=== PATIENT | male | born 1940 | race Caucasian/White ===

== ENCOUNTER 2019-08-16 13:20 | Emergency (ER) | payer MEDICAID, SELFPAY ==
[2019-08-16 13:21] VITALS: BMI 23.6
--- NOTE | 2019-08-16 13:21 | CTR_ITS ---
PROCEDURE INFORMATION: Exam: CT Maxillofacial Without Contrast Exam date and time: 08/16/2019 1:22 PM Age: 78 years old Clinical indication: Injury or trauma; Fall; Initial encounter; Blunt trauma (contusions or hematomas); Nose TECHNIQUE: Imaging protocol: Computed tomography images of the face without contrast. Radiation optimization: All CT scans at this facility use at least one of these dose optimization techniques: automated exposure control; mA and/or kV adjustment per patient size (includes targeted exams where dose is matched to clinical indication); or iterative reconstruction. COMPARISON: No relevant prior studies available. RADIATION DOSE METRICS: Total DLP: 773.98 mGy-cm FINDINGS: Orbits: Bilateral prior cataract surgery. Bones/joints: No acute bony fracture. Sinuses: Normal. No air-fluid levels. Dental: Edentulous maxilla. Soft tissues: This gas is present within the cartilaginous nasal septum (series 2, image 46; series 601, image 35). CT/CT facial bones wo con* [id number] IMPRESSION: 1. Cartilaginous nasal septal injury. 2. No acute facial bony injury identified. Radiation Dose CTDIVOL = (mGy): DLP = 773.98 (mGy-cm)
--- NOTE | 2019-08-16 13:21 | CTR_ITS ---
PROCEDURE INFORMATION: Exam: CT Head Without Contrast Exam date and time: 08/16/2019 1:22 PM Age: 78 years old Clinical indication: Injury or trauma; Fall TECHNIQUE: Imaging protocol: Computed tomography of the head without contrast. Radiation optimization: All CT scans at this facility use at least one of these dose optimization techniques: automated exposure control; mA and/or kV adjustment per patient size (includes targeted exams where dose is matched to clinical indication); or iterative reconstruction. COMPARISON: No relevant prior studies available. RADIATION DOSE METRICS: Total DLP: 896.04 mGy-cm FINDINGS: Brain: Mild hypoattenuating foci are noted in the central cerebral, posterior superior periatrial and anterior lateral ventricular periventricular white matter bilaterally. No intracranial hemorrhage. No mass or acute cortical infarction identified. Ventricles: Prominence of the subarachnoid spaces is consistent with the patient's age of 78 years. Disproportionate enlargement of the lateral ventricles is present with an Munguia ratio of 40.2%. The anterior third ventricular transverse dimension is 13.0 mm. The fourth ventricle is normal in size. Bones/joints: Unremarkable. No acute fracture. Sinuses: Visualized sinuses are unremarkable. No fluid levels. Mastoid air cells: Visualized mastoid air cells are well aerated. Orbits: Bilateral prior cataract surgery. Soft tissues: Unremarkable. Vasculature: Mild atherosclerotic calcifications are present involving the carotid artery siphons bilaterally. CT/CT head wo con* [id number] IMPRESSION: 1. Disproportionate prominence of the lateral and third ventricles. Recommend clinical exclusion of symptoms of normal pressure hydrocephalus. Otherwise, age appropriate supratentorial and infratentorial atrophy. 2. Moderate chronic white matter microvascular ischemic disease. 3. No acute intracranial injury identified. Radiation Dose CTDIVOL = (mGy): DLP = 896.04 (mGy-cm)
[2019-08-16 13:34] VITALS: BP 156/104; PULSE 98; RESP 20; TEMP 36.6; O2SAT 99
--- NOTE | 2019-08-16 13:39 | CTR_ITS ---
PROCEDURE INFORMATION: Exam: CT Cervical Spine Without Contrast Exam date and time: 08/16/2019 1:40 PM Age: 78 years old Clinical indication: Injury or trauma; Fall; Initial encounter; Blunt trauma TECHNIQUE: Imaging protocol: Computed tomography images of the cervical spine without contrast. Radiation optimization: All CT scans at this facility use at least one of these dose optimization techniques: automated exposure control; mA and/or kV adjustment per patient size (includes targeted exams where dose is matched to clinical indication); or iterative reconstruction. COMPARISON: No relevant prior studies available. RADIATION DOSE METRICS: Total DLP: 656.14 mGy-cm FINDINGS: Vertebrae: Left C3-C4 facet joint fusion. Discs/Spinal canal/Neural foramina: Moderate atlantodental osteoarthritis. Moderate bilateral C2-C3 bilateral primary facet osteoarthritis. Mild right C3-C4 primary facet osteoarthritis. Severe right C4-C5 primary facet osteoarthritis. Moderate right C4-C5 neural foraminal narrowing. Moderate left, mild right C7-T1 primary facet osteoarthritis. Soft tissues: Unremarkable. Trachea: C5-6 and C6-7 degenerative disc disease with moderate spondylosis. Lungs: Mild paraseptal emphysema bilaterally. CT/CT cervical spin wo con* [id number] IMPRESSION: 1. Degenerative changes as above. 2. No acute cervical spinal bony injury identified. 3. Pulmonary emphysema. Radiation Dose CTDIVOL = (mGy): DLP = 656.14 (mGy-cm)
--- NOTE | 2019-08-16 13:56 | W.ED.FALL ---
HPI - Fall General: Chief Complaint: Fall Stated Complaint: HEAD AND FACE TRAUMA S/P FALL Time Seen by Provider: 08/16/19 13:21 History of Present Illness: HPI Narrative: Patient states he was walking outside at home and lost his balance while going downhill and fell landing face first. Patient has a large area of abrasion to the nose along with swelling and dried blood. Patient denies any neck pain. He denies any other injury. complaint: fall Onset (ago): minute(s) Fall from: standing Fall witnessed: no Place fall occurred: home Loss of consciousness: None Prolonged down time: no Symptoms prior to fall: none Context: tripped/slipped Location of injury: face Associated symptoms-after fall: Reports no associated symptoms Review of Systems General: Reports: 10 or more systems reviewed and unremarkable except in HPI and below ENMT: Reports: nose bleeds PFSH ED PFSH: Social History Smoking and tobacco status: current every day smoker Physical Exam Const: COMMON NORMALS: oriented x3 and alert HENMT: COMMON NORMALS: hearing grossly normal bilaterally; external nose not normal (abrasions; swelling; epistaxis) NOSE: external nose abnormal (Abrasions; epistaxis) nasal deviation, nasal tenderness and nasal abrasion; external nose not normal (abrasions; swelling; epistaxis) Neck/C-Spine: COMMON NORMALS: full ROM, no lymphadenopathy, supple, no meningeal signs and no JVD GENERAL: Yes normal visual inspection CERVICAL SPINE: Yes cervical ROM normal and Yes normal cervical lordosis Resp: COMMON NORMALS: normal respiratory effort, no retractions, no use of accessory muscles and clear to auscultation bilaterally AUSCULTATION: clear to auscultation bilaterally Cardio: COMMON NORMALS: no JVD, regular rate and regular rhythm RATE: regular rate RHYTHM: regular rhythm GI: COMMON NORMALS: normal to inspection, nondistended, normoactive bowel sounds Extremity: COMMON NORMALS: normal to inspection, full ROM and normal capillary refill Neuro: COMMON NORMALS: oriented x3 SENSORIUM/ORIENTATION: Yes alert MENINGEAL SIGNS: Yes no meningeal signs Skin: COMMON NORMALS: skin turgor normal, no jaundice, no petechiae and no mottling GENERAL SKIN EXAM: turgor normal TRAUMA: abrasion (Large area to nose) Course Vital Signs: Vital signs: Vital Signs Temperature 97.9 F 08/16/19 13:34 Pulse Rate 70 08/16/19 14:39 Respiratory Rate 16 08/16/19 14:39 Blood Pressure 136/75 08/16/19 14:39 Pulse Oximetry 97 08/16/19 14:39 MDM - Fall Imaging Data^: CT Head: Radiologist's impression: No intracranial acute abnormality. Cartilaginous injury to the nasal septum. DJD of the cervical spine. Discharge Plan Discharge Patient Disposition: Home, Self-Care Clinical Impression: Fall Qualifiers: Encounter type: initial encounter Qualified Code(s): W19.XXXA - Unspecified fall, initial encounter Abrasion of face Qualifiers: Encounter type: initial encounter Qualified Code(s): S00.81XA - Abrasion of other part of head, initial encounter Nasal abrasion Qualifiers: Encounter type: initial encounter Qualified Code(s): S00.31XA - Abrasion of nose, initial encounter Nasal bone fx-closed Qualifiers: Encounter type: initial encounter Qualified Code(s): S02.2XXA - Fracture of nasal bones, initial encounter for closed fracture Condition: Stable Prescriptions: New Keflex 250 mg capsule 250 mg PO Q6H 10 Days Qty: 40 RF: 0 Tylenol-Codeine #3 300-30 mg tablet 1 tab PO Q6H PRN (Reason: pain) Qty: 14 RF: 0 Discharge Orders: Discharge Order (Routine); Ordered 08/16/19 Ordered By: Feliz Woods Referrals: Trent Talbot MD [Physician] - (Call tomorrow for follow up appointment) Prem Lerma FNP-C [Primary Care Provider] - Coding Level of Care Code ED [employer] Specialist for Chg Fwd Exam Comprehensive
--- NOTE | 2019-08-16 14:37 | PC.NURSE ---
Dried blood on face cleaned with soap and water. No bleeding noted.
[2019-08-16 14:39] VITALS: BP 136/75; PULSE 70; RESP 16; O2SAT 97
--- NOTE | 2019-08-16 17:44 | PC.NURSE ---
Patient was up for discharge at 1440. Patient has been waiting for a ride in the ED room due to hospital policy. Ride obtained. They will be here at 2200. Multiple meals given and dinner tray ordered.
--- NOTE | 2019-08-18 11:38 | DCPLANNER ---
pension manager had message to schedule a follow up appointment for patient with ENT physician, Dr. Rawls. pension manager called the office of Dr. Rawls, spoke with Chel, a follow up appointment is scheduled for Monday, August 19, 2019 at 1:[address] Rawls. pension manager called patient and gave him the appointment information. pension manager was asked to set up transportation for patient. pension manager called medicaid transportation, spoke [place], [place] [id number]. pension manager called patient and informed him that transportation has been arranged for him, that transportation would be at [facility] to pick him up at 11:45 to transport him to that appointment.
--- NOTE | 2019-09-09 08:17 | DCPLANNER ---
Patient did attend appointment scheduled for 08.19.19 with ENT, Dr. Rawls.
== END 2019-08-16 21:51 | disposition home or self-care (01) ==
PROVIDERS: Emergency Provider Family Medicine; Family Provider Nurse Practitioner; PCP Nurse Practitioner
DX: S02.2XXA Fracture of nasal bones, initial encounter for closed fracture (principal); S00.31XA Abrasion of nose, initial encounter; W01.0XXA Fall on same level from slipping, tripping and stumbling without subsequent striking against object, initial encounter; F17.210 Nicotine dependence, cigarettes, uncomplicated
CPT/HCPCS: 12345; 70450; 70486; 72125; 99282; 99283

== ENCOUNTER → 2020-08-17 11:49 | Outpatient (BNVA) | payer MEDICAID, SELFPAY | PROVIDERS: Family Provider Nurse Practitioner; PCP Nurse Practitioner; Visit Provider Nurse Practitioner | DX: J44.9 Chronic obstructive pulmonary disease, unspecified (principal) | CPT/HCPCS: 71046; 80053; 84443; 85025 ==

== ENCOUNTER → 2020-08-31 11:54 | Outpatient (BNVA) | payer MEDICAID, SELFPAY | PROVIDERS: Family Provider Nurse Practitioner; PCP Nurse Practitioner; Visit Provider Nurse Practitioner | DX: M79.641 Pain in right hand (principal) | CPT/HCPCS: 73130 ==

== ENCOUNTER → 2020-10-05 09:22 | Outpatient (BNVA) | payer MEDICAID, SELFPAY | PROVIDERS: Family Provider Nurse Practitioner; PCP Nurse Practitioner; Visit Provider Nurse Practitioner | DX: M51.36 Other intervertebral disc degeneration, lumbar region (principal) | CPT/HCPCS: 72100 ==

== ENCOUNTER 2020-10-28 13:29 | Outpatient (CLI) | payer MEDICAID, SELFPAY ==
--- NOTE | 2020-10-28 13:45 | MR_ITS ---
WS: [id number] MRI BRAIN WITHOUT CONTRAST HISTORY: R26.89 - Other abnormalities of gait and mobility COMPARISON: CT head 08/16/2019 TECHNIQUE: Diffusion imaging, multiplanar T1, T2 and FLAIR imaging obtained. No evidence for acute infarct or hemorrhage. Franco-white matter differentiation is normal. There is severe confluent and a few patchy areas of white matter signal abnormality. White matter sig nal abnormalities extending from the vertex confluent early inferiorly around the ventricles. No prio r focal infarct. No hemorrhage. Ventricles are mildly prominent, more than expected for loss of cerebral volume. As seen on the prior CT consider normal pressure hydrocephalus. No inferior displacement of cerebellar tonsils. The sella turcica and pituitary gland are unremarkabl e. Dural venous sinuses and [place] demonstrate no abnormality on this unenhanced studies. Paranasal sinuses: Clear. Mastoid air cells: Normal. Calvarium and scalp: Intact. MR/MR head wo con* [id number] IMPRESSION: 1. No acute infarct or hemorrhage. 2. Severe, confluent and patchy signal abnormality throughout the white matter . Consider advanced small vessel ischemic disease. These changes can be seen wi th hypertension, smoking history, diabetes and migraines. 3. Mild ventriculomegaly. Slightly aerated than expected for atrophy. Consider normal pressure hydrocephalus.
== END 2020-10-28 13:30 | disposition home or self-care (01) ==
LOC: RADSHAW 13:35
PROVIDERS: PCP Nurse Practitioner; Visit Provider Nurse Practitioner
DX: R26.89 Other abnormalities of gait and mobility (principal); G93.89 Other specified disorders of brain
CPT/HCPCS: 70551

== ENCOUNTER → 2021-03-27 12:10 | Outpatient (BNVA) | payer MEDICAID, SELFPAY | PROVIDERS: PCP Nurse Practitioner; Visit Provider Nurse Practitioner | DX: I10 Essential (primary) hypertension (principal); M51.36 Other intervertebral disc degeneration, lumbar region; J44.9 Chronic obstructive pulmonary disease, unspecified; I73.9 Peripheral vascular disease, unspecified | CPT/HCPCS: 80053; 80061; 84443 ==

== ENCOUNTER → 2021-11-10 10:42 | Outpatient (BNVA) | payer MEDICAID, SELFPAY | PROVIDERS: PCP Nurse Practitioner; Visit Provider Nurse Practitioner | DX: R26.89 Other abnormalities of gait and mobility (principal); M51.36 Other intervertebral disc degeneration, lumbar region; I73.9 Peripheral vascular disease, unspecified; J44.9 Chronic obstructive pulmonary disease, unspecified; I10 Essential (primary) hypertension | CPT/HCPCS: 80053; 80061; 82607; 84443 ==

== ENCOUNTER → 2023-02-19 15:49 | Outpatient (BNVA) | payer MEDICAID, SELFPAY | PROVIDERS: PCP Nurse Practitioner; Visit Provider Nurse Practitioner | DX: I10 Essential (primary) hypertension (principal) | CPT/HCPCS: 80053; 80061; 84443; 85025 ==

== ENCOUNTER 2023-02-27 12:00 | Observation (INO) | payer MEDICAID, SELFPAY ==
[2023-02-27] VITALS (44 sets, daily range): BP systolic 155–178; BP diastolic 67–102; PULSE 73–96; RESP 11–28; TEMP 36.4–37; O2SAT 95–100; BMI 26.2; BMI 23.1
--- NOTE | 2023-02-27 12:28 | XR_ITS ---
WS: [id number] Exam: XR chest 1V portable [id number] Date/Time of Exam: 02/27/2023 12:47 PM Reason For Exam: dyspnea/cough Comparison 08/17/2020. The lungs are hyperinflated and clear. Normal cardiomediastinal silhouette. No pleural effusions. Reg ional bony structures appear normal. IMPRESSION: 1. Pulmonary hyperinflation. No acute process.
--- NOTE | 2023-02-27 12:36 | ECG_ITS ---
[facility] Test Date: 2023-02-27 Pat Name: Scott Silva Department: Room: Gender: Male Hand Edge Bander: : 1940 Requested By: Mina Barnes Order Number: [id number] Niki MD: Taj Lisa M.D. Measurements Intervals [place] Rate: 79 P: 72 RI: 147 QRS: 82 QRSD: 87 T: 94 QT: 391 QTc: 449 Interpretive Statements SINUS RHYTHM No previous ECG available for comparison Electronically Signed On 02-27-2023 15:11:49 [employer] by Taj Lisa M.D. [id number]
--- NOTE | 2023-02-27 12:48 | XR_ITS ---
WS: [id number] Exam: XR hand LT min 3V* [id number] Date/Time of Exam: 02/27/2023 12:49 PM Reason For Exam: Trauma No acute fracture or dislocation. No soft tissue foreign bodies are identified. IMPRESSION: 1. No acute fracture or other significant finding.
--- NOTE | 2023-02-27 12:48 | CT_ITS ---
WS: [id number] CT HEAD TECHNIQUE: Noncontrast CT of the head obtained from the skullbase to the vertex. CLINICAL INFORMATION: Trauma COMPARISON: MRI 2020. CT 2019 DLP: 1398.[address] scans at [facility] use at least one of these dose optimization techniques: automated e xposure control; mA and/or kV adjustment per patient size (includes targeted exams where dose is matc hed to clinical indication); or iterative reconstruction. FINDINGS: No evidence of intracranial hemorrhage or mass effect. Ventricular system and basal cisterns are galindo nt. Moderate small vessel changes with moderate parenchymal volume loss. Chronic lacunar infarct LEFT basal ganglia. Vascular calcification. Paranasal sinuses and mastoid air cells are well aerated. .Normal visualized soft tissues. IMPRESSION: 1. No evidence of intracranial hemorrhage or mass effect. 2. Moderate small vessel changes. Moderate parenchymal volume loss. 3. No acute intracranial findings.
--- NOTE | 2023-02-27 12:48 | CT_ITS ---
WS: [id number] CT CERVICAL TRAUMA TECHNIQUE: Noncontrast CT of the cervical spine with coronal and sagittal reformatted images. CLINICAL INFORMATION: Trauma COMPARISON: 2019 DLP: 1398.[address] scans at [facility] use at least one of these dose optimization techniques: automated e xposure control; mA and/or kV adjustment per patient size (includes targeted exams where dose is matc hed to clinical indication); or iterative reconstruction. FINDINGS: Straightening of the normal cervical lordosis. Moderate spondylitic changes. Disc space narrowing wor se at C5-C6 and C6-C7. Normal craniocervical junction. Normal C1-C2 articulation. Dens is normal in a ppearance. Normal occipital condyles. No high-grade spinal canal narrowing. Normal C1 ring. No eviden ce of acute fracture or dislocation. Fibrosis in the lung apices with emphysematous changes Normal prevertebral soft tissues. Mastoids air cells are well aerated. IMPRESSION: No evidence of acute fracture or dislocation.
--- NOTE | 2023-02-27 13:02 | XR_ITS ---
WS: [id number] Exam: XR pelvis 1-2V* [id number] Date/Time of Exam: 02/27/2023 1:23 PM Reason For Exam: pain No pelvic fracture noted. Moderate DJD of the LEFT hip. No sign of bone destruction. Soft tissues are unremarkable. IMPRESSION: 1. No pelvic fracture. 2. Moderate DJD of the LEFT hip.
--- NOTE | 2023-02-27 13:02 | CT_ITS ---
WS: [id number] CT LUMBAR SPINE TECHNIQUE: Noncontrast CT of the lumbar spine with coronal and sagittal reformatted images. CLINICAL INFORMATION: trauma COMPARISON: None. DLP: 619.[address] scans at [facility] use at least one of these dose optimization techniques: automated e xposure control; mA and/or kV adjustment per patient size (includes targeted exams where dose is matc hed to clinical indication); or iterative reconstruction. FINDINGS: Mild lumbar curve. Slight anterolisthesis L4 on L5. Disc narrowing worse at L1-2. L1-L2: Slight retrolisthesis L1 on L2. Mild facet arthropathy. Spinal canal is patent. Mild RIGHT gre ater than LEFT foraminal narrowing. L2-L3: Mild annular bulging. Moderate facet arthropathy. Foramen are patent. L3-L4: Mild annular bulging. Moderate to advanced facet arthropathy. Moderate central canal stenosis. Mild LEFT greater than RIGHT foraminal narrowing. L4-L5: Slight anterolisthesis L4 on L5. LEFT paracentral protrusion with impingement on the traversin g LEFT L5 nerve root in the subarticular recess. Moderate central canal stenosis. Moderate LEFT great er than RIGHT foraminal narrowing. Moderate to advanced facet arthropathy. L5-S1: Mild annular bulging with slight contact of the traversing S1 nerve roots LEFT greater than RI GHT. Moderate facet arthropathy. Foramen are patent. Visualized pelvic bony structures: Normal. Paravertebral soft tissues: Normal. IMPRESSION: 1. No acute fractures. 2. Moderate spondylitic changes with grade 1 anterolisthesis L4 on L5. 3. Moderate central canal stenosis at L3-4 and moderate central canal stenosis L4-5 with impingement on the traversing LEFT L5 nerve root in the subarticular recess. 4. Moderate to advanced arthropathy L3-L4 and L4-L5.
--- NOTE | 2023-02-27 13:08 | ED_ITS ---
HPI - Syncope General: Chief Complaint: Syncope Stated Complaint: fall Time Seen by Provider: 02/27/23 12:27 Source: patient and other (Caregiver) Mode of arrival: wheelchair Limitations: no limitations History of Present Illness: Patient is an 82-year-old male with past medical history of hypertension and COPD who presents to the emergency department accompanied by caregiver due to syncopal episode onset last night. Per caregiver, she found the patient on the ground this morning at approximately 1000. The patient states that he was on a chair fixing something around his house last night, when he fell backwards and hit the floor. He states that this occurred around 2100, and that he stayed on the ground all night. He also states that upon initial impact to the ground, he lost consciousness. He is unaware of if he hit his head or injured any other body part in the process, aside from the dorsal aspect of his left knuckle. He lives home alone, and is seen by the caregiver regularly. He states that he has been falling often as of late, and recently hit his head with the fall and sha ttered his glasses. He states that occasionally he gets dizzy and has chest pain prior to the falls, and that his dizziness is worsened when he suddenly stands up. He denies any current visual changes, headache, bruising, chest pain, breathing difficulty, abdominal pain, or any other symptoms. He states that he has chronic aches and pains from arthritis, but that it has been getting increasingly difficult to ambulate on his own. He is not currently on a blood thinner. MD complaint: other (Syncope) Onset (ago): hour(s) Associated symptoms: Deny abdominal pain, chest pain, fever(s), headache(s), lig htheadedness or nausea Review of Systems Const: Denies: fever(s), chills, fatigue or diaphoresis Card: Reports: syncope; Denies: chest pain, palpitations, edema, lightheadedness or dyspnea on exertion Resp: Denies: dyspnea or productive cough GI: Denies: abdominal pain, nausea, vomiting, diarrhea or constipation : Denies: difficulty urinating, dysuria, urinary frequency or urinary urgency Musc: Reports: extremity pain (Left hand); Denies: neck pain or back pain Skin/Breast: Denies: rash Neuro: Reports: difficulty walking; Denies: headache(s), numbness in extremities, weakness in extremities or dizziness [facility] ED PFSH: Medical History Cigarette smoker COPD (chronic obstructive pulmonary disease) Daily consumption of alcohol Beer or whiskey stop 2016 DDD (degenerative disc disease), lumbar Essential (primary) hypertension Surgical History History of appendectomy History of cataract bilateral Family History Father Cancer Other Lung disease Denies family history of Anesthesia complication Social History Smoking and tobacco/nicotine status: current every day tobacco/nicotine user Alcohol intake: former Year of sobriety/quit date alcohol: 2016 Substance/Drug Use: unknown Adopted: No Caregiver/support person: No Lives independently: Yes Household members: none Housing: Manufactured/Mobile home Marital status: Single Highest education level completed: 10th Grade service: No Current occupational status: retired Do you think of yourself as: Straight/Heterosexual Current gender identity: Male Physical Exam Const: COMMON NORMALS: no acute distress and alert GENERAL APPEARANCE: cooperative and disheveled ORIENTATION/CONSCIOUSNESS: Yes awake, Yes oriented to person, Yes oriented to place and Yes oriented to time HENMT: COMMON NORMALS: normocephalic, atraumatic, hearing grossly normal bilaterally, external ears normal, EAC's normal, TM's normal bilaterally, Normal nasal mucous membranes and turbinates present, moist oral mucous membranes and oropharynx normal HEAD & SCALP: normocephalic and atraumatic; no raccoon eyes NOSE: Normal nasal mucous membranes and turbinates present EXTERNAL EAR: Yes external ears normal EXTERNAL AUDITORY CANAL: EAC's normal TYMPANIC MEMBRANE: TM's normal bilaterally Eye: COMMON NORMALS: Equal, round and reactive pupils present, EOMs intact bilaterally, conjunctivae normal and no scleral icterus CONJUNCTIVA: Yes conj unctivae normal PUPIL: Yes Equal, round and reactive pupils present Neck/C-Spine: COMMON NORMALS: full ROM, no lymphadenopathy, supple and no JVD Lymph: LYMPHATIC: no lymphadenopathy noted and no lymphedema noted Resp: COMMON NORMALS: normal respiratory effort, No retractions, No use of accessory muscles and clear to auscultation bilaterally AUSCULTATION: clear to auscultation bilaterally Cardio: COMMON NORMALS: no JVD, regular rate, regular rhythm and No murmurs present (Cardio) RATE: regular rate RHYTHM: regular rhythm GI: COMMON NORMALS: Soft to palpation and No hepatosplenomegaly present AUSCULTATION: Yes normoactive bowel sounds PALPATION: Yes Soft to palpation, No Tenderness to palpation present (GI), No Guarding due to palpation present (GI) and Yes No hepatosplenomegaly present Extremity: COMMON NORMALS: normal to inspection, capillary refill normal, no clubbing, cyanosis or edema, no calf tenderness and no pedal edema Neuro: COMMON NORMALS: moves all extremities, no focal motor deficits and no sensory deficits noted SENSORIUM/ORIENTATION: Yes alert, Yes oriented to person, Yes oriented to place and Yes oriented to time COORDINATION/BALANCE: [id number] test normal and [id number]-fz-[id number] test normal SPEECH: speech normal GAIT: Yes Unable to assess gait MOTOR EXAM: no tremor noted COOR DINATION: [id number]-ga-[id number] test normal and fzjh-fj-cubg test normal Skin: COMMON NORMALS: no rashes or lesions noted GENERAL SKIN EXAM: no rashes or lesions noted TRAUMA: abrasion (Left third knuckle) Course Vital Signs: Vital signs: Vital Signs Temperature 97.6 F 02/27/23 16:44 Pulse Rate 80 02/27/23 16:44 Respiratory Rate 18 02/27/23 16:44 Blood Pressure 176/80 02/27/23 16:44 Pulse Oximetry 98 02/27/23 16:44 Oxygen Delivery Me thod Room Air 02/27/23 16:44 MDM - Syncope Medical Decision Making This patient was seen and evaluated the emergency department today for syncope. Approximate downtime as noted by caregiver was 13 hours. Examination of the patient showed no obvious deformities or other signs of injuries, aside from a small abrasion on the dorsal aspect of the left hand. He has been alert and oriented, though slightly lethargic. His vitals have also remained stable throughout his ED course. Laboratory work showed an elevated white count of 12.2, and signs of acute kidney injury with a creatinine of 1.4 and creatinine kinase of 815. The rest of his labs were otherwise unremarkable. ECG was negative. Imaging included a CT of his cervical and lumbar spine, as well as his head, which were all negative for signs of acute fractures or bleeds. Chest x-ray was negative. Pelvic x-ray and left hand x-ray were also negative. Dr. Kaminski, hospitalist, was consulted in regards to patient's case and current findings. He accepts the as an inpatient. Patient will be admitted for further evaluation of his syncope as well as rhabdomyolysis. Medical Records I reviewed the patient's medical records. Lab Data I reviewed the patient's lab results. 02/27/23 13:55 02/27/23 13:55 Laboratory Results WBC 12.16 10^3/uL (3.29-11.43) H 02/27/23 13:55 RBC 3.96 10^6/uL (3.85-5.65) 02/27/23 13:55 Hgb 13.30 g/dL (11.27-16.99) 02/27/23 13:55 Hct 39.5 % (37-53) 02/27/23 13:55 MCV 99.7 fl (82-101) 02/27/23 13:55 MCH 33.6 pg (27-33) H 02/27/23 13:55 MCHC 33.7 g/dL (30-55) 02/27/23 13:55 RDW 12.5 % (12.1-15.1) 02/27/23 13:55 Plt Count 247 10^3/cmm (157-399) 02/27/23 13:55 MPV 10.0 fL (7.4-10.4) 02/27/23 13:55 Neut % (Auto) 82.4 % 02/27/23 13:55 Lymph % (Auto) 8.1 % 02/27/23 13:55 O'Brien % (Auto) 8.3 % 02/27/23 13:55 Eos % (Auto) 0.7 % 02/27/23 13:55 Baso % (Auto) 0.2 % 02/27/23 13:55 Neut # (Auto) 10.02 10^3/uL (1.8-7.7) H 02/27/23 13:55 Lymph # (Auto) 1.0 10^3/uL (0.8-4.8) 02/27/23 13:55 O'Brien # (Auto) 1.0 10^3/uL (0.2-0.9) H 02/27/23 13:55 Eos # (Auto) 0.1 10^3/uL (0.0-0.8) 02/27/23 13:55 Baso # (Auto) 0.0 10^3/uL (0.0-0.1) 02/27/23 13:55 Nucleated RBC % (auto) 0 % 02/27/23 13:55 Nucleated RBCs # 0.0 /100WBC 02/27/23 13:55 Sodium 133 mmol/L (136-145) L 02/27/23 13:55 Potassium 4.1 mmol/L (3.5-5.1) 02/27/23 13:55 Chloride 96 mmol/L (98-107) L 02/27/23 13:55 Carbon Dioxide 23 mmol/L (22-29) 02/27/23 13:55 Anion Gap 18.1 (5-19) 02/27/23 13:55 BUN 26 mg/dL (8-23) H 02/27/23 13:55 Creatinine 1.4 mg/dL (0.7-1.2) H 02/27/23 13:55 GFR Calculation Not Reportable 02/27/23 13:55 Glucose 90 mg/dL (65-115) 02/27/23 13:55 Calculated Osmolality 280 mOsm/kg (285-295) L 02/27/23 13:55 Calcium 9.0 mg/dL (8.5-10.5) 02/27/23 13:55 Total Bilirubin 0.8 mg/dL (0.15-1.2) 02/27/23 13:55 AST 29 U/L (0-40) 02/27/23 13:55 ALT 13 U/L (0-41) 02/27/23 13:55 Alkaline Phosphatase 75 U/L (40-130) 02/27/23 13:55 Creatine Kinase 815 U/L (39-308) H* 02/27/23 13:55 Troponin T Baseline 22 ng/L (0-15) H 02/27/23 13:55 Total Protein 7.1 g/dL (6.6-8.7) 02/27/23 13:55 Albumin 4.4 g/dL (3.5-5.2) 02/27/23 13:55 Globulin 2.7 g/dL (1.3-4.6) 02/27/23 13:55 Lipase 25 U/L (13-60) 02/27/23 13:55 Urine Color Yellow (Yellow) 02/27/23 13:55 Urine Appearance Clear (CLEAR) 02/27/23 13:55 Urine pH 6 (5-7) 02/27/23 13:55 Ur Specific [place] 1.015 (1.005-1.030) 02/27/23 13:55 Urine Protein Trace (Negative) 02/27/23 13:55 Urine Glucose (UA) Norm (Normal) 02/27/23 13:55 Urine Ketones 1+ (Negative) H 02/27/23 13:55 Urine Blood Neg (Negative) 02/27/23 13:55 Urine Nitrate Negative (Negative) 02/27/23 13:55 Urine Bilirubin Neg (Negative) 02/27/23 13:55 Urine Urobilinogen Norm mg/dL (Negative) 02/27/23 13:55 Ur Leukocyte Esterase Negative (Negative) 02/27/23 13:55 Urine RBC Rare /hpf (0-2) 02/27/23 13:55 Urine WBC Rare /hpf (0-5) 02/27/23 13:55 Ur Squamous Epith Cells None /hpf (0-5) 02/27/23 13:55 Amorphous Sediment Not Reportable 02/27/23 13:55 Urine Bacteria Trace /hpf (NONE) 02/27/23 13:55 Urine Mucus None /hpf 02/27/23 13:55 All radiology interpretation(s) finalized by discharge Discharge Plan Discharge Patient Disposition: Admitted As Inpatient Admit Provider: Ananya Kaminski Clinical Impression: Syncope, Rhabdomyolysis Condition: Stable Coding Level of Care Code ED Lead Cook for Chandan Oleary
[2023-02-27 14:09] LABS: Basophils % 0.2 %; Eosinophils # 0.1 10^3/uL (0.0-0.8); Eosinophils % 0.7 %; Hematocrit 39.5 % (37-53); Lymphocytes % 8.1 %; Mean Corpuscular HGB Conc 33.7 g/dL (30-55); Mean Corpuscular Hemoglobin 33.6 pg (27-33); Mean Corpuscular Volume 99.7 fl (82-101); Monocytes % 8.3 %; Neutrophils # 10.02 10^3/uL (1.8-7.7); Neutrophils % 82.4 %; Nucleated Red Blood Cells % 0 %; Platelet Count 247 10^3/cmm (157-399); Red Blood Count 3.96 10^6/uL (3.85-5.65); Red Cell Distribution Width 12.5 % (12.1-15.1); White Blood Count 12.16 10^3/uL (3.29-11.43)
[2023-02-27 14:27] LABS: Bilirubin Urine Neg (Negative); Blood Urine Neg (Negative); Glucose Urine UA Norm (Normal); Ketones Urine 1+ (Negative); Leukocyte Esterase Urine Negative (Negative); Nitrate Urine Negative (Negative); Protein Urine Trace (Negative); Specific Gravity, Urine 1.015 (1.005-1.030); Urine Appearance Clear (CLEAR); Urine Color Yellow (Yellow); Urobilinogen Urine Norm (Negative); pH Urine 6 (5-7)
[2023-02-27 14:28] LABS: Add Urine Microscopic? YES
[2023-02-27 14:29] LABS: Troponin(5th) Baseline 22 ng/L (0-15)
--- NOTE | 2023-02-27 14:29 | ECG_ITS ---
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 Measurements Intervals [place] Rate: 76 P: 75 KS: 146 QRS: 85 QRSD: 92 T: 77 QT: 395 QTc: 444 Interpretive Statements SINUS RHYTHM Compared to ECG 02/27/2023 12:36:50 No significant changes Electronically Signed On 02-27-2023 15:13:07 INSTALLER MOLDING AND TRIM by Taj Lisa M.D. [id number]
[2023-02-27 14:30] LABS: Alanine Aminotransferase 13 U/L (0-41); Albumin Level 4.4 g/dL (3.5-5.2); Alkaline Phosphatase 75 U/L (40-130); Blood Urea Nitrogen 26 mg/dL (8-23); Carbon Dioxide 23 mmol/L (22-29); Chloride 96 mmol/L (98-107); Globulin 2.7 g/dL (1.3-4.6); Glucose 90 mg/dL (65-115); Lipase 25 U/L (13-60); Osmolality Calculated 280 mOsm/kg (285-295); Sodium 133 mmol/L (136-145); Total Bilirubin 0.8 mg/dL (0.15-1.2); Total Protein 7.1 g/dL (6.6-8.7)
[2023-02-27 14:32] LABS: Add Urine Culture? No; Bacteria Urine TRACE /hpf; RBC Urine RARE /hpf (0-2); WBC Urine RARE /hpf (0-5)
[2023-02-27 14:33] LABS: Anion Gap 18.1 (5-19); Potassium 4.1 mmol/L (3.5-5.1)
[2023-02-27 14:34] LABS: Aspartate Amino Transferase 29 U/L (0-40)
[2023-02-27 14:35] LABS: Creatine Phosphokinase 815 U/L (39-308)
--- NOTE | 2023-02-27 16:08 | PM.HP ---
Providers/Chief Complaint Admitting Physician: Ananya Kaminski MD Primary Care Provider: Prem Lerma, FIELD CREW CHIEF-C Chief Complaint: fall History of Present Illness Scott Silva is a 82 year old male presented after sustaining a fall, patient stating that he lives alone he disowned his family, lives in a trailer, he gets meals from [employer], stating that today his knees gave up on him and he fell while he was using insect repellent spray inside his trailer, he smokes more than 1 pack a day, denies use of alcohol, denies history of coronary disease CHF, stating that there is a caregiver who checked on him and called ambulance today He is denying chest pain, fever diarrhea, patient stating that he had a blackout event but not able to give me much details Review of Systems Const: Denies: fever(s) Eyes: Denies: change in vision ENMT: Denies: throat pain Card: Denies: chest pain Resp: Denies: dyspnea GI: Denies: abdominal pain : Denies: flank pain Medications/Allergies Home Medications Medication Instructions Recorded Confirmed Last Taken Type DME: Walker #1 ea 10/19/21 02/27/23 Unknown Rx duloxetine 30 mg capsule,delayed 30 mg PO BID #60 caps 02/19/23 02/27/23 02/26/23 Rx release (Cymbalta) magnesium oxide 400 mg PO BID #60 caps 02/19/23 02/27/23 02/26/23 Rx umeclidinium 62.5 mcg-vilanterol 1 inh inhalation Q24H #60 ea 02/19/23 02/27/23 02/26/23 Rx 25 mcg/actuation powdr for inhalation (Anoro Ellipta) valsartan 80 mg tablet (Diovan) 80 mg PO DAILY #30 tabs 02/19/23 02/27/23 02/26/23 Rx Allergies Allergy/AdvReac Type Severity Reaction Status Date / Time No Known Allergies Allergy Verified 02/19/23 15:36 PFSH Acute PFSH: Medical History Cigarette smoker COPD (chronic obstructive pulmonary disease) Daily consumption of alcohol Beer or whiskey stop 2016 DDD (degenerative disc disease), lumbar Essential (primary) hypertension Surgical History History of appendectomy History of cataract bilateral Family History Father Cancer Other Lung disease Denies family history of Anesthesia complication Social History Smoking and tobacco/nicotine status: current every day tobacco/nicotine user Alcohol intake: former Year of sobriety/quit date alcohol: 2016 Substance/Drug Use: unknown Adopted: No Caregiver/support person: No Lives independently: Yes Household members: none Housing: Manufactured/Mobile home Marital status: Single Highest education level completed: 10th Grade service: No Current occupational status: retired Do you think of yourself as: Straight/Heterosexual Current gender identity: Male Vitals/I&O/Wt Last Vital Signs Temp 97.8 F 02/27/23 12:16 Pulse 73 02/27/23 15:35 Resp 24 H 02/27/23 15:35 BP 162/102 02/27/23 15:35 Pulse Ox 98 02/27/23 15:35 O2 Del Method Room Air 02/27/23 15:25 Weight last 48 hrs Weight 75.75 kg Physical Exam Narrative: Nonfocal neuro exam Muffled voice GCS 15 Edentulous Able to answer questions Disabled Unkept appearance Hemodynamically stable Currently on room air Lower extremity are thin without any swelling Abdomen soft Eating dinner S1, S2 Data 02/27/23 13:55 02/27/23 13:55 A&P Assessment and plan (1) Syncope: (2) Rhabdomyolysis: (3) Essential (primary) hypertension: (4) Balance disorder: (5) Claudication: (6) Cigarette smoker: Plan Recurrent falls Patient denies urine incontinence Cognitive impairment Concern for normal pressure hydrocephalus as per previous brain imaging Patient endorsing that his knees give up on him Previous history of peripheral vascular disease He has seen Dr. Villatoro for peripheral vascular disease and claudication I do not see any CAROL or echo report or any stress test, he saw mobile application development lead 2020 For now I will give him IV fluids We will treat for mild rhabdomyolysis Optimize antibiotic regimen Patient is stating that he does not want to go to any halfway He is full code Does not have any family DVT prophylaxis on board Check TSH and B12 Attestations Medical Necessity Statement*: Continue medical management Diagnoses Syncope R55 Rhabdomyolysis M62.82 Essential (primary) hypertension I10 Balance disorder R26.89 Claudication I73.9 Cigarette smoker F17.210
[2023-02-27] MEDS: sodium chloride 0.9% 1,000 ML 100 ML IV (17:10)
[2023-02-27 17:28] LABS: D Dimer 0.88 ug/mLFEU (0-0.59)
--- NOTE | 2023-02-27 18:04 | ECG_ITS ---
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 Measurements Intervals [place] Rate: 93 P: 82 KS: 144 QRS: 87 QRSD: 88 T: 72 QT: 370 QTc: 461 Interpretive Statements SINUS RHYTHM Compared to ECG 02/27/2023 14:33:58 No significant changes Electronically Signed On 03-01-2023 14:16:37 QUALIFICATION ENGINEER by Taj Lisa M.D. [id number]
[2023-02-27 18:13] LABS: Troponin 5 2HR 23.13 ng/L (0-15)
[2023-02-27 18:20] LABS: Troponin 5 2HR Delta 1.13 ABS# (0-10)
[2023-02-27 19:17] LABS: Thyroid Stimulating Hormone 1.02 uIU/mL (0.27-4.20); Vitamin B12 394 pg/mL (232-1245)
--- NOTE | 2023-02-27 19:23 | USCV_ITS ---
Scott Silva Age: 82 Gender: M : 1940 Exam Date: 02/27/2023 19:43 Ordering Phys: Ananya Kaminski MD Technologist: CELESTINO Exam Location: [facility] – [place] Indication: syncope. history of COPD, HTN. No history of cardiac intervention per patient. BP: 176 / 80 HR: 78 Rhythm: Sinus Technical Quality: Adequate MEASUREMENTS (Male / Female) Normal Values 2D ECHO LV Diastolic Diameter PLAX 3.2 cm 4.2 - 5.9 / 3.9 - 5.3 cm LV Systolic Diameter PLAX 2.4 cm IVS Diastolic Thickness 1.3 cm 0.6 - 1.0 / 0.6 - 0.9 cm IVS Systolic Thickness 1.1 cm LVPW Diastolic Thickness 1.1 cm 0.6 - 1.0 / 0.6 - 0.9 cm LVPW Systolic Thickness 1.6 cm LVOT Diameter 2.0 cm LV Ejection Fraction 2D Teich 50.7 % LV Ejection Fraction MOD 2C 63.0 % LV Ejection Fraction 2C AL 63.5 % LA Diameter 3.2 cm LA Width 3.4 cm LA Height 3.2 cm RA Width 2.7 cm RA Height 4.3 cm Aorta at Sinotubular Diameter 2.5 cm IVC Diameter 1.4 cm M-MODE Aortic Annulus Diameter 2.8 cm LA Ao Ratio MM 1.1 MV E Point Septal Separation 0.0 cm DOPPLER AV Peak Velocity 104.0 cm/s LVOT Peak Velocity 114.0 cm/s AV Area Cont Eq vti 3.2 cm squared AV Area Cont Eq pk 3.4 cm squared MV Peak Velocity 130.0 cm/s MV Area PHT 4.3 cm squared Mitral E to A Ratio 0.9 MV E' Velocity 57.0 cm/s Mitral E to MV E' Ratio 12.9 Mitral E to LV E' Lateral Ratio 14.7 Mitral E to LV E' Septal Ratio 11.5 TV Peak E Velocity 50.0 cm/s PV Peak Velocity 89.0 cm/s RV Acceleration Time 0.2 s RV Ejection Time 0.3 s RV AcT/ET 0.5 FINDINGS Left Ventricle Normal left ventricular size and systolic function, EF 62 %. Mild left ventricular hypertrophy. No regional wall motion abnormalities. Grade I/IV diastolic dysfunction (abnormal relaxation filling pattern), normal to mildly elevated filling pressures. Right Ventricle The right ventricle is normal in size and function. Right Atrium The right atrium is normal in size. Left Atrium The left atrium is normal in size. Mitral Valve No gross abnormalities noted Mild mitral annular calcification. Aortic Valve Thickened aortic valve. Tricuspid Valve No gross abnormalities noted Pulmonic Valve Mild pulmonary valve regurgitation. Pericardium Normal pericardium without effusion. Aorta Normal ascending aorta dimension. IVC The inferior vena cava appears normal. CONCLUSIONS Normal left ventricular size and systolic function, EF 62 %. Mild left ventricular hypertrophy. No regional wall motion abnormalities. Grade I/IV diastolic dysfunction (abnormal relaxation filling pattern), normal to mildly elevated filling pressures. Thickened aortic valve. Mild mitral annular calcification. There is no pericardial effusion. There are no intracardiac masses. No similar previous studies are available for comparison Dr Jenniffer Goldstein MD FAC (Electronically Signed) Final Date: 27 February 2023 22:31 S
[2023-02-27 19:54] LABS: Estmated Average Glucose 85; Hemoglobin A1C 4.6 % (4.0-6.0)
[2023-02-27] MEDS: amlodipine 10 mg Tablet PO (20:18)
[2023-02-27] MEDS: metoprolol tartrate 25 mg Tablet PO (20:18)
[2023-02-28] VITALS: BP 108/62; PULSE 66; RESP 17; TEMP 37; O2SAT 97
[2023-02-28] MEDS: sodium chloride 0.9% 1,000 ML 100 ML IV (02:16)
[2023-02-28 04:57] LABS: Basophils # 0.1 10^3/uL (0.0-0.1); Basophils % 0.6 %; Eosinophils # 0.4 10^3/uL (0.0-0.8); Eosinophils % 4.1 %; Hematocrit 39.7 % (37-53); Lymphocytes # 1.4 10^3/uL (0.8-4.8); Lymphocytes % 15.6 %; Mean Corpuscular Hemoglobin 33.2 pg (27-33); Mean Corpuscular Volume 103.7 fl (82-101); Mean Platelet Volume 10.2 fL (7.4-10.4); Monocytes # 0.8 10^3/uL (0.2-0.9); Monocytes % 8.6 %; Neutrophils # 6.18 10^3/uL (1.8-7.7); Neutrophils % 70.8 %; Nucleated Red Blood Cells % 0 %; Platelet Count 210 10^3/cmm (157-399); Red Blood Count 3.83 10^6/uL (3.85-5.65); Red Cell Distribution Width 12.7 % (12.1-15.1); White Blood Count 8.73 10^3/uL (3.29-11.43)
[2023-02-28 05:00] VITALS: BP 110/66; PULSE 74; RESP 16; TEMP 37; O2SAT 97
[2023-02-28 05:17] LABS: Blood Urea Nitrogen 24 mg/dL (8-23); Calcium 8.4 mg/dL (8.5-10.5); Carbon Dioxide 23 mmol/L (22-29); Chloride 103 mmol/L (98-107); Glucose 93 mg/dL (65-115); Magnesium 2.3 mg/dL (1.7-2.3); Osmolality Calculated 288 mOsm/kg (285-295); Phosphorus 2.8 mg/dL (2.5-4.5); Sodium 137 mmol/L (136-145)
[2023-02-28 05:21] LABS: Anion Gap 15.5 (5-19); Potassium 4.5 mmol/L (3.5-5.1)
--- NOTE | 2023-02-28 05:27 | PC.NURSE ---
when putting pt on bed tovar pt was dirty pt was clean and new linens on bed pt is rest with eyes closed and door open @[id number]
[2023-02-28 05:39] LABS: Creatine Phosphokinase 572 U/L (39-308)
[2023-02-28 08:17] VITALS: BP 160/72; PULSE 70; RESP 15; TEMP 36.6; O2SAT 97
[2023-02-28 08:25] VITALS: BP 160/72
[2023-02-28] MEDS: sennosides-docusate Tablet 1 TAB PO (08:25)
[2023-02-28] MEDS: losartan 50 mg Tablet 25 MG PO (08:25)
[2023-02-28] MEDS: amlodipine 10 mg Tablet PO (08:25)
[2023-02-28] MEDS: metoprolol tartrate 25 mg Tablet PO (08:26)
--- NOTE | 2023-02-28 09:49 | PM.DCS ---
Discharge Providers Date of Admission: 02/27/23 16:05 Date of Discharge: February 28, 2023 Attending Provider at Admission: Ananya Kaminski MD Attending Provider at Discharge: Ananya Kaminski MD Primary Care Provider: EVELYN Bennett Diagnoses at Discharge Discharge Diagnosis (1) Syncope: Status: Acute (2) Rhabdomyolysis: Status: Acute (3) Essential (primary) hypertension: Status: Chronic (4) Balance disorder: Status: Chronic (5) Claudication: Status: Chronic (6) Cigarette smoker: Status: Chronic Reason for Visit Reason for Visit: fall Hospital Course Hospital Course 82-year-old male who was admitted for management evaluation of fall, there is concern for syncopal event, TSH B12 normal, echo did not show any wall motion abnormality, preserved action fraction, patient experiencing productive cough, he remained afebrile, no leukocytosis, patient lives in a trailer, has a caregiver, does not use oxygen at baseline, gets meals from senior services. Stating that he does not have any family. He does have a walker at his trailer, physical therapy was requested, patient was able to participate very well. Mild muscle injury improved with IV fluid hydration. Creatinine seems around baseline 1.4-1.5. We will discontinue valsartan, will add amlodipine and metoprolol for hypertension, Lasix for grade 1 diastolic dysfunction Physical Exam Narrative: Nonfocal neuro exam Hemodynamically stable GCS 15 Eating breakfast Signs of dehydration improved S1, S2 Currently on room air Discharge Data Studies Completed and Pending Completed Studies During Hospitalization Category Date Time Status CT cervical spin wo con* [id number] Stat Cat Scan 02/27/23 12:[address] head wo con* [id number] Stat Cat Scan 02/27/23 12:[address] lumbar spine wo con* [id number] Stat Cat Scan 02/27/23 13:02 Completed XR chest 1V portable [id number] Stat Exams 02/27/23 12:28 Completed XR hand LT min 3V* [id number] Stat Exams 02/27/23 12:48 Completed XR pelvis 1-2V* [id number] Stat Exams 02/27/23 13:02 Completed CV. echo complete* [id number] Routine Ultrasound 02/27/23 19:23 Completed Laboratory Results WBC 8.73 10^3/uL (3.29-11.43) 02/28/23 04:43 RBC 3.83 10^6/uL (3.85-5.65) L 02/28/23 04:43 Hgb 12.70 g/dL (11.27-16.99) 02/28/23 04:43 Hct 39.7 % (37-53) 02/28/23 04:43 MCV 103.7 fl (82-101) H 02/28/23 04:43 MCH 33.2 pg (27-33) H 02/28/23 04:43 MCHC 32.0 g/dL (30-55) D 02/28/23 04:43 RDW 12.7 % (12.1-15.1) 02/28/23 04:43 Plt Count 210 10^3/cmm (157-399) 02/28/23 04:43 MPV 10.2 fL (7.4-10.4) 02/28/23 04:43 Neut % (Auto) 70.8 % 02/28/23 04:43 Lymph % (Auto) 15.6 % 02/28/23 04:43 [place] % (Auto) 8.6 % 02/28/23 04:43 Eos % (Auto) 4.1 % 02/28/23 04:43 Baso % (Auto) 0.6 % 02/28/23 04:43 Neut # (Auto) 6.18 10^3/uL (1.8-7.7) 02/28/23 04:43 Lymph # (Auto) 1.4 10^3/uL (0.8-4.8) 02/28/23 04:43 [place] # (Auto) 0.8 10^3/uL (0.2-0.9) 02/28/23 04:43 Eos # (Auto) 0.4 10^3/uL (0.0-0.8) 02/28/23 04:43 Baso # (Auto) 0.1 10^3/uL (0.0-0.1) 02/28/23 04:43 Nucleated RBC % (auto) 0 % 02/28/23 04:43 Nucleated RBCs # 0.0 /100WBC 02/28/23 04:43 D-Dimer 0.88 ug/mLFEU (0-0.59) H 02/27/23 13:55 Sodium 137 mmol/L (136-145) 02/28/23 04:43 Potassium 4.5 mmol/L (3.5-5.1) 02/28/23 04:43 Chloride 103 mmol/L (98-107) 02/28/23 04:43 Carbon Dioxide 23 mmol/L (22-29) 02/28/23 04:43 Anion Gap 15.5 (5-19) 02/28/23 04:43 BUN 24 mg/dL (8-23) H 02/28/23 04:43 Creatinine 1.5 mg/dL (0.7-1.2) H 02/28/23 04:43 GFR Calculation Not Reportable 02/28/23 04:43 Glucose 93 mg/dL (65-115) 02/28/23 04:43 Estimat Average Glucose 85 02/27/23 13:55 Hemoglobin A1c 4.6 % (4.0-6.0) 02/27/23 13:55 Calculated Osmolality 288 mOsm/kg (285-295) 02/28/23 04:43 Calcium 8.4 mg/dL (8.5-10.5) L 02/28/23 04:43 Phosphorus 2.8 mg/dL (2.5-4.5) 02/28/23 04:43 Magnesium 2.3 mg/dL (1.7-2.3) 02/28/23 04:43 Total Bilirubin 0.8 mg/dL (0.15-1.2) 02/27/23 13:55 AST 29 U/L (0-40) 02/27/23 13:55 ALT 13 U/L (0-41) 02/27/23 13:55 Alkaline Phosphatase 75 U/L (40-130) 02/27/23 13:55 Creatine Kinase 572 U/L (39-308) H* 02/28/23 04:43 Troponin T Baseline 22 ng/L (0-15) H 02/27/23 13:55 Troponin T 120 Minute 23.13 ng/L (0-15) H 02/27/23 17:38 Delta Troponin T 1.13 ABS# (0-10) 02/27/23 17:38 Total Protein 7.1 g/dL (6.6-8.7) 02/27/23 13:55 Albumin 4.4 g/dL (3.5-5.2) 02/27/23 13:55 Globulin 2.7 g/dL (1.3-4.6) 02/27/23 13:55 Lipase 25 U/L (13-60) 02/27/23 13:55 Vitamin B12 394 pg/mL (232-1245) 02/27/23 13:55 TSH 1.02 uIU/mL (0.27-4.20) 02/27/23 13:55 Urine Color Yellow (Yellow) 02/27/23 13:55 Urine Appearance Clear (CLEAR) 02/27/23 13:55 Urine pH 6 (5-7) 02/27/23 13:55 Ur Specific [place] 1.015 (1.005-1.030) 02/27/23 13:55 Urine Protein Trace (Negative) 02/27/23 13:55 Urine Glucose (UA) Norm (Normal) 02/27/23 13:55 Urine Ketones 1+ (Negative) H 02/27/23 13:55 Urine Blood Neg (Negative) 02/27/23 13:55 Urine Nitrate Negative (Negative) 02/27/23 13:55 Urine Bilirubin Neg (Negative) 02/27/23 13:55 Urine Urobilinogen Norm mg/dL (Negative) 02/27/23 13:55 Ur Leukocyte Esterase Negative (Negative) 02/27/23 13:55 Urine RBC Rare /hpf (0-2) 02/27/23 13:55 Urine WBC Rare /hpf (0-5) 02/27/23 13:55 Ur Squamous Epith Cells None /hpf (0-5) 02/27/23 13:55 Amorphous Sediment Not Reportable 02/27/23 13:55 Urine Bacteria Trace /hpf (NONE) 02/27/23 13:55 Urine Mucus None /hpf 02/27/23 13:55 Vitals Last Vital Signs Temp 97.8 F 02/28/23 08:17 Pulse 70 02/28/23 08:17 Resp 15 02/28/23 08:17 BP 160/72 02/28/23 08:25 Pulse Ox 97 02/28/23 08:17 O2 Del Method Room Air 02/28/23 08:17 Discharge Plan Discharge Patient Disposition: Home Condition: Stable Prescriptions: New amlodipine 10 mg Tablet 10 mg PO DAILY Qty: 30 2RF metoprolol tartrate 25 mg Tablet 25 mg PO BID@0900,2100 Qty: 60 2RF furosemide [Lasix] 20 mg tablet 20 mg PO DAILY Qty: 30 3RF potassium chloride 10 mEq tablet extended release 10 meq PO DAILY Qty: 30 2RF Rx Instructions: Only with Lasix Continued duloxetine [Cymbalta] 30 mg capsule,delayed release(DR/EC) 30 mg PO BID Qty: 60 5RF Anoro Ellipta 62.5-25 mcg/actuation blister with device 1 inh inhalation Q24H Qty: 60 5RF magnesium oxide 400 mg magnesium capsule 400 mg PO BID Qty: 60 5RF (DME) DME: Walker Unit See Rx Instructions .ROUTE .MEDSUPPLY Qty: 1 0RF Rx Instructions: Code E0143 and E0156 walker 4 wheels and seat Discontinued valsartan [Diovan] 80 mg tablet 80 mg PO DAILY Qty: 30 5RF Discharge Orders: Discharge Order (Routine); Ordered 02/28/23 Ordered By: Ananya Kaminski Referrals: Prem Lerma, SILK WASHING MACHINE OPERATOR-C [Primary Care Provider] - Patient Instructions: Opioid Safety Discharge Attestations Time Spent in Discharge Care*: greater than 30 min Quality Metrics Clinical Quality Measures [ No reported AMI, CVA or VTE this stay] Coding Level of Care Code Acute Code for Chg Fwd Diagnoses Syncope R55 Rhabdomyolysis M62.82 Essential (primary) hypertension I10 Balance disorder R26.89 Claudication I73.9 Cigarette smoker F17.210
--- NOTE | 2023-02-28 09:52 | PC.CHAP ---
Pastoral Care Encounter/Spiritual Assessment Type of Contact [] Declined gas meter checker visit [] Patient/Family/Request visit [] Outpatient visit [] Follow-up visit [] Physician referral [] Code/Alert [x] Routine visit [] Staff referral [] Actively dying [] Patient sleeping [] Family support [] [] Out of room [] Palliative care [] [x] Receiving care in room [] Pre-surgical visit [] Trauma [] Long length of stay [] ICU visit [] Other: Relational/Emotional Strength [x] Patient feels connected with others/family/visitors/staff [] Distress [] Loneliness/isolation [] Abandonment Spirituality of Patient [x] Person of Jovana [] Attends Yazdanism of their Jovana [x] Believes in Prayer [] Reads Bible or Advent materials [] There are Spiritual issues to be addressed Bonded Strand Operator Interventions [x] Prayer [x] Active listening [x] Non-anxious presence [x] Spiritual/emotional support [] Crisis/trauma care [x] Spiritual counseling [] Bereavement support [] Provided bereavement packet [] Provided Bible/devotional materials [] Provided toy/stuffed animal, coloring book to patient or family member [] Provided Communion [] Anointing/[place] [] Salvation [x] Completed spiritual assessment [] Other: Impact on Illness or Injury [] Angry [] Fearful [] Anxious [] Often cries [] Exhaustion [] Unable to work [] Unable to attend jehovah's witness [] Unable to walk/stand [] Unable to read [] Unable to drive [] Unable to eat/drink [] Unable to sleep [] Unable to be with family [] Patient intubated [] Other: Summary congestion well be under staff care before well be able to go home at some point Time spent with patient 10 mins
[2023-02-28 11:07] VITALS: BP 160/72; PULSE 70; RESP 15; TEMP 36.6; O2SAT 97
--- NOTE | 2023-02-28 11:09 | PC.NURSE ---
Discharge instructions provided to patient and his caregiver. NO questions or concerns at this time. Pt to private vehicle with all belongings via wheelchair
== END 2023-02-28 11:10 | disposition home or self-care (01) ==
LOC: ER 13:15 → MEDSURG 16:37
PROVIDERS: Admitting Provider Internal Medicine; Emergency Provider Family Medicine; PCP Nurse Practitioner; Visit Provider Internal Medicine
DX: R55 Syncope and collapse (principal); M62.82 Rhabdomyolysis; I10 Essential (primary) hypertension; R26.89 Other abnormalities of gait and mobility; I73.9 Peripheral vascular disease, unspecified; F17.210 Nicotine dependence, cigarettes, uncomplicated; Z91.81 History of falling; J44.9 Chronic obstructive pulmonary disease, unspecified
CPT/HCPCS: 36415; 70450; 71045; 72125; 72131; 72170; 73130; 80048; 80053; 81001; 82550; 82607; 83036; 83690; 83735; 84100; 84443; 84484; 85025; 85378; 93005; 93306; 96360; 96361; 97116; 97162; 99285; G0378; J7030

== ENCOUNTER → 2023-03-27 11:24 | Outpatient (BNVA) | payer MEDICAID, SELFPAY | PROVIDERS: PCP Nurse Practitioner; Visit Provider Nurse Practitioner | DX: M51.36 Other intervertebral disc degeneration, lumbar region (principal); J44.9 Chronic obstructive pulmonary disease, unspecified; M47.894 Other spondylosis, thoracic region; M47.896 Other spondylosis, lumbar region | CPT/HCPCS: 71046; 72072; 72100 ==

== ENCOUNTER → 2023-06-12 08:50 | Outpatient (BNVA) | payer MEDICAID, SELFPAY | PROVIDERS: PCP Nurse Practitioner; Visit Provider Anesthesiology Pain Medicine | DX: M51.17 Intervertebral disc disorders with radiculopathy, lumbosacral region (principal); M51.36 Other intervertebral disc degeneration, lumbar region; M51.16 Intervertebral disc disorders with radiculopathy, lumbar region | CPT/HCPCS: 99204 ==

== ENCOUNTER → 2023-07-03 13:49 | Outpatient (BNVA) | payer MEDICAID, SELFPAY | PROVIDERS: PCP Nurse Practitioner; Visit Provider Nurse Practitioner | DX: M51.16 Intervertebral disc disorders with radiculopathy, lumbar region (principal) | CPT/HCPCS: 80053; 80061; 85025 ==

== ENCOUNTER → 2023-07-25 09:29 | Outpatient (BNVA) | payer MEDICAID, SELFPAY | PROVIDERS: PCP Nurse Practitioner; Visit Provider Anesthesiology Pain Medicine | DX: M51.17 Intervertebral disc disorders with radiculopathy, lumbosacral region (principal); M51.36 Other intervertebral disc degeneration, lumbar region; M51.16 Intervertebral disc disorders with radiculopathy, lumbar region; M43.16 Spondylolisthesis, lumbar region; M48.061 Spinal stenosis, lumbar region without neurogenic claudication; M47.816 Spondylosis without myelopathy or radiculopathy, lumbar region | CPT/HCPCS: 99214 ==

== ENCOUNTER → 2023-12-11 11:11 | Outpatient (BNVA) | payer MEDICAID, SELFPAY | PROVIDERS: PCP Nurse Practitioner; Visit Provider Nurse Practitioner | DX: I10 Essential (primary) hypertension (principal); E55.9 Vitamin D deficiency, unspecified | CPT/HCPCS: 80053; 80061; 82306; 82607; 84443 ==

== ENCOUNTER → 2024-03-25 15:04 | Outpatient (BNVA) | payer MEDICAID, SELFPAY | PROVIDERS: PCP Nurse Practitioner; Visit Provider Nurse Practitioner | DX: E55.9 Vitamin D deficiency, unspecified (principal) | CPT/HCPCS: 80053; 82306 ==

== ENCOUNTER 2024-05-24 05:26 | Inpatient (IN) | payer MEDICAID, SELFPAY ==
[2024-05-24] VITALS (26 sets, daily range): BP systolic 106–153; BP diastolic 55–100; PULSE 78–102; RESP 16–24; TEMP 37.1–37.6; O2SAT 96–99; BMI 23.5
--- NOTE | 2024-05-24 07:22 | PC.NURSE ---
WAITING ROOM ROUNDED COMPLETED BY THIS NURSE @ 1922.
--- NOTE | 2024-05-24 08:07 | XRR_ITS ---
PROCEDURE INFORMATION: Exam: XR Chest Exam date and time: 05/24/2024 8:18 AM Age: 83 years old Clinical indication: Cough; Additional info: Weakness, cough TECHNIQUE: Imaging protocol: Radiologic exam of the chest. Views: 1 view. COMPARISON: CR XR chest 2V* [id number] 03/27/2023 11:27 AM FINDINGS: Lungs: There is unchanged mild apical scarring. No consolidating infiltrates. Pleural spaces: Unremarkable. No pleural effusion. No pneumothorax. Heart/Mediastinum: Unremarkable. No cardiomegaly. Bones/joints: Unremarkable. XR/XR chest 1V portable [id number] IMPRESSION: No acute abnormality
[2024-05-24 08:37] LABS: Basophils % 0.4 %; Eosinophils % 0.4 %; Hematocrit 36.9 % (37-53); Lymphocytes # 0.5 10^3/uL (0.8-4.8); Lymphocytes % 6.8 %; Mean Corpuscular Hemoglobin 32.2 pg (27-33); Mean Corpuscular Volume 100.5 fl (82-101); Mean Platelet Volume 10.7 fL (7.4-10.4); Monocytes # 0.6 10^3/uL (0.2-0.9); Monocytes % 8.2 %; Neutrophils # 5.82 10^3/uL (1.8-7.7); Neutrophils % 83.9 %; Nucleated Red Blood Cells % 0 %; Platelet Count 178 10^3/cmm (157-399); Red Blood Count 3.67 10^6/uL (3.85-5.65); Red Cell Distribution Width 12.7 % (12.1-15.1); White Blood Count 6.94 10^3/uL (3.29-11.43)
[2024-05-24 08:54] LABS: Troponin(5th) Baseline 12 ng/L (0-15)
[2024-05-24 08:57] LABS: Alanine Aminotransferase 9 U/L (0-41); Albumin Level 4.2 g/dL (3.5-5.2); Alkaline Phosphatase 100 U/L (40-130); Anion Gap 19.4 (5-19); Aspartate Amino Transferase 14 U/L (0-40); Blood Urea Nitrogen 21 mg/dL (8-23); Calcium 8.6 mg/dL (8.5-10.5); Carbon Dioxide 23 mmol/L (22-29); Chloride 99 mmol/L (98-107); Creatinine Clr Calc Pharmacy 32.2358; Globulin 2.6 g/dL (1.3-4.6); Glucose 99 mg/dL (65-115); Magnesium 2.1 mg/dL (1.7-2.3); Osmolality Calculated 287 mOsm/kg (285-295); Potassium 4.4 mmol/L (3.5-5.1); Sodium 137 mmol/L (136-145); Total Bilirubin 0.5 mg/dL (0.15-1.2); Total Protein 6.8 g/dL (6.6-8.7)
[2024-05-24 08:58] LABS: Lactic Sepsis W/Reflex 1.9 mmol/L (0.5-2.2)
--- NOTE | 2024-05-24 09:32 | ECG_ITS ---
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
[2024-05-24 10:05] LABS: Influenza A POSITIVE (Negative); Influenza B NEGATIVE (Negative); Respiratory Syncytial Virus Ce NEGATIVE (Negative); SARS-CoV-2 PCR NEGATIVE (Negative)
--- NOTE | 2024-05-24 10:42 | W.ED.EXTPRO ---
HPI - Extremity Problem General: Chief complaint: Extremity Problem,Nontraumatic Stated complaint: WEAKNESS Time Seen by Provider: 05/24/24 07:57 History of Present Illness: This patient is an 83-year-old presenting with complaints that his legs stopped working last night. He lives alone but does have home health that comes in daily to help him get around. He also has a history of a chronic cough. It has been worse but he is not really able to tell me how many days it has been worse. He was coughing fairly constantly with sputum production while I was in the room. He denies having a fever. He denies vomiting or diarrhea. He has pain in his chest only when he coughs. Reviewing his medication list it appears that he also has a history of COPD and is also on treatment for hyperlipidemia and hypertension. Related Data Home Medications ?Medication ?Instructions ?Recorded ?Confirmed aspirin 81 mg tablet,delayed 81 mg PO DAILY 12/31/23 05/24/24 release (Adult Low Dose Aspirin) Previous Rx's ?Medication ?Instructions ?Recorded DME: Walker #1 ea 12/11/23 atorvastatin 10 mg tablet 10 mg PO DAILY #30 tabs 03/25/24 duloxetine 60 mg capsule,delayed 60 mg PO BID #60 caps 03/25/24 release (Cymbalta) ergocalciferol (vitamin D2) 1,250 1,250 mcg PO .weekly #4 caps 03/25/24 mcg (50,000 unit) capsule gabapentin 100 mg capsule 100 mg PO BID pain #60 caps 03/25/24 magnesium oxide 400 mg PO BID #60 caps 03/25/24 metoprolol tartrate 25 mg tablet 25 mg PO BID@0900,2100 #60 tabs 03/25/24 umeclidinium 62.5 mcg-vilanterol 1 inh inhalation Q24H #60 ea 03/25/24 25 mcg/actuation powdr for inhalation (Anoro Ellipta) Allergies Allergy/AdvReac Type Severity Reaction Status Date / Time No Known Allergies Allergy Verified 05/24/24 05:39 FOR[facility]LY [facility], [facility]–1983 ED PFSH: Medical History Essential (primary) hypertension Rhabdomyolysis Syncope Balance disorder Claudication COPD (chronic obstructive pulmonary disease) DDD (degenerative disc disease), lumbar Cigarette smoker Daily consumption of alcohol Beer or whiskey stop 2016 Surgical History History of appendectomy History of cataract bilateral Family History Father Cancer Other Lung disease Denies family history of Anesthesia complication Social History Smoking and tobacco/nicotine status: current every day tobacco/nicotine user Alcohol intake: former Year of sobriety/quit date alcohol: 2017 Substance/Drug Use: unknown Adopted: No Caregiver/support person: No Lives independently: Yes Household members: none Housing: Manufactured/Mobile home Marital status: Single Highest education level completed: 10th Grade service: No Current occupational status: retired Do you think of yourself as: Straight/Heterosexual Current gender identity: Male Physical Exam Const: COMMON NORMALS: no acute distress and alert GENERAL APPEARANCE: cooperative ORIENTATION/CONSCIOUSNESS: Yes oriented to person, Yes oriented to place and Yes oriented to time OTHER: Edentulous, difficult to understand his speech. Thin and frail appearing. Tachypneic with constant cough. HENMT: HEAD & SCALP: normal to inspection FACE & SINUS: normal facial exam Eye: GENERAL EYE: appearance normal, both eyes and all related structures Neck/C-Spine: COMMON NORMALS: supple Chest: COMMONS NORMALS: normal inspection of the chest Resp: COMMON NORMALS: clear to auscultation bilaterally EFFORT & INSPECTION: Yes symmetric chest movement, Yes tachypneic and Yes Actively coughing productive AUSCULTATION: clear to auscultation bilaterally and diminished lung sounds Cardio: COMMON NORMALS: regular rhythm, S1 normal heart sound present, S2 normal heart sound present and Peripheral pulses 2+ throughout (1+ in bilateral lower extremities at the DP and PT pulse points) RATE: tachycardic RHYTHM: regular rhythm HEART SOUNDS: S1 normal heart sound present, S2 normal heart sound present and no murmurs PERIPHERAL PULSES: Peripheral pulses 2+ throughout (1+ in bilateral lower extremities at the DP and PT pulse points) GI: COMMON NORMALS: Normal to inspection, nondistended, normoactive bowel sounds present, Soft to palpation and non-tender INSPECTION: Yes normal to inspection AUSCULTATION: Yes normoactive bowel sounds PALPATION: Yes Soft to palpation Back/Pelvis: COMMON NORMALS: thoracic and lumbar spine normal to inspection Extremity: NARRATIVE EXTREMITY EXAM: Bilateral lower extremities with no edema. Cap refill is 2 to 3 seconds. Pulses are only +1 but are present bilaterally Neuro: SENSORIUM/ORIENTATION: Yes alert, Yes oriented to person, Yes oriented to place and Yes oriented to time SPEECH: Other neuro speech findings (Difficult to understand secondary to being edentulous) SENSORY EXAM: Yes extremities (Sensation to light touch is intact) MOTOR EXAM: 5/5 motor strength present throughout (Strength 4-1/2 out of 5 in the lower extremities ) DEEP TENDON REFLEXES: Right patellar reflex intensity grade: 2+ and Left patellar reflex intensity grade: 2+ Psych: COMMON NORMALS: mental status grossly normal, cooperative and normal affect Skin: COMMON NORMALS: no rashes or lesions noted and turgor normal GENERAL SKIN EXAM: no rashes or lesions noted and turgor normal Course Vital Signs: Vital signs: Vital Signs Temperature 98.7 F 05/24/24 05:33 Pulse Rate 92 05/24/24 13:00 Respiratory Rate 16 05/24/24 05:33 Blood Pressure 148/85 05/24/24 13:00 Pulse Oximetry 97 05/24/24 13:00 Oxygen Delivery Me thod Room Air 05/24/24 05:33 MDM - Extremity (Nontraumatic) Medical Decision Making Patient complains of leg weakness but he is able to move his legs well. On further questioning he admits to feeling generally weak. He does have worsening of his cough. He has baseline COPD. He has oxygen at home that he uses as needed. He denies cardiac history. A broad workup was done to look for possible causes of his acute onset of subjective weakness. There are no focal findings on neuroexam I do not believe this is a stroke. Flu a was positive. He is slightly dehydrated. He is also mildly anemic and has chronic kidney disease which appears to be stable. Troponin was negative. I will start Tamiflu and evaluate his ability to ambulate to see if he is able to go home. We will also have to find out exactly how much help he has at home. Although his oxygen saturations numbers appeared good the patient does have increased work of breathing, tachypnea. He continues to have a very wet productive cough. He was unable to get up and ambulate in the ED and as he lives alone he is not able to be discharged safely. He will be admitted for observation. I gave him Tamiflu in the ED. Lab Data 05/24/24 08:19 05/24/24 08:19 Radiology Impressions Chest X-Ray 05/24/24 08:07 IMPRESSION: No acute abnormality Laboratory Results WBC 6.94 10^3/uL (3.29-11.43) 05/24/24 08:19 RBC 3.67 10^6/uL (3.85-5.65) L 05/24/24 08:19 Hgb 11.80 g/dL (11.27-16.99) 05/24/24 08:19 Hct 36.9 % (37-53) L 05/24/24 08:19 MCV 100.5 fl (82-101) 05/24/24 08:19 MCH 32.2 pg (27-33) 05/24/24 08:19 MCHC 32.0 g/dL (30-55) 05/24/24 08:19 RDW 12.7 % (12.1-15.1) 05/24/24 08:19 Plt Count 178 10^3/cmm (157-399) 05/24/24 08:19 MPV 10.7 fL (7.4-10.4) H 05/24/24 08:19 Neut % (Auto) 83.9 % 05/24/24 08:19 Lymph % (Auto) 6.8 % 05/24/24 08:19 [place] % (Auto) 8.2 % 05/24/24 08:19 Eos % (Auto) 0.4 % 05/24/24 08:19 Baso % (Auto) 0.4 % 05/24/24 08:19 Neut # (Auto) 5.82 10^3/uL (1.8-7.7) 05/24/24 08:19 Lymph # (Auto) 0.5 10^3/uL (0.8-4.8) L 05/24/24 08:19 [place] # (Auto) 0.6 10^3/uL (0.2-0.9) 05/24/24 08:19 Eos # (Auto) 0.0 10^3/uL (0.0-0.8) 05/24/24 08:19 Baso # (Auto) 0.0 10^3/uL (0.0-0.1) 05/24/24 08:19 Nucleated RBC % (auto) 0 % 05/24/24 08:19 Nucleated RBCs # 0.0 /100WBC 05/24/24 08:19 Sodium 137 mmol/L (136-145) 05/24/24 08:19 Potassium 4.4 mmol/L (3.5-5.1) 05/24/24 08:19 Chloride 99 mmol/L (98-107) 05/24/24 08:19 Carbon Dioxide 23 mmol/L (22-29) 05/24/24 08:19 Anion Gap 19.4 (5-19) H 05/24/24 08:19 BUN 21 mg/dL (8-23) 05/24/24 08:19 Creatinine 1.7 mg/dL (0.7-1.2) H 05/24/24 08:19 GFR Calculation Not Reportable 05/24/24 08:19 Glucose 99 mg/dL (65-115) 05/24/24 08:19 Calculated Osmolality 287 mOsm/kg (285-295) 05/24/24 08:19 Lactic Acid 1.9 mmol/L (0.5-2.2) 05/24/24 08:19 Calcium 8.6 mg/dL (8.5-10.5) 05/24/24 08:19 Magnesium 2.1 mg/dL (1.7-2.3) 05/24/24 08:19 Total Bilirubin 0.5 mg/dL (0.15-1.2) 05/24/24 08:19 AST 14 U/L (0-40) 05/24/24 08:19 ALT 9 U/L (0-41) 05/24/24 08:19 Alkaline Phosphatase 100 U/L (40-130) 05/24/24 08:19 Troponin T Baseline 12 ng/L (0-15) 05/24/24 08:19 Troponin T 120 Minute 10.52 ng/L (0-15) 05/24/24 10:15 Delta Troponin T -1.48 ABS# (0-10) L 05/24/24 10:15 Total Protein 6.8 g/dL (6.6-8.7) 05/24/24 08:19 Albumin 4.2 g/dL (3.5-5.2) 05/24/24 08:19 Globulin 2.6 g/dL (1.3-4.6) 05/24/24 08:19 Urine Color Yellow (Yellow) 05/24/24 13:14 Urine Appearance Clear (CLEAR) 05/24/24 13:14 Urine pH 7.0 (5-7) 05/24/24 13:14 Ur Specific [place] 1.018 (1.005-1.030) 05/24/24 13:14 Urine Protein Trace (Negative) A 05/24/24 13:14 Urine Glucose (UA) Negative (Normal) 05/24/24 13:14 Urine Ketones Negative (Negative) 05/24/24 13:14 Urine Blood Negative (Negative) 05/24/24 13:14 Urine Nitrate Negative (Negative) 05/24/24 13:14 Urine Bilirubin Negative (Negative) 05/24/24 13:14 Urine Urobilinogen 0.2 mg/dL (Negative) 05/24/24 13:14 Ur Leukocyte Esterase Negative (Negative) 05/24/24 13:14 Urine RBC 0-2 /hpf (0-2) 05/24/24 13:14 Urine WBC 0-5 /hpf (0-5) 05/24/24 13:14 Ur Squamous Epith Cells 0-5 /hpf (0-5) 05/24/24 13:14 Amorphous Sediment Not Reportable 05/24/24 13:14 Urine Bacteria None seen /hpf (NONE) 05/24/24 13:14 Hyaline Casts 0.40 /lpf 05/24/24 13:14 Coronavirus (PCR) Negative (Negative) 05/24/24 09:20 Influenza A (PCR) Positive (Negative) 05/24/24 09:20 Influenza Type B (PCR) Negative (Negative) 05/24/24 09:20 RSV (PCR) Negative (Negative) 05/24/24 09:20 All radiology interpretation(s) finalized by discharge Discharge Plan Discharge Patient Disposition: Placed in Observation Admit Provider: Raya Hartman Clinical Impression: COPD (chronic obstructive pulmonary disease), Dyspnea on exertion, Generalized muscle weakness, Influenza A Condition: Stable Coding Level of Care Code ED Outpatient Physical Therapist Assistant for Chg Fwmar
[2024-05-24] MEDS: sodium chloride 0.9% 1,000 ML 999 ML IV (10:53)
[2024-05-24] MEDS: oseltamivir phosphate 75 mg Capsule PO (10:53)
[2024-05-24 11:09] LABS: Troponin 5 2HR 10.52 ng/L (0-15)
[2024-05-24 11:12] LABS: Troponin 5 2HR Delta -1.48 ABS# (0-10)
--- NOTE | 2024-05-24 11:19 | ECG_ITS ---
[facility]: [facility]24[facility] Pat Name: Scott Silva Department: Room: Gender: Male Medical Orderly: : 1940 Requested By: Regina Barnes Order Number: [id number] Reading MD: DOMO HAMILTON Measurements Intervals [place] Rate: 105 P: 64 CO: 153 QRS: 85 QRSD: 85 T: 79 QT: 344 QTc: 455 Interpretive Statements SINUS TACHYCARDIA POSSIBLE RIGHT VENTRICULAR CONDUCTION DELAY [RSR (QR) IN V1/V2] MODERATE ST DEPRESSION [0.05+ mV ST DEPRESSION] INTERPRETATION BASED ON A DEFAULT AGE OF 40 YEARS Compared to ECG 05/24/2024 09:32:37 ST (T wave) deviation now present Sinus rhythm no longer present Electronically Signed On 05-24-2024 21:06:28 DRUM SPRAYER by DOMO HAMILTON [email or web address] [id number]
[2024-05-24 13:31] LABS: Bilirubin Urine Negative (Negative); Blood Urine Negative (Negative); Glucose Urine UA Negative (Normal); Ketones Urine Negative (Negative); Leukocyte Esterase Urine Negative (Negative); Nitrate Urine Negative (Negative); Protein Urine Trace (Negative); Specific Gravity, Urine 1.018 (1.005-1.030); Urine Appearance Clear (CLEAR); Urine Color Yellow (Yellow); Urobilinogen Urine 0.2 mg/dL (Negative)
[2024-05-24 13:34] LABS: Add Urine Microscopic? YES; Bacteria Urine None Seen /hpf; RBC Urine 0-2 /hpf (0-2); Squamous Epithelial Cell Urine 0-5 /hpf (0-5); WBC Urine 0-5 /hpf (0-5)
[2024-05-24 17:40] LABS: ABG PCO2 31.7 mmHg (35-45); ABG PH Result 7.44 (7.35-7.45); Alveolar-Arterial Oxygen Gradi 5.7 mmHg (5-10); Arterial Blood Gas Hematocrit 34.5 % (42-52); Base Excess ABG -2.2 mmol/L (-2.0-2.0); Blood Gas Sample Type Arterial; HCO3 ABG 21.3 mmol/L (22-26); HGB O2 Sat 93.8 % (95-100); Ionized Calcium Level - ABG 1.1 mmol/L (1.1-1.4); Methemoglobin 1.1 % (0.4-1.5); Oxygen Saturation ABG 95.8; PO2 ABG 67.1 mmHg (80.0-100.0); Potassium Level - ABG 4.2 mmol/L (3.5-5.0); Total Hemoglobin 11.3 g/dL (14-18)
[2024-05-24 17:43] LABS: Blood Gas Operator Identificat AMH; Blood Gas Sample Site Brachial, left; Oxygen Device ROOM AIR; PO2 FiO2 Ratio Arterial Blood 319
--- NOTE | 2024-05-24 18:18 | CTR_ITS ---
PROCEDURE INFORMATION: Exam: CT Head Without Contrast Exam date and time: 05/24/2024 6:40 PM Age: 83 years old Clinical indication: Altered mental status/memory loss and speech disturbance; Slurred speech with lethargy; Additional info: Slurred speech, AMS TECHNIQUE: Imaging protocol: Computed tomography of the head without contrast. Radiation optimization: All CT scans at this facility use at least one of these dose optimization techniques: automated exposure control; mA and/or kV adjustment per patient size (includes targeted exams where dose is matched to clinical indication); or iterative reconstruction. COMPARISON: CT head wo con* [id number] 02/27/2023 1:10 PM RADIATION DOSE METRICS: Total DLP (mGy-cm): 1119.1 FINDINGS: Brain: Brain atrophy present. Periventricular white matter changes likely related to chronic ischemic small vessel disease. No intracranial mass, hemorrhage or recent infarct. Cerebral ventricles: Ventriculomegaly related to brain atrophy present. Paranasal sinuses: Visualized sinuses are unremarkable. No fluid levels. Mastoid air cells: Visualized mastoid air cells are well aerated. Bones: Unremarkable. No acute fracture. Soft tissues: Unremarkable. CT/CT head wo con* [id number] IMPRESSION: No acute intracranial abnormality.
--- NOTE | 2024-05-24 18:25 | PM.HP ---
Providers/Chief Complaint Admitting Physician: Raya Hartman MD Primary Care Provider: EVELYN Bennett Chief Complaint: WEAKNESS History of Present Illness Scott Silva is a 83 year old male brought to the ED via EMS with 3-5 days of feeling poorly, cough with expectoration, shornetness of breath. Not much history is aailable from the patient as he is lethargic and speech is slurred and difficult to understand. He coughs multiple times during interview. It appears he has an aide who comes in to care for him a few times a week. HE lives alone. He is unable to provide much history. Appears disheveled and dehydrated Review of Systems General: Reports: ROS unobtainable due to medical condition Medications/Allergies Home Medications ?Medication ?Instructions ?Recorded ?Confirmed ?Last Taken ?Type DME: Walker #1 ea 12/11/23 05/24/24 Unknown Rx aspirin 81 mg tablet,delayed 81 mg PO DAILY 12/31/23 05/24/24 Unknown History release (Adult Low Dose Aspirin) atorvastatin 10 mg tablet 10 mg PO DAILY #30 tabs 03/25/24 05/24/24 Unknown Rx duloxetine 60 mg capsule,delayed 60 mg PO BID #60 caps 03/25/24 05/24/24 Unknown Rx release (Cymbalta) ergocalciferol (vitamin D2) 1,250 1,250 mcg PO .weekly #4 caps 03/25/24 05/24/24 Unknown Rx mcg (50,000 unit) capsule gabapentin 100 mg capsule 100 mg PO BID pain #60 caps 03/25/24 05/24/24 Unknown Rx magnesium oxide 400 mg PO BID #60 caps 03/25/24 05/24/24 Unknown Rx metoprolol tartrate 25 mg tablet 25 mg PO BID@0900,2100 #60 tabs 03/25/24 05/24/24 Unknown Rx umeclidinium 62.5 mcg-vilanterol 1 inh inhalation Q24H #60 ea 03/25/24 05/24/24 Unknown Rx 25 mcg/actuation powdr for inhalation (Anoro Ellipta) Allergies Allergy/AdvReac Type Severity Reaction Status Date / Time No Known Allergies Allergy Verified 05/24/24 05:39 PFSH Acute PFSH: Medical History Essential (primary) hypertension Rhabdomyolysis Syncope Balance disorder Claudication COPD (chronic obstructive pulmonary disease) DDD (degenerative disc disease), lumbar Cigarette smoker Daily consumption of alcohol Beer or whiskey stop 2016 Surgical History History of appendectomy History of cataract bilateral Family History Father Cancer Other Lung disease Denies family history of Anesthesia complication Social History Smoking and tobacco/nicotine status: current every day tobacco/nicotine user Alcohol intake: former Year of sobriety/quit date alcohol: 2016 Substance/Drug Use: unknown Adopted: No Caregiver/support person: No Lives independently: Yes Household members: none Housing: Manufactured/Mobile home Marital status: Single Highest education level completed: 10th Grade service: No Current occupational status: retired Do you think of yourself as: Straight/Heterosexual Current gender identity: Male Vitals/I&O/Wt Last Vital Signs Temp 98.7 F 05/24/24 05:33 Pulse 92 05/24/24 13:30 Resp 16 05/24/24 05:33 BP 142/56 05/24/24 13:30 Pulse Ox 96 05/24/24 13:30 O2 Del Method Room Air 05/24/24 05:33 05/24/24 05/24/24 05/24/24 06:59 14:59 22:59 Intake Total 0 / 0 Balance 0 / 0 Weight last 48 hrs Weight 68.039 kg Physical Exam Narrative: General: No acute distress, AO x2, disheveled, slow to respond to questions HEENT: PERRLA, pupils bilaterally equal and reactive, pallors not present Chest: Normal vesicular breath sounds, no added sounds, equal good air entry bilaterally CVS: S1-S2 regular, no murmurs, no tachycardia, no gallops, no rubs Abdomen: Soft, nontender, no organomegaly, bowel sounds present Neuro: moving all extremities, follows commands and answers basic questions, however speech is slurred and he takes a long time to answer questions Data 05/25/24 06:01 05/25/24 06:01 ABG Interpretation 1: 05/24/24 17:30 ABG pH 7.44 ABG pCO2 31.7 L ABG pO2 67.1 L ABG HCO3 21.3 L ABG O2 Saturation 95.8 ABG Base Excess -2.2 L Other data: Radiology Impressions Chest X-Ray 05/24/24 08:07 IMPRESSION: No acute abnormality Laboratory Results WBC 5.20 10^3/uL (3.29-11.43) 05/25/24 06:01 RBC 3.21 10^6/uL (3.85-5.65) L 05/25/24 06:01 Hgb 10.50 g/dL (11.27-16.99) L 05/25/24 06:01 Hct 33.1 % (37-53) L 05/25/24 06:01 MCV 103.1 fl (82-101) H 05/25/24 06:01 MCH 32.7 pg (27-33) 05/25/24 06:01 MCHC 31.7 g/dL (30-55) 05/25/24 06:01 RDW 13.0 % (12.1-15.1) 05/25/24 06:01 Plt Count 143 10^3/cmm (157-399) L 05/25/24 06:01 MPV 10.7 fL (7.4-10.4) H 05/25/24 06:01 Neut % (Auto) 77.6 % 05/25/24 06:01 Lymph % (Auto) 10.6 % 05/25/24 06:01 [place] % (Auto) 10.8 % 05/25/24 06:01 Eos % (Auto) 0.0 % 05/25/24 06:01 Baso % (Auto) 0.6 % 05/25/24 06:01 Neut # (Auto) 4.04 10^3/uL (1.8-7.7) 05/25/24 06:01 Lymph # (Auto) 0.6 10^3/uL (0.8-4.8) L 05/25/24 06:01 [place] # (Auto) 0.6 10^3/uL (0.2-0.9) 05/25/24 06:01 Eos # (Auto) 0.0 10^3/uL (0.0-0.8) 05/25/24 06:01 Baso # (Auto) 0.0 10^3/uL (0.0-0.1) 05/25/24 06:01 Nucleated RBC % (auto) 0 % 05/25/24 06:01 Nucleated RBCs # 0.0 /100WBC 05/25/24 06:01 D-Dimer 0.83 ug/mLFEU (0-0.59) H 05/24/24 08:19 Specimen Type Arterial 05/24/24 17:30 Sample Site Brachial, left 05/24/24 17:30 ABG pH 7.44 (7.35-7.45) 05/24/24 17:30 ABG pCO2 31.7 mmHg (35-45) L 05/24/24 17:30 ABG pO2 67.1 mmHg (80.0-100.0) L 05/24/24 17:30 ABG PO2/FiO2 Ratio 319 05/24/24 17:30 ABG HCO3 21.3 mmol/L (22-26) L 05/24/24 17:30 ABG O2 Saturation 95.8 05/24/24 17:30 ABG Base Excess -2.2 mmol/L (-2.0-2.0) L 05/24/24 17:30 Manuel Test N/a 05/24/24 17:30 A-a O2 Gradient 5.7 mmHg (5-10) 05/24/24 17:30 Hematocrit 34.5 % (42-52) L 05/24/24 17:30 Hgb O2 Saturation 93.8 % (95-100) L 05/24/24 17:30 Carboxyhemoglobin 1.0 %THgb (0.4-20.1) 05/24/24 17:30 Methemoglobin 1.1 % (0.4-1.5) 05/24/24 17:30 Total Hemoglobin 11.3 g/dL (14-18) L 05/24/24 17:30 Sodium 134.0 mmol/L (131-143) 05/24/24 17:30 Potassium 4.2 mmol/L (3.5-5.0) 05/24/24 17:30 Glucose 97.0 mg/dL (70-115) 05/24/24 17:30 Ionized Calcium 1.1 mmol/L (1.1-1.4) 05/24/24 17:30 O2 Delivery Device Room air 05/24/24 17:30 FiO2 21.0 % 05/24/24 17:30 Drugless Physician ID Amh 05/24/24 17:30 Sodium 137 mmol/L (136-145) 05/25/24 06:01 Potassium 4.1 mmol/L (3.5-5.1) 05/25/24 06:01 Chloride 104 mmol/L (98-107) 05/25/24 06:01 Carbon Dioxide 21 mmol/L (22-29) L 05/25/24 06:01 Anion Gap 16.1 (5-19) 05/25/24 06:01 BUN 20 mg/dL (8-23) 05/25/24 06:01 Creatinine 1.6 mg/dL (0.7-1.2) H 05/25/24 06:01 GFR Calculation Not Reportable 05/25/24 06:01 Glucose 114 mg/dL (65-115) 05/25/24 06:01 POC Glucose 104 mg/dL (70-110) 05/24/24 21:16 Calculated Osmolality 287 mOsm/kg (285-295) 05/25/24 06:01 Lactic Acid 1.9 mmol/L (0.5-2.2) 05/24/24 08:19 Calcium 7.9 mg/dL (8.5-10.5) L 05/25/24 06:01 Magnesium 2.1 mg/dL (1.7-2.3) 05/24/24 08:19 Total Bilirubin 0.4 mg/dL (0.15-1.2) 05/25/24 06:01 AST 17 U/L (0-40) 05/25/24 06:01 ALT 8 U/L (0-41) 05/25/24 06:01 Alkaline Phosphatase 71 U/L (40-130) 05/25/24 06:01 Troponin T Baseline 12 ng/L (0-15) 05/24/24 08:19 Troponin T 120 Minute 10.52 ng/L (0-15) 05/24/24 10:15 Delta Troponin T -1.48 ABS# (0-10) L 05/24/24 10:15 Troponin T Hi Sens 6Hr 12.80 ng/L (0-15) 05/24/24 17:04 Troponin T Hi Sens 6Hr Delta 0.80 ng/L (0-12) 05/24/24 17:04 Total Protein 5.8 g/dL (6.6-8.7) L 05/25/24 06:01 Albumin 3.5 g/dL (3.5-5.2) 05/25/24 06:01 Globulin 2.3 g/dL (1.3-4.6) 05/25/24 06:01 TSH 1.48 uIU/mL (0.27-4.20) 05/24/24 08:19 Urine Color Yellow (Yellow) 05/24/24 13:14 Urine Appearance Clear (CLEAR) 05/24/24 13:14 Urine pH 7.0 (5-7) 05/24/24 13:14 Ur Specific [place] 1.018 (1.005-1.030) 05/24/24 13:14 Urine Protein Trace (Negative) A 05/24/24 13:14 Urine Glucose (UA) Negative (Normal) 05/24/24 13:14 Urine Ketones Negative (Negative) 05/24/24 13:14 Urine Blood Negative (Negative) 05/24/24 13:14 Urine Nitrate Negative (Negative) 05/24/24 13:14 Urine Bilirubin Negative (Negative) 05/24/24 13:14 Urine Urobilinogen 0.2 mg/dL (Negative) 05/24/24 13:14 Ur Leukocyte Esterase Negative (Negative) 05/24/24 13:14 Urine RBC 0-2 /hpf (0-2) 05/24/24 13:14 Urine WBC 0-5 /hpf (0-5) 05/24/24 13:14 Ur Squamous Epith Cells 0-5 /hpf (0-5) 05/24/24 13:14 Amorphous Sediment Not Reportable 05/24/24 13:14 Urine Bacteria None seen /hpf (NONE) 05/24/24 13:14 Hyaline Casts 0.40 /lpf 05/24/24 13:14 Coronavirus (PCR) Negative (Negative) 05/24/24 09:20 Influenza A (PCR) Positive (Negative) 05/24/24 09:20 Influenza Type B (PCR) Negative (Negative) 05/24/24 09:20 RSV (PCR) Negative (Negative) 05/24/24 09:20 A&P Assessment and plan (1) Influenza A: influenza A + start Tamiflu 75mg BID (2) COPD exacerbation: Mild COPD exacerbation triggered by acute viral illness. Patient has some coarse crackles which clear after a bout of cough, giancarlo post tussive clearing Start duoneb and budesonide scheduled inhalation Holding off on steroids for now No obvious consolidation on CXR Azithromycin 500mg po daily Potentially may have aspirated given his altered mentation , place on dysphagia diet until more alert (3) Altered mental state: appears lethargic, slow to respond , speech appears slurred, unknown baseline Lives alone reportedly with aide checking in on him ABG requested, reveiwed- no signs of hypoxia or hypercapnea on ABG check CT head to evaluate for stroke (4) Dehydration: clinically dehydrated, disheveled D5NS @ 75 cc/hr , watch for signs of fluid overload Plan Incidentally noted blood at urethral meatus : likely from traumatic straight cath, patient has voided clear urine afterwards, monitor for now DVT ppx: heparin 5000 q12h Full code PDMP PDMP Reviewed: Not Reviewed Attestations Medical Necessity Statement*: less than 2 midnight stay currently anticipated Coding Level of Care Code Acute Code for [facility] Fwd Diagnoses Influenza A J10.1 COPD exacerbation J44.1 Altered mental state R41.82 Dehydration E86.0
[2024-05-24 18:41] LABS: D Dimer 0.83 ug/mLFEU (0-0.59)
[2024-05-24 18:51] LABS: Thyroid Stimulating Hormone 1.48 uIU/mL (0.27-4.20)
[2024-05-24] MEDS: dextrose 5%-sod chloride 0.9% 1,000 ML 75 ML IV (21:01)
[2024-05-24] MEDS: heparin 5,000 unit/mL INJ 1 mL 5000 UNIT SUBCUT (21:02)
[2024-05-24 21:30] LABS: Glucose Point of Care 104 mg/dL (70-110)
[2024-05-25] VITALS (12 sets, daily range): BP systolic 126–167; BP diastolic 55–73; PULSE 72–84; RESP 18–19; TEMP 37–37.7; O2SAT 95–98
[2024-05-25] MEDS: ipratropium-albuterol 3 mL Neb INHALATION ×3 (02:43→21:00)
[2024-05-25] MEDS: benzonatate 100 mg Capsule PO (06:04)
[2024-05-25] MEDS: acetaminophen 325 mg Tablet 650 MG PO (06:04)
[2024-05-25 06:31] LABS: Basophils % 0.6 %; Hematocrit 33.1 % (37-53); Lymphocytes # 0.6 10^3/uL (0.8-4.8); Lymphocytes % 10.6 %; Mean Corpuscular HGB Conc 31.7 g/dL (30-55); Mean Corpuscular Hemoglobin 32.7 pg (27-33); Mean Corpuscular Volume 103.1 fl (82-101); Mean Platelet Volume 10.7 fL (7.4-10.4); Monocytes # 0.6 10^3/uL (0.2-0.9); Monocytes % 10.8 %; Neutrophils # 4.04 10^3/uL (1.8-7.7); Neutrophils % 77.6 %; Nucleated Red Blood Cells % 0 %; Platelet Count 143 10^3/cmm (157-399); Red Blood Count 3.21 10^6/uL (3.85-5.65)
[2024-05-25 06:54] LABS: Alanine Aminotransferase 8 U/L (0-41); Albumin Level 3.5 g/dL (3.5-5.2); Alkaline Phosphatase 71 U/L (40-130); Anion Gap 16.1 (5-19); Aspartate Amino Transferase 17 U/L (0-40); Blood Urea Nitrogen 20 mg/dL (8-23); Calcium 7.9 mg/dL (8.5-10.5); Carbon Dioxide 21 mmol/L (22-29); Chloride 104 mmol/L (98-107); Creatinine Clr Calc Pharmacy 33.9531; Globulin 2.3 g/dL (1.3-4.6); Glucose 114 mg/dL (65-115); Osmolality Calculated 287 mOsm/kg (285-295); Potassium 4.1 mmol/L (3.5-5.1); Sodium 137 mmol/L (136-145); Total Bilirubin 0.4 mg/dL (0.15-1.2); Total Protein 5.8 g/dL (6.6-8.7)
[2024-05-25] MEDS: budesonide 0.5 mg/2 mL Neb INHALATION ×2 (07:34→21:00)
[2024-05-25] MEDS: dextrose 5%-sod chloride 0.9% 1,000 ML 75 ML IV ×2 (08:24→22:17)
[2024-05-25] MEDS: duloxetine 60 mg Capsule PO ×2 (08:25→17:15)
[2024-05-25] MEDS: atorvastatin 40 mg Tablet 10 MG PO (08:25)
[2024-05-25] MEDS: metoprolol tartrate 25 mg Tablet PO ×2 (08:25→20:30)
[2024-05-25] MEDS: aspirin 81 mg EC Tablet PO (08:25)
[2024-05-25] MEDS: heparin 5,000 unit/mL INJ 1 mL 5000 UNIT SUBCUT ×2 (08:25→20:29)
[2024-05-25] MEDS: pantoprazole DR 40 mg Tablet PO (08:25)
[2024-05-25] MEDS: oseltamivir phosphate 75 mg Capsule PO ×2 (09:31→17:15)
--- NOTE | 2024-05-25 10:00 | PC.CHAP ---
Pastoral Care Encounter/Spiritual Assessment Type of Contact [] Declined primary teacher visit [] Patient/Family/Request visit [] Outpatient visit [] Follow-up visit [] Physician referral [] Code/Alert [x] Routine visit [] Staff referral [] Actively dying [] Patient sleeping [] Family support [] [] Out of room [] Palliative care [] [] Receiving care in room [] Pre-surgical visit [] Trauma [] Long length of stay [] ICU visit [] Other: Relational/Emotional Strength [] Patient feels connected with others/family/visitors/staff [] Distress [] Loneliness/isolation [] Abandonment Spirituality of Patient [x] Person of Jovana [] Attends Jehovah'S Witness of their Jovana [x] Believes in Prayer [] Reads Bible or Restorationist materials [] There are Spiritual issues to be addressed Paper Cone Maker Interventions [x] Prayer [x] Active listening [] Non-anxious presence [] Spiritual/emotional support [] Crisis/trauma care [] Spiritual counseling [] Bereavement support [] Provided bereavement packet [x] Provided Bible/devotional materials [] Provided toy/stuffed animal, coloring book to patient or family member [] Provided Communion [] Anointing/Independence [] Salvation [x] Completed spiritual assessment [] Other: Impact on Illness or Injury [] Angry [] Fearful [] Anxious [] Often cries [] Exhaustion [] Unable to work [] Unable to attend advent [] Unable to walk/stand [] Unable to read [] Unable to drive [] Unable to eat/drink [] Unable to sleep [] Unable to be with family [] Patient intubated [] Other: Summary Time spent with patient 10 min
--- NOTE | 2024-05-25 10:02 | PC.CHAP ---
Pastoral Care Encounter/Spiritual Assessment Type of Contact [] Declined ham curer visit [] Patient/Family/Request visit [] Outpatient visit [] Follow-up visit [] Physician referral [] Code/Alert [x] Routine visit [] Staff referral [] Actively dying [] Patient sleeping [] Family support [] [] Out of room [] Palliative care [] [] Receiving care in room [] Pre-surgical visit [] Trauma [] Long length of stay [] ICU visit [] Other: Relational/Emotional Strength [] Patient feels connected with others/family/visitors/staff [] Distress [] Loneliness/isolation [] Abandonment Spirituality of Patient [] Person of Jovana [] Attends Scientologist of their Jovana [] Believes in Prayer [] Reads Bible or Congregation materials [] There are Spiritual issues to be addressed Beveling [employer] Edging Machine Operator Interventions [] Prayer [] Active listening [] Non-anxious presence [] Spiritual/emotional support [] Crisis/trauma care [] Spiritual counseling [] Bereavement support [] Provided bereavement packet [] Provided Bible/devotional materials [] Provided toy/stuffed animal, coloring book to patient or family member [] Provided Communion [] Anointing/[place] [] Salvation [] Completed spiritual assessment [] Other: Impact on Illness or Injury [] Angry [] Fearful [] Anxious [] Often cries [] Exhaustion [] Unable to work [] Unable to attend hindu [] Unable to walk/stand [] Unable to read [] Unable to drive [] Unable to eat/drink [] Unable to sleep [] Unable to be with family [] Patient intubated [] Other: Summary precaution Time spent with patient
--- NOTE | 2024-05-25 12:40 | P.PN_ITS ---
Subjective 2 Subjective: Nursing staff spoke to patient's caregiver at home who is currently out with the flu. She states that patient was recently noticed with early dementia. His mental status at this time may be baseline?. He called ambulance himself yesterday. He does have a nurse who comes home once a week and a caregiver who comes to his house 4 hours a day. Hemoglobin 10.5 this morning. Patient able to tell me his name and the fact that he is in [facility] he also knows his date of . Unable to provide any more history. I asked him if he wanted to go home and he does not respond to that. He appears to be dehydrated and weak. Vitals/I&O/Wt Last Vital Signs Temp 98.6 F 05/25/24 08:00 Pulse 84 05/25/24 08:00 Resp 18 05/25/24 08:00 BP 126/60 05/25/24 08:00 Pulse Ox 96 05/25/24 08:00 O2 Del Method Room Air 05/25/24 08:00 O2 Flow Rate 0 05/25/24 08:00 05/24/24 05/25/24 05/25/24 22:59 06:59 14:59 Intake Total 1000 / 1000 150 / 1150 973.75 / 973.75 Balance 1000 / 1000 150 / 1150 973.75 / 973.75 Weight last 48 hrs Weight 66.587 kg Weight 66.791 kg Weight 68.039 kg Physical Exam 2 Narrative: General: No acute distress, AO x2, disheveled, slow to respond to questions however does follow commands and answer some but not all questions. HEENT: PERRLA, pupils bilaterally equal and reactive, pallors not present Chest: Normal vesicular breath sounds, no added sounds, equal good air entry bilaterally CVS: S1-S2 regular, no murmurs, no tachycardia, no gallops, no rubs Abdomen: Soft, nontender, no organomegaly, bowel sounds present Neuro: moving all extremities, follows commands and answers basic questions, I do not believe speech is very slurred at this time. Data 05/25/24 06:01 05/25/24 06:01 A&P Assessment and plan (1) Influenza A: influenza A + start Tamiflu 75mg BID (2) COPD exacerbation: Mild COPD exacerbation triggered by acute viral illness. Patient has some coarse crackles which clear after a bout of cough, mary ellenley post tussive clearing Start duoneb and budesonide scheduled inhalation Holding off on steroids for now No obvious consolidation on CXR Azithromycin 500mg po daily Potentially may have aspirated given his altered mentation , place on dysphagia diet until more alert (3) Altered mental state: appears lethargic, slow to respond , speech appears slurred, unknown baseline Lives alone reportedly with aide checking in on him ABG requested, reveiwed- no signs of hypoxia or hypercapnea on ABG check CT head to evaluate for stroke (4) Dehydration: clinically dehydrated, disheveled D5NS @ 75 cc/hr , watch for signs of fluid overload Plan Incidentally noted blood at urethral meatus : likely from traumatic straight cath, patient has voided clear urine afterwards, monitor for now DVT ppx: heparin 5000 q12h Full code 05/25/2024 CT head negative for stroke. Lives alone at home. Order occupational therapy assessment today. There is a report of patient getting diagnosed with dementia recently. We will have to assess if he is safe to go home alone at this time. Caregiver is not present 05/11. Check speech therapy evaluation. ? I will check MRI brain Continue normal saline 75 cc/h. Creatinine 1.6 which is at his baseline. PDMP PDMP Reviewed: Not Reviewed Attestations 2 Medical Necessity Statement*: Patient does have mild encephalopathy. Will need to assess if he is safe to go home alone. Requires continued hospitalization. Diagnoses Influenza A J10.1 COPD exacerbation J44.1 Altered mental state R41.82 Dehydration E86.0
--- NOTE | 2024-05-25 12:44 | MR_ITS ---
WS: [id number] MRI BRAIN WITHOUT CONTRAST HISTORY: r/o stroke COMPARISON: Prior MRI 10/28/2020, head CT 05/24/2024 TECHNIQUE: Diffusion imaging, multiplanar T1, T2 and FLAIR imaging obtained. Acute lacunar infarct in the RIGHT svetlana. No additional diffusion abnormalities. No hemosiderin or hemorrhage. Moderate volume loss is symmetric. There is extensive confluent T2 and FLAIR signal hyperintensities throughout the white matter. Ventricles are markedly dilated. No midline shift. Ventriculomegaly has progressed since 2020. No inferior displacement of cerebellar tonsils. The sella turcica and pituitary gland are unremarkable. Dural venous sinuses and [place] of [place] demonstrate no abnormality on this unenhanced studies. Paranasal sinuses: Clear. Mastoid air cells: Normal. Calvarium and scalp: Intact. MR/MR head wo con* [id number] IMPRESSION: 1. Acute RIGHT pontine, nonhemorrhagic infarct. 2. No hemorrhage. 3. Extensive chronic white matter disease. 4. Ventriculomegaly with mild progression since 2020. May be related to atroph y or normal pressure hydrocephalus.
--- NOTE | 2024-05-25 13:08 | PC.NURSE ---
This nurse contacts Priscilla (caregiver) to complete MRI questionaire. Priscilla does not have a medical history for pt. Pt unable to answer questions. Dr. Desouza advised.
--- NOTE | 2024-05-25 13:16 | XR_ITS ---
WS: [id number] XR KUB portable [id number] REASON FOR EXAM: R/O metal for MRI FINDINGS: Unremarkable bowel gas pattern. No free air or retroperitoneal air. Moderate degenerative spondylosis in the lumbar spine. No mass, organomegaly, or urinary tract calcification. No metallic density identified in the abdomen. No metallic density seen in the abdominal instant print operator view from a CT of the lumbar spine 02/27/2023. Patient had previous MRI of the brain 10/28/2020. XR/XR KUB portable [id number] IMPRESSION: No metallic contraindication for MRI as above.
[2024-05-25] MEDS: azithromycin 250 mg Tablet 500 MG PO (17:15)
--- NOTE | 2024-05-25 21:17 | USCV_ITS ---
Scott Silva Age: 83 Gender: M : 1940 Exam Date: 05/25/2024 21:34 Ordering Phys: Corrie Desouza MD Technologist: CELESTINO Exam Location: [facility] [place] Indication: stroke, slurred speech, SOB, history of COPD, HTN, HL BP: 167 / 73 HR: 75 Rhythm: Sinus Technical Quality: Adequate MEASUREMENTS (Male / Female) Normal Values 2D ECHO LV Diastolic Diameter PLAX 4.7 cm 4.2 - 5.9 / 3.9 - 5.3 cm IVS Diastolic Thickness 1.1 cm 0.6 - 1.0 / 0.6 - 0.9 cm IVS Systolic Thickness 1.5 cm LVPW Diastolic Thickness 1.0 cm 0.6 - 1.0 / 0.6 - 0.9 cm LVPW Systolic Thickness 1.3 cm LVOT Diameter 1.8 cm LV Ejection Fraction 2D Teich 67.5 % LV Ejection Fraction MOD 4C 67.7 % LV Ejection Fraction MOD 2C 67.7 % LV Ejection Fraction 2C AL 70.7 % LA Diameter 2.6 cm Aorta at Sinotubular Diameter 2.7 cm IVC Diameter 1.6 cm M-MODE LA Ao Ratio MM 1.4 AV Cusp Separation MM 1.6 cm DOPPLER AV Peak Velocity 140.0 cm/s LVOT Peak Velocity 76.0 cm/s AV Area Cont Eq vti 1.5 cm squared AV Area Cont Eq pk 1.4 cm squared MV Peak Velocity 93.0 cm/s MV Area PHT 4.1 cm squared Mitral E to A Ratio 1.1 TV Peak E Velocity 38.0 cm/s PV Peak Velocity 150.0 cm/s FINDINGS Left Ventricle Possibly normal size and ejection fraction. Right Ventricle Possibly normal size and ejection fraction. Right Atrium Possibly of normal size Left Atrium Possibly of normal size Mitral Valve Moderate mitral annular calcification. Aortic Valve No gross abnormalities noted Tricuspid Valve Thickened tricuspid valve. Pulmonic Valve No gross abnormalities noted Pericardium No pericardial effusion. Aorta Normal aortic annulus size. IVC Normal inferior vena cava. CONCLUSIONS Technically difficult study since only because of poor ultrasonic window. Only subcostal views were obtained. Possibly normal LV size and ejection fraction-around 60% Thickened tricuspid valve. Moderate mitral annular calcification. Cannot evaluate for intracardiac masses, consider DUNCAN, if clinically indicated There is no pericardial effusion. Comparison with the previous study is difficult because of the difference in the technical quality. Dr Jenniffer Goldstein MD [facility] (Electronically Signed) Final Date: 26 May 2024 09:03 S
[2024-05-26] VITALS (13 sets, daily range): BP systolic 149–184; BP diastolic 67–79; PULSE 67–84; RESP 16–20; TEMP 36.4–36.8; O2SAT 94–99
[2024-05-26] MEDS: ipratropium-albuterol 3 mL Neb INHALATION ×3 (01:01→14:05)
[2024-05-26 06:20] LABS: Basophils % 0.2 %; Hematocrit 33.2 % (37-53); Lymphocytes # 0.8 10^3/uL (0.8-4.8); Lymphocytes % 11.9 %; Mean Corpuscular HGB Conc 31.6 g/dL (30-55); Mean Corpuscular Hemoglobin 32.4 pg (27-33); Mean Corpuscular Volume 102.5 fl (82-101); Mean Platelet Volume 10.8 fL (7.4-10.4); Monocytes # 0.5 10^3/uL (0.2-0.9); Monocytes % 7.1 %; Neutrophils % 80.5 %; Nucleated Red Blood Cells % 0 %; Platelet Count 137 10^3/cmm (157-399); Red Blood Count 3.24 10^6/uL (3.85-5.65); Red Cell Distribution Width 12.8 % (12.1-15.1); White Blood Count 6.46 10^3/uL (3.29-11.43)
[2024-05-26 06:39] LABS: Anion Gap 16.4 (5-19); Blood Urea Nitrogen 17 mg/dL (8-23); Calcium 7.8 mg/dL (8.5-10.5); Carbon Dioxide 22 mmol/L (22-29); Chloride 103 mmol/L (98-107); Creatinine Clr Calc Pharmacy 36.9897; Glucose 100 mg/dL (65-115); Magnesium 1.9 mg/dL (1.7-2.3); Osmolality Calculated 288 mOsm/kg (285-295); Potassium 3.4 mmol/L (3.5-5.1); Sodium 138 mmol/L (136-145)
[2024-05-26] MEDS: potassium chloride ER 20 mEq Tablet 40 MEQ PO (08:04)
[2024-05-26] MEDS: oseltamivir phosphate 75 mg Capsule PO (08:05)
[2024-05-26] MEDS: pantoprazole DR 40 mg Tablet PO (08:05)
[2024-05-26] MEDS: atorvastatin 40 mg Tablet 80 MG PO (08:05)
[2024-05-26] MEDS: aspirin 81 mg EC Tablet PO (08:05)
[2024-05-26] MEDS: clopidogrel 75 mg Tablet PO (08:05)
[2024-05-26] MEDS: metoprolol tartrate 25 mg Tablet PO ×2 (08:05→20:25)
[2024-05-26] MEDS: heparin 5,000 unit/mL INJ 1 mL 5000 UNIT SUBCUT ×3 (08:06→20:24)
[2024-05-26] MEDS: duloxetine 60 mg Capsule PO ×2 (08:06→16:53)
--- NOTE | 2024-05-26 10:34 | PC.NURSE ---
pt unable to void. 350 residual observed with bladder scan. Dr. Desouza advised and new order received for [facility]
[2024-05-26] MEDS: dextrose 5%-sod chloride 0.9% 1,000 ML 75 ML IV (10:45)
--- NOTE | 2024-05-26 11:15 | P.PN_ITS ---
Documented by User: Lars Rey 05/26/24 11:47 Subjective 2 Subjective: Patient was seen this morning. No acute overnight events. Patient is in bed and eating breakfast this morning. He states he is able to tolerate food okay but feels and appears weak. He is aware of his name and where is at right now. He states that he is at the hospital in [place]. He does have slight slurring in his speech but states that overall he feels better this morning. Denies cough, SOB, N/V/D this morning. Vitals/I&O/Wt Last Vital Signs Temp 98.3 F 05/26/24 07:54 Pulse 69 05/26/24 09:16 Resp 18 05/26/24 09:16 BP 157/72 05/26/24 07:54 Pulse Ox 99 05/26/24 09:16 O2 Del Method Room Air 05/26/24 09:16 O2 Flow Rate 0 05/26/24 08:00 05/25/24 05/26/24 05/26/24 22:59 06:59 14:59 Intake Total 1240 / 2213.75 150 / 2363.75 1235 / 1235 Output Total 300 / 300 Balance 1240 / 2213.75 -150 / 2063.75 1235 / 1235 Weight last 48 hrs Weight 70.125 kg Weight 66.587 kg Weight 66.791 kg Physical Exam 2 Chest: COMMONS NORMALS: normal inspection of the chest Resp: COMMON NORMALS: normal respiratory effort and clear to auscultation bilaterally AUSCULTATION: clear to auscultation bilaterally Cardio: COMMON NORMALS: regular rate, regular rhythm, S1 normal heart sound present and S2 normal heart sound present RATE: regular rate RHYTHM: r egular rhythm HEART SOUNDS: S1 normal heart sound present and S2 normal heart sound present GI: COMMON NORMALS: Normal to inspection, nondistended, normoactive bowel sounds present Urinary Catheter Management: Parrish: Cath Placed During This Visit: yes Urinary Catheter Date of Insertion: 05/26/24 Urinary Catheter Time of Insertion: 10:58 Data 05/26/24 05:50 05/26/24 05:50 A&P Assessment and plan (1) Essential (primary) hypertension: (2) Influenza A: (3) Generalized muscle weakness: (4) Lumbar disc disease with radiculopathy: (5) DDD (degenerative disc disease), lumbar: Qualifiers: Disc-related pain type: discogenic back pain and lower extremity pain Q ualified Code(s): M51.362 - Other intervertebral disc degeneration, lumbar region with discogenic back pain and lower extremity pain (6) COPD (chronic obstructive pulmonary disease): (7) Altered mental state: Plan (1) Influenza A: influenza A + started Tamiflu 75mg BID (2) COPD exacerbation: Mild COPD exacerbation triggered by acute viral illness. Patient has some coarse crackles which clear after a bout of cough, likley post tussive clearing Start duoneb and budesonide scheduled inhalation Holding off on steroids for now No obvious consolidation on CXR Azithromycin 500mg po daily Potentially may have aspirated given his altered mentation, place on dysphagia diet until more alert (3) Altered mental state: appears lethargic, slow to respond , speech appears slurred, unknown baseline Lives alone reportedly with aide checking in on him ABG requested, reveiwed- no signs of hypoxia or hypercapnea on ABG check CT head to evaluate for stroke. CT head showed no acute intracranial abnormality. 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 (4) Dehydration: clinically dehydrated, disheveled D5NS @ 75 cc/hr , watch for signs of fluid overload Creatinine trending down from 1.7 (05/24) to 1.6 (05/25) to 1.5 this morning (05/26) Incidentally noted blood at urethral meatus : likely from traumatic straight cath, patient has voided clear urine afterwards, monitor for now DVT ppx: heparin 5000 q12h Full code 05/25/2024 CT head negative for stroke. Lives alone at home. Order occupational therapy assessment today. There is a report of patient getting diagnosed with dementia recently. We will have to assess if he is safe to go home alone at this time. Caregiver is not present 05/11. Check speech therapy evaluation. ? I will check MRI brain Continue normal saline 75 cc/h. Creatinine 1.6 which is at his baseline. 05/26/2024 CT head negative for stroke MRI head shows evidence of acute right pontine non-hemorrhagic infarct and chronic white matter disease. Continue aspirin. Started Plavix Check speech therapy evaluation. Continue normal saline 75 cc/h Creatinine 1.5 this morning down from 1.6 yesterday. Calcium 7.8 this morning trending down from 8.6 (05/24) and 7.9 yesterday (05/25) Potassium 3.4 this morning trending down from 4.4 (05/24) and 4.1 yesterday (05/25) PDMP PDMP Reviewed: Not Reviewed Coding Level of Care Code 52046 Diagnoses Essential (primary) hypertension I10 Influenza A J10.1 Generalized muscle weakness M62.81 Lumbar disc disease with radiculopathy M51.16 Degeneration of intervertebral disc of lumbar region with discogenic back pain and lower extremity pain M51.362 Disc-related pain type: discogenic back pain and lower extremity pain COPD (chronic obstructive pulmonary disease) J44.9 Altered mental state R41.82 Documented by User: Corrie Desouza MD 05/26/24 12:10 Physical Exam 2 Urinary Catheter Management: Parrish: Cath Placed During This Visit: yes Data 05/26/24 05:50 05/26/24 05:50 A&P Assessment and plan (1) Essential (primary) hypertension: (2) Influenza A: (3) Generalized muscle weakness: (4) Lumbar disc disease with radiculopathy: (5) DDD (degenerative disc disease), lumbar: Qualifiers: Disc-related pain type: discogenic back pain and lower extremity pain Q ualified Code(s): M51.362 - Other intervertebral disc degeneration, lumbar region with discogenic back pain and lower extremity pain (6) COPD (chronic obstructive pulmonary disease): (7) Altered mental state: Plan (1) Influenza A: influenza A + started Tamiflu 75mg BID (2) COPD exacerbation: Mild COPD exacerbation triggered by acute viral illness. Patient has some coarse crackles which clear after a bout of cough, likley post tussive clearing Start duoneb and budesonide scheduled inhalation Holding off on steroids for now No obvious consolidation on CXR Azithromycin 500mg po daily Potentially may have aspirated given his altered mentation, place on dysphagia diet until more alert (3) Altered mental state: appears lethargic, slow to respond , speech appears slurred, unknown baseline Lives alone reportedly with aide checking in on him ABG requested, reveiwed- no signs of hypoxia or hypercapnea on ABG check CT head to evaluate for stroke. CT head showed no acute intracranial abnormality. 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 (4) Dehydration: clinically dehydrated, disheveled D5NS @ 75 cc/hr , watch for signs of fluid overload Creatinine trending down from 1.7 (05/24) to 1.6 (05/25) to 1.5 this morning (05/26) Incidentally noted blood at urethral meatus : likely from traumatic straight cath, patient has voided clear urine afterwards, monitor for now DVT ppx: heparin 5000 q12h Full code 05/25/2024 CT head negative for stroke. Lives alone at home. Order occupational therapy assessment today. There is a report of patient getting diagnosed with dementia recently. We will have to assess if he is safe to go home alone at this time. Caregiver is not present 05/11. Check speech therapy evaluation. ? I will check MRI brain Continue normal saline 75 cc/h. Creatinine 1.6 which is at his baseline. 05/26/2024 -CT head negative for stroke -MRI head shows evidence of acute right pontine non-hemorrhagic infarct and chronic white matter disease. -Continue aspirin. Started Plavix -Check speech therapy evaluation. -Continue normal saline 75 cc/h -Creatinine 1.5 this morning down from 1.6 yesterday. -Potassium 3.4 this morning trending down from 4.4 (05/24) and 4.1 yesterday (05/25). Replete potassium today -Placed on aspirin atorvastatin Plavix, metoprolol tartrate twice daily daily. ?Check echo -Consult neurology. -PT OT speech - PDMP PDMP Reviewed: Not Reviewed Attestations 2 Medical Necessity Statement*: Patient does have mild encephalopathy. Will need to assess if he is safe to go home alone. Requires continued hospitalization. Diagnoses Essential (primary) hypertension I10 Influenza A J10.1 Generalized muscle weakness M62.81 Lumbar disc disease with radiculopathy M51.16 Degeneration of intervertebral disc of lumbar region with discogenic back pain and lower extremity pain M51.362 Disc-related pain type: discogenic back pain and lower extremity pain COPD (chronic obstructive pulmonary disease) J44.9 Altered mental state R41.82
[2024-05-26 12:52] LABS: Estmated Average Glucose 88; Hemoglobin A1C 4.7 % (4.0-6.0)
--- NOTE | 2024-05-26 13:09 | P.CONIM_ITS ---
Providers/Reason For Consult 2 Consulting Physician/Specialty*: Sudhir Gutierrez MD neurology and epilepsy Reason for Consult*: Acute right pontine infarction Attending Physician: Corrie Desouza MD Primary Care Provider: EVELYN Bennett History of Present Illness History of Present Illness Scott Silva is a 83 year old male with a history of chronic obstructive pulmonary disease. Patient admitted with altered mental status and generalized weakness. Noncontrast head MRI was obtained on 05/25/2024 and revealed right pontine infarction reported to be acute. Head MRI without contrast 05/25/2024: IMPRESSION: 1. Acute RIGHT pontine, nonhemorrhagic infarct. 2. No hemorrhage. 3. Extensive chronic white matter disease. 4. Ventriculomegaly with mild progression since 2020. May be related to atrophy or normal pressure hydrocephalus. As a result a neurology consult was obtained by the hospitalist attending physician. Drug allergies: None Current medications: Aspirin 81 mg p.o. daily Lipitor 10 mg p.o. daily Cymbalta 60 mg p.o. twice daily Vitamin D2 50,000 international units p.o. weekly Magnesium oxide 400 mg p.o. twice daily Neurontin 100 mg p.o. twice daily for pain Metoprolol 25 mg p.o. twice daily Umeclidinium/vilanterol 6.25/25 mcg inhalation powder 1 inhalation every 24 hours Past medical history: Chronic obstructive pulmonary disease Lumbar degenerative disc disease Vitamin D deficiency Habits: None Family history: Remarkable for father and uncles with stroke Review of Systems 2 General: Reports: 10 or more systems reviewed and unremarkable except in HPI and below Medications/Allergies Home Medications ?Medication ?Instructions ?Recorded ?Confirmed ?Last Taken ?Type DME: Walker #1 ea 12/11/23 05/24/24 Unkn own Rx aspirin 81 mg tablet,delayed 81 mg PO DAILY 12/31/23 0 05/24/24 Unknown History release (Adult Low Dose Aspirin) atorvastatin 10 mg tablet 10 mg PO DAILY #30 tabs 03/1505/24/24 Unknown Rx duloxetine 60 mg capsule,delayed 60 mg PO BID #60 caps 03/25/24 05/24/24 Unknown Rx release (Cymbalta) ergocalciferol (vitamin D2) 1,250 1,250 mcg PO .weekly #4 caps 03/25/24 05/24/24 Unknown Rx mcg (50,000 unit) capsule gabapentin 100 mg capsule 100 mg PO BID pain #60 caps 03/25/24 05/24/24 Unknown Rx magnesium oxide 400 mg PO BID #60 caps 03/2505/24/24 Unknown Rx metoprolol tartrate 25 mg tablet 25 mg PO BID@0900,210 0 #60 tabs 03/25/24 05/24/24 Unknown Rx umeclidinium 62.5 mcg-vilanterol 1 inh inhalation Q24H #60 ea 03/25/24 05/24/24 Unknown Rx 25 mcg/actuation powdr for inhalation (Anoro Ellipta) Allergies Allergy/AdvReac Type Severity Reaction Status Date / Time No Known Allergies Allergy Verified 05/24/24 05:39 Current Medications Generic Name Dose Route Start Last Admin Trade Name Freq PRN Reason Stop Dose Admin Acetaminophen 650 mg 05/24/24 18:19 05/25/24 06:04 Acetaminophen 325 Mg Tablet PO 650 mg Q6H PRN Administration Mild/Mod Pain Or Temp >/= 101 Albuterol/Ipratropium 3 ml 05/24/24 20:00 05/26/24 09:12 Ipratropium-Albuterol 3 Ml Neb INHALATION 3 ml Q6H.RESP AILEEN Administration Aspirin 81 mg 05/25/24 09:00 05/26/24 08:05 Aspirin 81 Mg Ec Tablet PO 81 mg DAILY AILEEN Administration Atorvastatin Calcium 80 mg 05/26/24 09:00 05/26/24 08:05 Atorvastatin 40 Mg Tablet PO 80 mg DAILY AILEEN Administration Azithromycin 500 mg 05/24/24 18:25 05/25/24 17:15 Azithromycin 250 Mg Tablet PO 500 mg DAILY@1800 AILEEN Administration Protocol Benzonatate 100 mg 05/24/24 18:19 05/25/24 06:04 Benzonatate 100 Mg Capsule PO 100 mg TID PRN Administration COUGH Budesonide 0.5 mg 05/24/24 20:00 05/26/24 09:13 Budesonide 0.5 Mg/2 Ml Neb INHALATION Not Given BID.RESPIRATORY AILEEN Clopidogrel Bisulfate 75 mg 05/26/24 09:00 05/26/24 08:05 Clopidogrel 75 Mg Tablet PO 75 mg DAILY AILEEN Administration Duloxetine HCl 60 mg 05/25/24 09:00 05/26/24 08:06 Duloxetine 60 Mg Capsule PO 60 mg BID AILEEN Administration Heparin Sodium (Porcine) 5,000 unit 05/24/24 21:00 05/26/24 08:08 Heparin 5,000 Unit/Ml Inj 1 Ml SUBCUT 5,000 unit Q12H IALEEN Administration Metoprolol Tartrate 25 mg 05/24/24 21:00 05/26/24 08:05 Metoprolol Tartrate 25 Mg Tablet PO 25 mg BID@0900,2100 AILEEN Administration Oseltamivir Phosphate 75 mg 05/25/24 09:10 05/26/24 08:05 Oseltamivir Phosphate 75 Mg Capsule PO 75 mg BID AILEEN Administration Pantoprazole Sodium 40 mg 05/25/24 09:00 05/26/24 08:[address] 40 Mg Tablet PO 40 mg DAILY AILEEN Administration PFSH Acute 2 PFSH: Medical History Essential (primary) hypertension Rhabdomyolysis Syncope Balance disorder Claudication COPD (chronic obstructive pulmonary disease) DDD (degenerative disc disease), lumbar Cigarette smoker Daily consumption of alcohol Beer or whiskey stop 2016 Surgical History History of appendectomy History of cataract bilateral Family History Father Cancer Other Lung disease Denies family history of Anesthesia complication Social History Smoking and tobacco/nicotine status: current every day tobacco/nicotine user Alcohol intake: former Year of sobriety/quit date alcohol: 2016 Substance/Drug Use: unknown Adopted: No Caregiver/support person: No Lives independently: Yes Household members: none Housing: Manufactured/Mobile home Marital status: Single Highest education level completed: 10th Grade service: No Current occupational status: retired Do you think of yourself as: Straight/Heterosexual Current gender identity: Male Vitals/I&O/Wt Last Vital Signs Temp 97.9 F 05/26/24 11:55 Pulse 79 05/26/24 11:55 Resp 18 05/26/24 11:55 BP 159/72 05/26/24 11:55 Pulse Ox 97 05/26/24 11:55 O2 Del Method Room Air 05/26/24 11:55 O2 Flow Rate 0 05/26/24 08:00 05/25/24 05/26/24 05/26/24 22:59 06:59 14:59 Intake Total 1240 / 2213.75 150 / 2363.75 1535 / 1535 Output Total 300 / 300 Balance 1240 / 2213.75 -150 / 2063.75 1535 / 1535 Weight last 48 hrs Weight 154 lb 9.6 oz Weight 146 lb 12.8 oz Weight 147 lb 4 oz Physical Exam 2 Narrative: The patient is alert. He was eating his lunch. Patient head atraumatic. Neck supple. Cranial nerves II through XII revealed no obvious facial weakness. Patient was able to protrude his tongue and move his tongue from [id number]. He had bilateral elevation of his palate. Motor testing grossly nonfocal. Patient able to lift all extremities upper and lower against resistance and gravity. Throat clear. Lungs clear. Heart regular rhythm and rate. Extremities were negative for cyanosis Urinary Catheter Management: Parrish: Cath Placed During This Visit: yes Urinary Catheter Date of Insertion: 05/26/24 Urinary Catheter Time of Insertion: 10:58 Data 05/26/24 05:50 05/26/24 05:50 A&P Assessment and plan (1) Right pontine stroke: Impression: 1. Acute pontine stroke Plan: 1. Agree with aspirin 81 mg p.o. every morning with food 2. Recommend starting Plavix 75 mg p.o. every morning with food 3. Carotid duplex study to assess for carotid or vertebral artery stenosis 4. Recommend obtaining 2D echocardiogram to assess for embolic source for stroke 5. Recommend cardiac telemetry monitoring to assess for cardiac arrhythmia 6. Agree with plans for rehab for strengthening PDMP PDMP Reviewed: Not Reviewed Consult Attestations 2 Medical Necessity Statement: The patient was evaluated by neurology for acute pontine stroke reported on head MRI on 05/25/2024 Coding Level of Care Code 14484 Diagnoses Right pontine stroke I63.50
[2024-05-26 13:19] LABS: Chol HDL Ratio 1.94 mg/dL (1.0-5.00); Cholesterol 95 mg/dL (0-200); HDL Cholesterol 49 mg/dL (60-100); LDL Cholesterol Calculated 35 mg/dL (50-129); Thyroid Stimulating Hormone 1.73 uIU/mL (0.27-4.20); Triglycerides 55 mg/dL (0-150); VLDL Cholestrol Calculation 11 mg/dL (0-30)
[2024-05-26] MEDS: oseltamivir phosphate 30 mg Capsule PO (16:54)
[2024-05-26] MEDS: azithromycin 250 mg Tablet 500 MG PO (16:54)
--- NOTE | 2024-05-26 20:13 | USCV_ITS ---
Scott Silva Age: 83 Gender: M : 1940 Exam Date: 05/26/2024 21:14 Ordering Phys: Corrie Desouza MD Technologist: CELESTINO [place] [facility] [place]ication: stroke, patient is unresponsive in influenza isolation in 261-1 Risk Factors: unknown Previous Vascular Surgery: unknown Right Brachial BP: 159 / 72 Left Brachial BP: / Right Left Velocity (cm/s) Spectral Plaque Velocity (cm/s) Spectral Plaque Syst/Diast Broadening Syst/Diast Broadening 84.30/ 10.30 Min None Prox CCA 158.90/ 28.30 Min None 82.80/ 12.80 Min Homo Mid CCA 98.50 / 19.10 Min Hetro 75.00/ 16.70 Min Hetro Distal CCA 82.20 / 13.70 Min Hetro 64.60/ 14.10 Mod Ran Prox ICA 96.70 / 20.90 Mod Ran 89.90/ 24.30 Min Hetro Mid ICA 82.00 / 22.70 Min Ran 48.10/ 15.40 Mod Hetro Distal ICA 49.60 / 10.10 Mod Hetro 100.90 Min Hetro ECA 87.60 Min Hetro 1.20 ICA/CCA 1.20 Antegrade Vertebral Antegrade 55.20/ 19.20 cm/s 63.50/ 11.60 cm/s Tri Subclavian Tri 65.40 80.40 CONCLUSIONS Right ICA stenosis <50%. Moderate atheromatous plaque right carotid bulb/ICA. Left ICA stenosis <50%. Moderate atheromatous plaque left carotid bulb/ICA. Intimal thickening in the common carotid arteries and internal carotid arteries bilaterally. Scattered atheromatous plaque both CCA's Normal antegrade Doppler flow noted in the right vertebral artery. Normal antegrade Doppler flow noted in the left vertebral artery. Florencio Torres MD (Electronically Signed) Final Date: 27 May 2024 12:01 S
[2024-05-26] MEDS: hyDRALAzine 25 mg Tablet PO (23:57)
[2024-05-27] VITALS (11 sets, daily range): BP systolic 136–183; BP diastolic 74–86; PULSE 62–90; RESP 16–22; TEMP 36.5–38.5; O2SAT 93–98
[2024-05-27] MEDS: ipratropium-albuterol 3 mL Neb INHALATION ×3 (01:32→20:21)
[2024-05-27 05:37] LABS: Basophils % 0.1 %; Eosinophils # 0.1 10^3/uL (0.0-0.8); Eosinophils % 1.1 %; Lymphocytes # 0.7 10^3/uL (0.8-4.8); Lymphocytes % 9.9 %; Mean Corpuscular HGB Conc 32.9 g/dL (30-55); Mean Corpuscular Hemoglobin 32.9 pg (27-33); Mean Platelet Volume 10.3 fL (7.4-10.4); Monocytes # 0.5 10^3/uL (0.2-0.9); Neutrophils # 5.86 10^3/uL (1.8-7.7); Neutrophils % 81.5 %; Nucleated Red Blood Cells % 0 %; Platelet Count 141 10^3/cmm (157-399); Red Cell Distribution Width 13.1 % (12.1-15.1); White Blood Count 7.19 10^3/uL (3.29-11.43)
[2024-05-27 06:09] LABS: Anion Gap 15.8 (5-19); Blood Urea Nitrogen 21 mg/dL (8-23); Calcium 8.3 mg/dL (8.5-10.5); Carbon Dioxide 22 mmol/L (22-29); Chloride 102 mmol/L (98-107); Creatinine Clr Calc Pharmacy 42.0973; Glucose 96 mg/dL (65-115); Magnesium 1.8 mg/dL (1.7-2.3); Osmolality Calculated 285 mOsm/kg (285-295); Potassium 3.8 mmol/L (3.5-5.1); Sodium 136 mmol/L (136-145)
--- NOTE | 2024-05-27 08:21 | P.PN_ITS ---
Documented by User: Lars Rey 05/27/24 11:16 Subjective 2 Subjective: Patient was seen this morning. No acute overnight events. He eating breakfast this morning and reports he is feeling fine today. He states having some cough still but has no overnight concerns. Vitals/I&O/Wt Last Vital Signs Temp 98.2 F 05/27/24 04:00 Pulse 72 05/27/24 04:26 Resp 17 05/27/24 04:00 BP 168/79 05/27/24 04:00 Pulse Ox 97 05/27/24 04:00 O2 Del Method Room Air 05/27/24 04:00 O2 Flow Rate 0 05/26/24 08:00 05/26/24 05/27/24 05/27/24 22:59 06:59 14:59 Intake Total 60 / 1595 200 / 1795 Output Total 775 / 775 Balance 60 / 1595 -575 / 1020 Weight last 48 hrs Weight 67.812 kg Weight 70.125 kg Physical Exam 2 Const: COMMON NORMALS: no acute distress and patient oriented x3 Resp: COMMON NORMALS: normal respiratory effort and clear to auscultation bilaterally AUSCULTATION: clear to auscultation bilaterally Cardio: COMMON NORMALS: regular rate, regular rhythm, S1 normal heart sound present, S2 normal heart sound present and No murmurs present (Cardio) RATE: regular rate RHYTHM: regular rhythm HEART SOUNDS: S1 normal heart sound present and S2 normal heart sound present Neuro: COMMON NORMALS: patient oriented x3 Urinary Catheter Management: Parrish: Cath Placed During This Visit: yes Reason for Continuing Indwelling Catheter: Other Urinary Catheter Date of Insertion: 05/26/24 Urinary Catheter Time of Insertion: 10:58 Data 05/27/24 05:20 05/27/24 05:20 A&P Assessment and plan (1) Essential (primary) hypertension: (2) Dehydration: (3) Influenza A: (4) Right pontine stroke: (5) Altered mental state: (6) COPD (chronic obstructive pulmonary disease): (7) COPD exacerbation: Plan (1) Essential (primary) hypertension: (2) Influenza A: (3) Generalized muscle weakness: (4) Lumbar disc disease with radiculopathy: (5) DDD (degenerative disc disease), lumbar: Qualifiers: Disc-related pain type: discogenic back pain and lower extremity pain Q ualified Code(s): M51.362 - Other intervertebral disc degeneration, lumbar region with discogenic back pain and lower extremity pain (6) COPD (chronic obstructive pulmonary disease): (7) Altered mental state: Plan (1) Influenza A: influenza A + started Tamiflu 75mg BID (2) COPD exacerbation: Mild COPD exacerbation triggered by acute viral illness. Patient has some coarse crackles which clear after a bout of cough, likley post tussive clearing Start duoneb and budesonide scheduled inhalation Holding off on steroids for now No obvious consolidation on CXR Azithromycin 500mg po daily Potentially may have aspirated given his altered mentation, place on dysphagia diet until more alert (3) Altered mental state: appears lethargic, slow to respond , speech appears slurred, unknown baseline Lives alone reportedly with aide checking in on him ABG requested, reveiwed- no signs of hypoxia or hypercapnea on ABG check CT head to evaluate for stroke. CT head showed no acute intracranial abnormality. 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 (4) Dehydration: clinically dehydrated, disheveled D5NS @ 75 cc/hr , watch for signs of fluid overload Creatinine trending down from 1.7 (05/24) to 1.6 (05/25) to 1.5 this morning (05/26) Incidentally noted blood at urethral meatus : likely from traumatic straight cath, patient has voided clear urine afterwards, monitor for now DVT ppx: heparin 5000 q12h Full code 05/25/2024 CT head negative for stroke. Lives alone at home. Order occupational therapy assessment today. There is a report of patient getting diagnosed with dementia recently. We will have to assess if he is safe to go home alone at this time. Caregiver is not present 05/11. Check speech therapy evaluation. ? I will check MRI brain Continue normal saline 75 cc/h. Creatinine 1.6 which is at his baseline. 05/26/2024 CT head negative for stroke MRI head shows evidence of acute right pontine non-hemorrhagic infarct and chronic white matter disease. Continue aspirin. Started Plavix Check speech therapy evaluation. Continue normal saline 75 cc/h Creatinine 1.5 this morning down from 1.6 yesterday. Calcium 7.8 this morning trending down from 8.6 (05/24) and 7.9 yesterday (05/25) Potassium 3.4 this morning trending down from 4.4 (05/24) and 4.1 yesterday (05/25) 05/27/2024 - Check speech therapy evaluation. - Aspirin 81 mg p.o. every morning with food. - Continue Plavix 75 mg p.o. every morning with food. - Neurology following Recommended Carotid duplex study to assess for carotid or vertebral artery stenosis. Pending. Recommend obtaining 2D echocardiogram to assess for embolic source for stroke. Recommend cardiac telemetry monitoring to assess for cardiac arrhythmia. Agree with plans for rehab for strengthening. PDMP PDMP Reviewed: Not Reviewed Coding Level of Care Code 60239 Diagnoses Essential (primary) hypertension I10 Dehydration E86.0 Influenza A J10.1 Right pontine stroke I63.50 Altered mental state R41.82 COPD (chronic obstructive pulmonary disease) J44.9 COPD exacerbation J44.1 Documented by User: Corrie Desouza MD 05/27/24 13:33 Physical Exam 2 Neuro: OTHER: Able to move all 4 extremities. No drift noted. Cranial nerves intact. Urinary Catheter Management: Parrish: Cath Placed During This Visit: yes Data 05/27/24 05:20 05/27/24 05:20 A&P Assessment and plan (1) Essential (primary) hypertension: (2) Dehydration: (3) Influenza A: (4) Right pontine stroke: (5) Altered mental state: (6) COPD (chronic obstructive pulmonary disease): (7) COPD exacerbation: Plan (1) Essential (primary) hypertension: (2) Influenza A: (3) Generalized muscle weakness: (4) Lumbar disc disease with radiculopathy: (5) DDD (degenerative disc disease), lumbar: Qualifiers: Disc-related pain type: discogenic back pain and lower extremity pain Q ualified Code(s): M51.362 - Other intervertebral disc degeneration, lumbar region with discogenic back pain and lower extremity pain (6) COPD (chronic obstructive pulmonary disease): (7) Altered mental state: Plan (1) Influenza A: influenza A + started Tamiflu 75mg BID (2) COPD exacerbation: Mild COPD exacerbation triggered by acute viral illness. Patient has some coarse crackles which clear after a bout of cough, likley post tussive clearing Start duoneb and budesonide scheduled inhalation Holding off on steroids for now No obvious consolidation on CXR Azithromycin 500mg po daily Potentially may have aspirated given his altered mentation, place on dysphagia diet until more alert (3) Altered mental state: appears lethargic, slow to respond , speech appears slurred, unknown baseline Lives alone reportedly with aide checking in on him ABG requested, reveiwed- no signs of hypoxia or hypercapnea on ABG check CT head to evaluate for stroke. CT head showed no acute intracranial abnormality. 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 (4) Dehydration: clinically dehydrated, disheveled D5NS @ 75 cc/hr , watch for signs of fluid overload Creatinine trending down from 1.7 (05/24) to 1.6 (05/25) to 1.5 this morning (05/26) Incidentally noted blood at urethral meatus : likely from traumatic straight cath, patient has voided clear urine afterwards, monitor for now DVT ppx: heparin 5000 q12h Full code 05/25/2024 CT head negative for stroke. Lives alone at home. Order occupational therapy assessment today. There is a report of patient getting diagnosed with dementia recently. We will have to assess if he is safe to go home alone at this time. Caregiver is not present 05/11. Check speech therapy evaluation. ? I will check MRI brain Continue normal saline 75 cc/h. Creatinine 1.6 which is at his baseline. 05/26/2024 CT head negative for stroke MRI head shows evidence of acute right pontine non-hemorrhagic infarct and chronic white matter disease. Continue aspirin. Started Plavix Check speech therapy evaluation. Continue normal saline 75 cc/h Creatinine 1.5 this morning down from 1.6 yesterday. Calcium 7.8 this morning trending down from 8.6 (05/24) and 7.9 yesterday (05/25) Potassium 3.4 this morning trending down from 4.4 (05/24) and 4.1 yesterday (05/25) 05/27/2024 - Check speech therapy evaluation.?Dysphagia level 4 extremely thick pur?ed diet. - Aspirin 81 mg p.o. every morning with food. - Continue Plavix 75 mg p.o. every morning with food. - Neurology following Recommended Carotid duplex study to assess for carotid or vertebral artery stenosis. Pending.?Negative Recommend obtaining 2D echocardiogram to assess for embolic source for stroke.?Negative Recommend cardiac telemetry monitoring to assess for cardiac arrhythmia.?Will need event monitor at discharge. Agree with plans for rehab for strengthening. Patient is referred to inpatient rehab at this time. PDMP PDMP Reviewed: Not Reviewed Attestations 2 Medical Necessity Statement*: Awaiting placement to rehab. Diagnoses Essential (primary) hypertension I10 Dehydration E86.0 Influenza A J10.1 Right pontine stroke I63.50 Altered mental state R41.82 COPD (chronic obstructive pulmonary disease) J44.9 COPD exacerbation J44.1
[2024-05-27] MEDS: hyDRALAzine 25 mg Tablet PO ×3 (09:41→21:17)
[2024-05-27] MEDS: pantoprazole DR 40 mg Tablet PO (09:41)
[2024-05-27] MEDS: aspirin 81 mg EC Tablet PO (09:41)
[2024-05-27] MEDS: oseltamivir phosphate 30 mg Capsule PO ×2 (09:41→17:07)
[2024-05-27] MEDS: atorvastatin 40 mg Tablet 80 MG PO (09:41)
[2024-05-27] MEDS: duloxetine 60 mg Capsule PO ×2 (09:41→17:07)
[2024-05-27] MEDS: clopidogrel 75 mg Tablet PO (09:42)
[2024-05-27] MEDS: heparin 5,000 unit/mL INJ 1 mL 5000 UNIT SUBCUT ×2 (09:42→21:02)
[2024-05-27] MEDS: metoprolol tartrate 25 mg Tablet PO ×2 (09:43→21:02)
[2024-05-27] MEDS: azithromycin 250 mg Tablet 500 MG PO (17:07)
[2024-05-27] MEDS: budesonide 0.5 mg/2 mL Neb INHALATION (20:20)
[2024-05-27] MEDS: acetaminophen 325 mg Tablet 650 MG PO (21:02)
[2024-05-28] VITALS (12 sets, daily range): BP systolic 131–156; BP diastolic 64–83; PULSE 64–92; RESP 16–24; TEMP 36.6–37.1; O2SAT 94–98
[2024-05-28] MEDS: acetaminophen 325 mg Tablet 650 MG PO (00:03)
--- NOTE | 2024-05-28 00:11 | PC.NURSE ---
patient resting in bed with eyes closed, [employer] sales beauty advisor took his temp and it was 101.3 axillary. 1000mg of tylenol given po. patient tolerated well.
[2024-05-28] MEDS: ipratropium-albuterol 3 mL Neb INHALATION ×4 (01:41→20:52)
[2024-05-28 07:08] LABS: Basophils % 0.1 %; Eosinophils % 0.3 %; Hematocrit 34.6 % (37-53); Lymphocytes # 0.8 10^3/uL (0.8-4.8); Mean Corpuscular HGB Conc 32.4 g/dL (30-55); Mean Corpuscular Hemoglobin 32.8 pg (27-33); Mean Corpuscular Volume 101.5 fl (82-101); Mean Platelet Volume 11.1 fL (7.4-10.4); Monocytes # 0.5 10^3/uL (0.2-0.9); Monocytes % 7.3 %; Neutrophils # 5.56 10^3/uL (1.8-7.7); Neutrophils % 79.7 %; Nucleated Red Blood Cells % 0 %; Platelet Count 145 10^3/cmm (157-399); Red Blood Count 3.41 10^6/uL (3.85-5.65); White Blood Count 6.98 10^3/uL (3.29-11.43)
[2024-05-28 07:28] LABS: Anion Gap 18.9 (5-19); Blood Urea Nitrogen 25 mg/dL (8-23); Calcium 8.2 mg/dL (8.5-10.5); Carbon Dioxide 21 mmol/L (22-29); Chloride 100 mmol/L (98-107); Creatinine Clr Calc Pharmacy 38.7398; Glucose 107 mg/dL (65-115); Osmolality Calculated 287 mOsm/kg (285-295); Potassium 3.9 mmol/L (3.5-5.1); Sodium 136 mmol/L (136-145)
[2024-05-28] MEDS: budesonide 0.5 mg/2 mL Neb INHALATION ×2 (07:28→20:52)
--- NOTE | 2024-05-28 09:33 | P.DS_ITS ---
Documented by User: Lars Rey 05/28/24 10:28 Discharge Providers Date of Admission: 05/25/24 12:40 Date of Discharge: May 28, 2024 Attending Provider at Admission: Raya Hartman MD Attending Provider at Discharge: Corrie Desouza MD Primary Care Provider: EVELYN Bennett Diagnoses at Discharge Discharge Diagnosis (1) Essential (primary) hypertension: Status: Chronic (2) Dehydration: Status: Acute (3) Influenza A: Status: Acute (4) Right pontine stroke: Status: Acute (5) Altered mental state: Status: Acute (6) COPD (chronic obstructive pulmonary disease): Status: Chronic (7) COPD exacerbation: Status: Acute Reason for Visit Reason for Visit: WEAKNESS Hospital Course Hospital Course Scott Silva is an 83-year-old with PMHx of COPD who presented to ER on 05/24 with complaints that his legs stopped the night before. He also has a history of a chronic cough and noticed it had worsened with occasional chest pain after coughing. Patient was tested positive for Influenza A and was started on Tamiflu 75mg BID. Signs of mild COPD exacerbation triggered by acute viral illness were noticed and he was started on duoneb and budenoside along with azithromycin 500mg po daily. CXR showed no obvious consolidation. Patient has AMS and there were concerns for potential aspiration and patient was placed on dysphagia diet until he became more alert. Patient was clinically dehydrated and placed on D5NS @ 75 cc/hr. ABG was reviewed and showed no signs of hypoxia or hypercapnia. CT head showed no acute intracranial abnormality. 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 Neurology was consulted. Patient continued aspirin and plavix was started on 05/26. heparin 5000 q12h for DVT prophylaxis. Carotid duplex was recommended and showed < 50% stenosis in right and left ICA with moderate atheromatous plaques. Normal anterograde doppler flow in both left and right vertebral arteries. Patient agreed with rehab for strengthening. Physical Exam Resp: COMMON NORMALS: normal respiratory effort and clear to auscultation bilaterally AUSCULTATION: clear to auscultation bilaterally Cardio: COMMON NORMALS: regular rate, regular rhythm, S1 normal heart sound present and S2 normal heart sound present RATE: regular rate RHYTHM: regular rhythm HEART SOUNDS: S1 normal heart sound present and S2 normal heart sound present Urinary Catheter Management: Parrish: Cath Placed During This Visit: yes Reason for Continuing Indwelling Catheter: Accurate Measurement of Urinary Output in Critically Ill Patients Urinary Catheter Date of Insertion: 05/26/24 Urinary Catheter Time of Insertion: 10:58 Discharge Data Studies Completed and Pending Completed Studies During Hospitalization Category Date Time Status CT head wo con* [id number] Routine Cat Scan 05/24/24 18:18 Completed XR KUB portable [id number] Routine Exams 05/25/24 13:16 Completed XR chest 1V portable [id number] Stat Exams 05/24/24 08:07 Completed MR head wo con* [id number] Routine MRI 05/25/24 12:44 Completed CV carotid duplex BI* [id number] Routine Ultrasound 05/26/24 20:13 Completed CV. echo complete* [id number] Routine Ultrasound 05/25/24 21:17 Completed Radiology Impressions Chest X-Ray 05/24/24 08:07 IMPRESSION: No acute abnormality Head CT 05/24/24 18:18 IMPRESSION: No acute intracranial abnormality. Head MRI 05/25/24 12:44 IMPRESSION: 1. Acute RIGHT pontine, nonhemorrhagic infarct. 2. No hemorrhage. 3. Extensive chronic white matter disease. 4. Ventriculomegaly with mild progression since 2020. May be related to atrophy or normal pressure hydrocephalus. KUB X-Ray 05/25/24 13:16 IMPRESSION: No metallic contraindication for MRI as above. Laboratory Results WBC 6.98 10^3/uL (3.29-11.43) 05/28/24 06:28 RBC 3.41 10^6/uL (3.85-5.65) L 05/28/24 06:28 Hgb 11.20 g/dL (11.27-16.99) L 05/28/24 06:28 Hct 34.6 % (37-53) L 05/28/24 06:28 MCV 101.5 fl (82-101) H 05/28/24 06:28 MCH 32.8 pg (27-33) 05/28/24 06:28 MCHC 32.4 g/dL (30-55) 05/28/24 06:28 RDW 13.0 % (12.1-15.1) 05/28/24 06:28 Plt Count 145 10^3/cmm (157-399) L 05/28/24 06:28 MPV 11.1 fL (7.4-10.4) H 05/28/24 06:28 Neut % (Auto) 79.7 % 05/28/24 06: Lymph % (Auto) 12.0 % 05/28/24 06: [place] % (Auto) 7.3 % 05/28/24 06: Eos % (Auto) 0.3 % 05/28/24 06: Baso % (Auto) 0.1 % 05/28/24 06: Neut # (Auto) 5.56 10^3/uL (1.8-7.7) 05/28/24 06: Lymph # (Auto) 0.8 10^3/uL (0.8-4.8) 05/28/24 06: [place] # (Auto) 0.5 10^3/uL (0.2-0.9) 05/28/24 06: Eos # (Auto) 0.0 10^3/uL (0.0-0.8) 05/28/24 06: Baso # (Auto) 0.0 10^3/uL (0.0-0.1) 05/28/24 06: Nucleated RBC % (auto) 0 % 05/28/24 06: Nucleated RBCs # 0.0 /100WBC 05/28/24 06: D-Dimer 0.83 ug/mLFEU (0-0.59) H 05/24/24 08:19 Specimen Type Arterial 05/24/24 17:30 Sample Site Brachial, left 05/24/24 17:30 ABG pH 7.44 (7.35-7.45) 05/24/24 17:30 ABG pCO2 31.7 mmHg (35-45) L 05/24/24 17:30 ABG pO2 67.1 mmHg (80.0-100.0) L 05/24/24 17:30 ABG PO2/FiO2 Ratio 319 05/24/24 17:30 ABG HCO3 21.3 mmol/L (22-26) L 05/24/24 17:30 ABG O2 Saturation 95.8 05/24/24 17:30 ABG Base Excess -2.2 mmol/L (-2.0-2.0) L 05/24/24 17:30 Manuel Test N/a 05/24/24 17:30 A-a O2 Gradient 5.7 mmHg (5-10) 05/24/24 17:30 Hematocrit 34.5 % (42-52) L 05/24/24 17:30 Hgb O2 Saturation 93.8 % (95-100) L 05/24/24 17:30 Carboxyhemoglobin 1.0 %THgb (0.4-20.1) 05/24/24 17:30 Methemoglobin 1.1 % (0.4-1.5) 05/24/24 17:30 Total Hemoglobin 11.3 g/dL (14-18) L 05/24/24 17:30 Sodium 134.0 mmol/L (131-143) 05/24/24 17:30 Potassium 4.2 mmol/L (3.5-5.0) 05/24/24 17:30 Glucose 97.0 mg/dL (70-115) 05/24/24 17:30 Ionized Calcium 1.1 mmol/L (1.1-1.4) 05/24/24 17:30 O2 Delivery Device Room air 05/24/24 17:30 FiO2 21.0 % 05/24/24 17:30 Assistance Representative ID Amh 05/24/24 17:30 Sodium 136 mmol/L (136-145) 05/28/24 06:28 Potassium 3.9 mmol/L (3.5-5.1) 05/28/24 06:28 Chloride 100 mmol/L (98-107) 05/28/24 06:28 Carbon Dioxide 21 mmol/L (22-29) L 05/28/24 06:28 Anion Gap 18.9 (5-19) 05/28/24 06:28 BUN 25 mg/dL (8-23) H 05/28/24 06:28 Creatinine 1.4 mg/dL (0.7-1.2) H 05/28/24 06:28 GFR Calculation Not Reportable 05/28/24 06:28 Glucose 107 mg/dL (65-115) 05/28/24 06:28 POC Glucose 104 mg/dL (70-110) 05/24/24 21:16 Estimat Average Glucose 88 05/26/24 05:50 Hemoglobin A1c 4.7 % (4.0-6.0) 05/26/24 05:50 Calculated Osmolality 287 mOsm/kg (285-295) 05/28/24 06:28 Lactic Acid 1.9 mmol/L (0.5-2.2) 05/24/24 08:19 Calcium 8.2 mg/dL (8.5-10.5) L 05/28/24 06:28 Magnesium 2.0 mg/dL (1.7-2.3) 05/28/24 06:28 Total Bilirubin 0.4 mg/dL (0.15-1.2) 05/25/24 06:01 AST 17 U/L (0-40) 05/25/24 06:01 ALT 8 U/L (0-41) 05/25/24 06:01 Alkaline Phosphatase 71 U/L (40-130) 05/25/24 06:01 Troponin T Baseline 12 ng/L (0-15) 05/24/24 08:19 Troponin T 120 Minute 10.52 ng/L (0-15) 05/24/24 10:15 Delta Troponin T -1.48 ABS# (0-10) L 05/24/24 10:15 Troponin T Hi Sens 6Hr 12.80 ng/L (0-15) 05/24/24 17:04 Troponin T Hi Sens 6Hr Delta 0.80 ng/L (0-12) 05/24/24 17:04 Total Protein 5.8 g/dL (6.6-8.7) L 05/25/24 06:01 Albumin 3.5 g/dL (3.5-5.2) 05/25/24 06:01 Globulin 2.3 g/dL (1.3-4.6) 05/25/24 06:01 Triglycerides 55 mg/dL (0-150) 05/26/24 05:50 Cholesterol 95 mg/dL (0-200) 05/26/24 05:50 LDL Cholesterol, Calc 35 mg/dL (50-129) L 05/26/24 05:50 Total VLDL Cholesterol 11 mg/dL (0-30) 05/26/24 05:50 HDL Cholesterol 49 mg/dL (60-100) L 05/26/24 05:50 Cholesterol/HDL Ratio 1.94 mg/dL (1.0-5.00) 05/26/24 05:50 TSH 1.73 uIU/mL (0.27-4.20) 05/26/24 05:50 Urine Color Yellow (Yellow) 05/24/24 13:14 Urine Appearance Clear (CLEAR) 05/24/24 13:14 Urine pH 7.0 (5-7) 05/24/24 13:14 Ur Specific [place] 1.018 (1.005-1.030) 05/24/24 13:14 Urine Protein Trace (Negative) A 05/24/24 13:14 Urine Glucose (UA) Negative (Normal) 05/24/24 13:14 Urine Ketones Negative (Negative) 05/24/24 13:14 Urine Blood Negative (Negative) 05/24/24 13:14 Urine Nitrate Negative (Negative) 05/24/24 13:14 Urine Bilirubin Negative (Negative) 05/24/24 13:14 Urine Urobilinogen 0.2 mg/dL (Negative) 05/24/24 13:14 Ur Leukocyte Esterase Negative (Negative) 05/24/24 13:14 Urine RBC 0-2 /hpf (0-2) 05/24/24 13:14 Urine WBC 0-5 /hpf (0-5) 05/24/24 13:14 Ur Squamous Epith Cells 0-5 /hpf (0-5) 05/24/24 13:14 Amorphous Sediment Not Reportable 05/24/24 13:14 Urine Bacteria None seen /hpf (NONE) 05/24/24 13:14 Hyaline Casts 0.40 /lpf 05/24/24 13:14 Coronavirus (PCR) Negative (Negative) 05/24/24 09:20 Influenza A (PCR) Positive (Negative) 05/24/24 09:20 Influenza Type B (PCR) Negative (Negative) 05/24/24 09:20 RSV (PCR) Negative (Negative) 05/24/24 09:20 Vitals Last Vital Signs Temp 98.1 F 05/28/24 08:00 Pulse 66 05/28/24 08:00 Resp 16 05/28/24 08:00 BP 155/83 05/28/24 08:00 Pulse Ox 97 05/28/24 08:00 O2 Del Method Room Air 05/28/24 08:00 O2 Flow Rate 0 05/26/24 08:00 Discharge Plan Discharge Patient Disposition: Home Condition: Stable Prescriptions: New pantoprazole 40 mg Tablet,Delayed Release (Dr/Ec) 40 mg PO DAILY Qty: 30 0RF hydralazine 25 mg Tablet 25 mg PO TID Qty: 90 0RF clopidogrel 75 mg Tablet 75 mg PO DAILY Qty: 30 0RF atorvastatin 40 mg Tablet 80 mg PO DAILY Qty: 30 0RF Continued (DME) DME: Walker Unit See Rx Instructions .ROUTE .MEDSUPPLY Qty: 1 0RF Rx Instructions: Code E0143 and E0156 walker 4 wheels and seat aspirin [Adult Low Dose Aspirin] 81 mg tablet,delayed release (DR/EC) 81 mg PO DAILY ergocalciferol (vitamin D2) 1,250 mcg (50,000 unit) capsule 1,250 mcg PO .weekly Qty: 4 2RF duloxetine [Cymbalta] 60 mg capsule,delayed release(DR/EC) 60 mg PO BID Qty: 60 2RF gabapentin 100 mg capsule 100 mg PO BID Qty: 60 2RF magnesium oxide 400 mg magnesium capsule 400 mg PO BID Qty: 60 2RF metoprolol tartrate 25 mg tablet 25 mg PO BID@0900,2100 Qty: 60 2RF Anoro Ellipta 62.5-25 mcg/actuation blister with device 1 inh inhalation Q24H Qty: 60 2RF Discontinued atorvastatin 10 mg tablet 10 mg PO DAILY Qty: 30 2RF Other Ambulatory Orders: MCT/Event Monitor 30 Days (Routine) Timeframe: 1 Day Facility: [facility] - Location: Radiology Ordered By: Corrie Desouza Referrals: Prem Lerma FNP-C [Primary Care Provider] - Discharge Diet: Cardiac Discharge Activity: Resume usual activity Patient Instructions: Opioid Safety Activity Restrictions/Additional Instructions: Appointment made for 30 day event monitor on SaturdayJune 01 at 3pm. Please arrive to [facility] 15 minutes prior to appointment. Coding Level of Care Code Acute Code for Chg Fwd Diagnoses Essential (primary) hypertension I10 Dehydration E86.0 Influenza A J10.1 Right pontine stroke I63.50 Altered mental state R41.82 COPD (chronic obstructive pulmonary disease) J44.9 COPD exacerbation J44.1 Documented by User: Corrie Desouza MD 05/28/24 12:10 Diagnoses at Discharge Discharge Diagnosis (1) Essential (primary) hypertension: Status: Chronic (2) Dehydration: Status: Acute (3) Influenza A: Status: Acute (4) Right pontine stroke: Status: Acute (5) Altered mental state: Status: Acute (6) COPD (chronic obstructive pulmonary disease): Status: Chronic (7) COPD exacerbation: Status: Acute Reason for Visit Reason for Visit: WEAKNESS Hospital Course Hospital Course Scott Silva is an 83-year-old with PMHx of COPD who presented to ER on 05/24 with complaints that his legs stopped the night before. He also has a history of a chronic cough and noticed it had worsened with occasional chest pain after coughing. Patient was tested positive for Influenza A and was started on Tamiflu 75mg BID. Signs of mild COPD exacerbation triggered by acute viral illness were noticed and he was started on duoneb and budenoside along with azithromycin 500mg po daily. CXR showed no obvious consolidation. Patient has AMS and there were concerns for potential aspiration and patient was placed on dysphagia diet until he became more alert. Patient was clinically dehydrated and placed on D5NS @ 75 cc/hr. ABG was reviewed and showed no signs of hypoxia or hypercapnia. CT head showed no acute intracranial abnormality. 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 Neurology was consulted. Patient continued aspirin and plavix was started on 05/26. heparin 5000 q12h for DVT prophylaxis. Carotid duplex was recommended and showed < 50% stenosis in right and left ICA with moderate atheromatous plaques. Normal anterograde doppler flow in both left and right vertebral arteries. Patient agreed with rehab for strengthening. Physical Exam Urinary Catheter Management: Parrish: Cath Placed During This Visit: yes Discharge Plan Discharge Patient Disposition: Home Condition: Stable Prescriptions: New pantoprazole 40 mg Tablet,Delayed Release (Dr/Ec) 40 mg PO DAILY Qty: 30 0RF hydralazine 25 mg Tablet 25 mg PO TID Qty: 90 0RF clopidogrel 75 mg Tablet 75 mg PO DAILY Qty: 30 0RF atorvastatin 40 mg Tablet 80 mg PO DAILY Qty: 30 0RF Continued (DME) DME: Walker Unit See Rx Instructions .ROUTE .MEDSUPPLY Qty: 1 0RF Rx Instructions: Code E0143 and E0156 walker 4 wheels and seat aspirin [Adult Low Dose Aspirin] 81 mg tablet,delayed release (DR/EC) 81 mg PO DAILY ergocalciferol (vitamin D2) 1,250 mcg (50,000 unit) capsule 1,250 mcg PO .weekly Qty: 4 2RF duloxetine [Cymbalta] 60 mg capsule,delayed release(DR/EC) 60 mg PO BID Qty: 60 2RF gabapentin 100 mg capsule 100 mg PO BID Qty: 60 2RF magnesium oxide 400 mg magnesium capsule 400 mg PO BID Qty: 60 2RF metoprolol tartrate 25 mg tablet 25 mg PO BID@0900,2100 Qty: 60 2RF Anoro Ellipta 62.5-25 mcg/actuation blister with device 1 inh inhalation Q24H Qty: 60 2RF Discontinued atorvastatin 10 mg tablet 10 mg PO DAILY Qty: 30 2RF Other Ambulatory Orders: MCT/Event Monitor 30 Days (Routine) Timeframe: 1 Day Facility: [facility] - Location: Radiology Ordered By: Corrie Desouza Referrals: Prem Lerma FNP-C [Primary Care Provider] - Discharge Diet: Cardiac Discharge Activity: Resume usual activity Patient Instructions: Opioid Safety Activity Restrictions/Additional Instructions: Appointment made for 30 day event monitor on SaturdayJune 01 at 3pm. Please arrive to [facility] 15 minutes prior to appointment. Discharge Attestations Time Spent in Discharge Care*: greater than 30 min Quality Metrics Clinical Quality Measures [ No reported AMI, CVA or VTE this stay] Coding Level of Care Code Acute Code for Chg Fwd Diagnoses Essential (primary) hypertension I10 Dehydration E86.0 Influenza A J10.1 Right pontine stroke I63.50 Altered mental state R41.82 COPD (chronic obstructive pulmonary disease) J44.9 COPD exacerbation J44.1
[2024-05-28] MEDS: oseltamivir phosphate 30 mg Capsule PO ×2 (09:49→18:19)
[2024-05-28] MEDS: pantoprazole DR 40 mg Tablet PO (09:49)
[2024-05-28] MEDS: metoprolol tartrate 25 mg Tablet PO ×2 (09:49→21:17)
[2024-05-28] MEDS: duloxetine 60 mg Capsule PO ×2 (09:49→18:19)
[2024-05-28] MEDS: heparin 5,000 unit/mL INJ 1 mL 5000 UNIT SUBCUT ×2 (09:49→21:17)
[2024-05-28] MEDS: hyDRALAzine 25 mg Tablet PO ×3 (09:49→21:17)
[2024-05-28] MEDS: atorvastatin 40 mg Tablet 80 MG PO (09:49)
[2024-05-28] MEDS: aspirin 81 mg EC Tablet PO (09:49)
[2024-05-28] MEDS: clopidogrel 75 mg Tablet PO (09:49)
--- NOTE | 2024-05-28 10:22 | PC.NURSE ---
report received from Jackie, assumed care of patient at this time.
--- NOTE | 2024-05-28 10:51 | PC.NURSE ---
chest pain coordinator rounds at 1015- patient pleasantly confused, no family/caregiver at bedside, put stroke education book in patient's belonging bag to send home.
--- NOTE | 2024-05-28 11:40 | P.PN_ITS ---
Subjective 2 Subjective: Seen this morning. Patient did have a fever 101.5 overnight. There is a lot of sediment in his urinary catheter. Urine visibly looks possibly infected. He is sitting up in chair. Somewhat mild slurred speech present since admission. Awaiting rehab placement. Vitals/I&O/Wt Last Vital Signs Temp 98.1 F 05/28/24 08:00 Pulse 66 05/28/24 08:00 Resp 16 05/28/24 08:00 BP 155/83 05/28/24 08:00 Pulse Ox 97 05/28/24 08:00 O2 Del Method Room Air 05/28/24 08:00 O2 Flow Rate 0 05/26/24 08:00 05/27/24 05/28/24 05/28/24 22:59 06:59 14:59 Intake Total 360 / 1200 300 / 1500 Output Total 800 / 800 150 / 950 Balance -440 / 400 150 / 550 Weight last 48 hrs Weight 66.315 kg Weight 67.812 kg Physical Exam 2 Const: COMMON NORMALS: no acute distress and patient oriented x3 Resp: COMMON NORMALS: normal respiratory effort and clear to auscultation bilaterally AUSCULTATION: clear to auscultation bilaterally Cardio: COMMON NORMALS: regular rate, regular rhythm, S1 normal heart sound present, S2 normal heart sound present and No murmurs present (Cardio) RATE: regular rate RHYTHM: regular rhythm HEART SOUNDS: S1 normal heart sound present and S2 normal heart sound present Neuro: COMMON NORMALS: patient oriented x3 OTHER: Able to move all 4 extremities. No drift noted. Cranial nerves intact. Urinary Catheter Management: Parrish: Cath Placed During This Visit: yes Reason for Continuing Indwelling Catheter: Accurate Measurement of Urinary Output in Critically Ill Patients Urinary Catheter Date of Insertion: 05/26/24 Urinary Catheter Time of Insertion: 10:58 Data 05/28/24 06:28 05/28/24 06:28 A&P Assessment and plan (1) Essential (primary) hypertension: (2) Dehydration: (3) Influenza A: (4) Right pontine stroke: (5) Altered mental state: (6) COPD (chronic obstructive pulmonary disease): (7) COPD exacerbation: Plan (1) Essential (primary) hypertension: (2) Influenza A: (3) Generalized muscle weakness: (4) Lumbar disc disease with radiculopathy: (5) DDD (degenerative disc disease), lumbar: Qualifiers: Disc-related pain type: discogenic back pain and lower extremity pain Q ualified Code(s): M51.362 - Other intervertebral disc degeneration, lumbar region with discogenic back pain and lower extremity pain (6) COPD (chronic obstructive pulmonary disease): (7) Altered mental state: Plan (1) Influenza A: influenza A + started Tamiflu 75mg BID (2) COPD exacerbation: Mild COPD exacerbation triggered by acute viral illness. Patient has some coarse crackles which clear after a bout of cough, likley post tussive clearing Start duoneb and budesonide scheduled inhalation Holding off on steroids for now No obvious consolidation on CXR Azithromycin 500mg po daily Potentially may have aspirated given his altered mentation, place on dysphagia diet until more alert (3) Altered mental state: appears lethargic, slow to respond , speech appears slurred, unknown baseline Lives alone reportedly with aide checking in on him ABG requested, reveiwed- no signs of hypoxia or hypercapnea on ABG check CT head to evaluate for stroke. CT head showed no acute intracranial abnormality. 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 (4) Dehydration: clinically dehydrated, disheveled D5NS @ 75 cc/hr , watch for signs of fluid overload Creatinine trending down from 1.7 (05/24) to 1.6 (05/25) to 1.5 this morning (05/26) Incidentally noted blood at urethral meatus : likely from traumatic straight cath, patient has voided clear urine afterwards, monitor for now DVT ppx: heparin 5000 q12h Full code 05/25/2024 CT head negative for stroke. Lives alone at home. Order occupational therapy assessment today. There is a report of patient getting diagnosed with dementia recently. We will have to assess if he is safe to go home alone at this time. Caregiver is not present 05/11. Check speech therapy evaluation. ? I will check MRI brain Continue normal saline 75 cc/h. Creatinine 1.6 which is at his baseline. 05/26/2024 CT head negative for stroke MRI head shows evidence of acute right pontine non-hemorrhagic infarct and chronic white matter disease. Continue aspirin. Started Plavix Check speech therapy evaluation. Continue normal saline 75 cc/h Creatinine 1.5 this morning down from 1.6 yesterday. Calcium 7.8 this morning trending down from 8.6 (05/24) and 7.9 yesterday (05/25) Potassium 3.4 this morning trending down from 4.4 (05/24) and 4.1 yesterday (05/25) 05/27/2024 - Check speech therapy evaluation.?Dysphagia level 4 extremely thick pur?ed diet. - Aspirin 81 mg p.o. every morning with food. - Continue Plavix 75 mg p.o. every morning with food. - Neurology following Recommended Carotid duplex study to assess for carotid or vertebral artery stenosis. Pending.?Negative Recommend obtaining 2D echocardiogram to assess for embolic source for stroke.?Negative Recommend cardiac telemetry monitoring to assess for cardiac arrhythmia.?Will need event monitor at discharge. Agree with plans for rehab for strengthening. Patient is referred to inpatient rehab at this time. 05/28/2024 Continue dysphagia level 5 diet. He was advanced yesterday. Continue aspirin Plavix He did have a fever overnight one 1.7. I do suspect urine infection possibly. Will remove Parrish catheter today. Check urine culture, blood culture, sputum culture Gram stain Has been reported inpatient rehab Continue azithromycin. Add ceftriaxone PDMP PDMP Reviewed: Not Reviewed Attestations 2 Medical Necessity Statement*: Awaiting placement to rehab. Diagnoses Essential (primary) hypertension I10 Dehydration E86.0 Influenza A J10.1 Right pontine stroke I63.50 Altered mental state R41.82 COPD (chronic obstructive pulmonary disease) J44.9 COPD exacerbation J44.1
[2024-05-28] MEDS: cefTRIAXone 1,000 mg SDV 1000 MG IVP (12:47)
[2024-05-28 13:55] LABS: Bilirubin Urine 2+ (Negative); Blood Urine 3+ (Negative); Glucose Urine UA Norm (Normal); Ketones Urine Negative (Negative); Leukocyte Esterase Urine 1+ (Negative); Nitrate Urine Positive (Negative); Protein Urine 3+ (Negative); UA Manual Slide Review YES; Urine Appearance Cloudy (CLEAR); Urine Color Dark Yellow (Yellow); Urobilinogen Urine 1 mg/dL (Negative); pH Urine 5 (5-7)
[2024-05-28 13:56] LABS: Add Urine Culture? Yes; Bacteria Urine 2+ /hpf; RBC Urine >100 /hpf (0-2); Squamous Epithelial Cell Urine RARE /hpf (0-5)
[2024-05-28] MEDS: azithromycin 250 mg Tablet 500 MG PO (18:19)
[2024-05-29] VITALS (14 sets, daily range): BP systolic 155–190; BP diastolic 68–84; PULSE 71–82; RESP 16–20; TEMP 36.4–37.4; O2SAT 96–99
[2024-05-29] MEDS: ipratropium-albuterol 3 mL Neb INHALATION ×4 (02:47→20:36)
[2024-05-29 05:10] LABS: Basophils % 0.2 %; Eosinophils # 0.1 10^3/uL (0.0-0.8); Eosinophils % 0.8 %; Hematocrit 33.3 % (37-53); Lymphocytes % 16.1 %; Mean Corpuscular HGB Conc 33.3 g/dL (30-55); Mean Platelet Volume 10.9 fL (7.4-10.4); Monocytes # 0.4 10^3/uL (0.2-0.9); Monocytes % 7.1 %; Neutrophils % 75.3 %; Nucleated Red Blood Cells % 0 %; Platelet Count 151 10^3/cmm (157-399); Red Blood Count 3.47 10^6/uL (3.85-5.65); Red Cell Distribution Width 12.9 % (12.1-15.1); White Blood Count 6.23 10^3/uL (3.29-11.43)
[2024-05-29 05:48] LABS: Anion Gap 18.4 (5-19); Blood Urea Nitrogen 23 mg/dL (8-23); Calcium 8.2 mg/dL (8.5-10.5); Carbon Dioxide 21 mmol/L (22-29); Chloride 101 mmol/L (98-107); Creatinine Clr Calc Pharmacy 38.4425; Glucose 98 mg/dL (65-115); Osmolality Calculated 288 mOsm/kg (285-295); Potassium 3.4 mmol/L (3.5-5.1); Sodium 137 mmol/L (136-145)
[2024-05-29] MEDS: budesonide 0.5 mg/2 mL Neb INHALATION ×2 (07:41→20:35)
[2024-05-29] MEDS: clopidogrel 75 mg Tablet PO (10:03)
[2024-05-29] MEDS: oseltamivir phosphate 30 mg Capsule PO ×2 (10:03→18:12)
[2024-05-29] MEDS: aspirin 81 mg EC Tablet PO (10:03)
[2024-05-29] MEDS: duloxetine 60 mg Capsule PO ×2 (10:03→18:12)
[2024-05-29] MEDS: atorvastatin 40 mg Tablet 80 MG PO (10:03)
[2024-05-29] MEDS: pantoprazole DR 40 mg Tablet PO (10:04)
[2024-05-29] MEDS: potassium chloride ER 20 mEq Tablet 40 MEQ PO (10:04)
[2024-05-29] MEDS: hyDRALAzine 25 mg Tablet PO ×3 (10:04→20:09)
[2024-05-29] MEDS: heparin 5,000 unit/mL INJ 1 mL 5000 UNIT SUBCUT ×2 (10:04→20:09)
[2024-05-29] MEDS: metoprolol tartrate 25 mg Tablet PO ×2 (10:28→20:09)
[2024-05-29] MEDS: cefTRIAXone 1,000 mg SDV 1000 MG IVP (11:42)
--- NOTE | 2024-05-29 12:50 | P.PN_ITS ---
Subjective 2 Subjective: Seen this morning. Patient is awaiting placement to rehab. Vitals/I&O/Wt Last Vital Signs Temp 99.3 F 05/29/24 12:00 Pulse 80 05/29/24 12:00 Resp 16 05/29/24 12:00 BP 162/75 05/29/24 12:00 Pulse Ox 98 05/29/24 12:00 O2 Del Method Room Air 05/29/24 12:00 O2 Flow Rate 0 05/26/24 08:00 05/28/24 05/29/24 05/29/24 22:59 06:59 14:59 Intake Total 500 / 740 0 / 740 236 / 236 Output Total 300 / 300 450 / 750 Balance 200 / 440 -450 / -10 236 / 236 Weight last 48 hrs Weight 65.045 kg Weight 66.315 kg Physical Exam 2 Const: COMMON NORMALS: no acute distress and patient oriented x3 Resp: COMMON NORMALS: normal respiratory effort and clear to auscultation bilaterally AUSCULTATION: clear to auscultation bilaterally Cardio: COMMON NORMALS: regular rate, regular rhythm, S1 normal heart sound present, S2 normal heart sound present and No murmurs present (Cardio) RATE: regular rate RHYTHM: regular rhythm HEART SOUNDS: S1 normal heart sound present and S2 normal heart sound present Neuro: COMMON NORMALS: patient oriented x3 OTHER: Able to move all 4 extremities. No drift noted. Cranial nerves intact. Urinary Catheter Management: Parrish: Cath Placed During This Visit: yes, but has since been removed by the nurse Reason for Continuing Indwelling Catheter: Decision to DC Catheter Urinary Catheter Date of Insertion: 05/26/24 Urinary Catheter Time of Insertion: 10:58 Date Urinary Catheter Removed: 05/28/24 Time Urinary Catheter Discontinued: 18:27 Data 05/29/24 04:53 05/29/24 04:53 Micro: Microbiology 05/28/24 12:25 Blood Culture - Preliminary Blood NEGATIVE TO DATE 05/28/24 12:20 Blood Culture - Preliminary Blood NEGATIVE TO DATE A&P Assessment and plan (1) Essential (primary) hypertension: (2) Dehydration: (3) Influenza A: (4) Right pontine stroke: (5) Altered mental state: (6) COPD (chronic obstructive pulmonary disease): (7) COPD exacerbation: Plan (1) Essential (primary) hypertension: (2) Influenza A: (3) Generalized muscle weakness: (4) Lumbar disc disease with radiculopathy: (5) DDD (degenerative disc disease), lumbar: Qualifiers: Disc-related pain type: discogenic back pain and lower extremity pain Q ualified Code(s): M51.362 - Other intervertebral disc degeneration, lumbar region with discogenic back pain and lower extremity pain (6) COPD (chronic obstructive pulmonary disease): (7) Altered mental state: Plan (1) Influenza A: influenza A + started Tamiflu 75mg BID (2) COPD exacerbation: Mild COPD exacerbation triggered by acute viral illness. Patient has some coarse crackles which clear after a bout of cough, likley post tussive clearing Start duoneb and budesonide scheduled inhalation Holding off on steroids for now No obvious consolidation on CXR Azithromycin 500mg po daily Potentially may have aspirated given his altered mentation, place on dysphagia diet until more alert (3) Altered mental state: appears lethargic, slow to respond , speech appears slurred, unknown baseline Lives alone reportedly with aide checking in on him ABG requested, reveiwed- no signs of hypoxia or hypercapnea on ABG check CT head to evaluate for stroke. CT head showed no acute intracranial abnormality. 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 (4) Dehydration: clinically dehydrated, disheveled D5NS @ 75 cc/hr , watch for signs of fluid overload Creatinine trending down from 1.7 (05/24) to 1.6 (05/25) to 1.5 this morning (05/26) Incidentally noted blood at urethral meatus : likely from traumatic straight cath, patient has voided clear urine afterwards, monitor for now DVT ppx: heparin 5000 q12h Full code 05/25/2024 CT head negative for stroke. Lives alone at home. Order occupational therapy assessment today. There is a report of patient getting diagnosed with dementia recently. We will have to assess if he is safe to go home alone at this time. Caregiver is not present 05/11. Check speech therapy evaluation. ? I will check MRI brain Continue normal saline 75 cc/h. Creatinine 1.6 which is at his baseline. 05/26/2024 CT head negative for stroke MRI head shows evidence of acute right pontine non-hemorrhagic infarct and chronic white matter disease. Continue aspirin. Started Plavix Check speech therapy evaluation. Continue normal saline 75 cc/h Creatinine 1.5 this morning down from 1.6 yesterday. Calcium 7.8 this morning trending down from 8.6 (05/24) and 7.9 yesterday (05/25) Potassium 3.4 this morning trending down from 4.4 (05/24) and 4.1 yesterday (05/25) 05/27/2024 - Check speech therapy evaluation.?Dysphagia level 4 extremely thick pur?ed diet. - Aspirin 81 mg p.o. every morning with food. - Continue Plavix 75 mg p.o. every morning with food. - Neurology following Recommended Carotid duplex study to assess for carotid or vertebral artery stenosis. Pending.?Negative Recommend obtaining 2D echocardiogram to assess for embolic source for stroke.?Negative Recommend cardiac telemetry monitoring to assess for cardiac arrhythmia.?Will need event monitor at discharge. Agree with plans for rehab for strengthening. Patient is referred to inpatient rehab at this time. 05/28/2024 Continue dysphagia level 5 diet. He was advanced yesterday. Continue aspirin Plavix He did have a fever overnight one 1.7. I do suspect urine infection possibly. Will remove Parrish catheter today. Check urine culture, blood culture, sputum culture Gram stain Has been reported inpatient rehab Continue azithromycin. Add ceftriaxone 05/29/2024 inpatient rehab maybe accepting patient however waiting insurance authorization continue aspirin, plavix, afebrile overnight UA positive and suggestive of UTI Urine culture pending blood cutlure, sputum culture pending continue ceftriaxone and azithromycin PDMP PDMP Reviewed: Not Reviewed Attestations 2 Medical Necessity Statement*: Awaiting placement to rehab. Diagnoses Essential (primary) hypertension I10 Dehydration E86.0 Influenza A J10.1 Right pontine stroke I63.50 Altered mental state R41.82 COPD (chronic obstructive pulmonary disease) J44.9 COPD exacerbation J44.1
[2024-05-29] MEDS: azithromycin 250 mg Tablet 500 MG PO (18:12)
[2024-05-30] VITALS (10 sets, daily range): BP systolic 138–178; BP diastolic 60–79; PULSE 70–87; RESP 16–20; TEMP 36.6–36.8; O2SAT 94–100
[2024-05-30 05:28] LABS: Basophils % 0.1 %; Eosinophils # 0.1 10^3/uL (0.0-0.8); Eosinophils % 0.9 %; Hematocrit 34.7 % (37-53); Lymphocytes # 0.6 10^3/uL (0.8-4.8); Lymphocytes % 7.9 %; Mean Corpuscular HGB Conc 33.1 g/dL (30-55); Mean Corpuscular Hemoglobin 32.5 pg (27-33); Mean Platelet Volume 10.9 fL (7.4-10.4); Monocytes # 0.6 10^3/uL (0.2-0.9); Monocytes % 7.2 %; Neutrophils # 6.62 10^3/uL (1.8-7.7); Neutrophils % 83.5 %; Nucleated Red Blood Cells % 0 %; Platelet Count 178 10^3/cmm (157-399); Red Blood Count 3.54 10^6/uL (3.85-5.65); Red Cell Distribution Width 12.8 % (12.1-15.1); White Blood Count 7.93 10^3/uL (3.29-11.43)
[2024-05-30 05:47] LABS: Anion Gap 16.2 (5-19); Blood Urea Nitrogen 23 mg/dL (8-23); Calcium 8.5 mg/dL (8.5-10.5); Carbon Dioxide 22 mmol/L (22-29); Chloride 100 mmol/L (98-107); Creatinine Clr Calc Pharmacy 39.2603; Glucose 92 mg/dL (65-115); Osmolality Calculated 281 mOsm/kg (285-295); Potassium 4.2 mmol/L (3.5-5.1); Sodium 134 mmol/L (136-145)
[2024-05-30] MEDS: budesonide 0.5 mg/2 mL Neb INHALATION ×2 (07:49→21:15)
[2024-05-30] MEDS: ipratropium-albuterol 3 mL Neb INHALATION ×3 (07:49→21:15)
[2024-05-30] MEDS: clopidogrel 75 mg Tablet PO (09:09)
[2024-05-30] MEDS: amlodipine 10 mg Tablet PO (09:09)
[2024-05-30] MEDS: metoprolol tartrate 25 mg Tablet PO ×2 (09:09→21:04)
[2024-05-30] MEDS: atorvastatin 40 mg Tablet 80 MG PO (09:09)
[2024-05-30] MEDS: pantoprazole DR 40 mg Tablet PO (09:09)
[2024-05-30] MEDS: aspirin 81 mg EC Tablet PO (09:09)
[2024-05-30] MEDS: heparin 5,000 unit/mL INJ 1 mL 5000 UNIT SUBCUT ×2 (09:10→21:05)
[2024-05-30] MEDS: duloxetine 60 mg Capsule PO ×2 (09:10→17:50)
[2024-05-30] MEDS: cefTRIAXone 1,000 mg SDV 1000 MG IVP (11:42)
--- NOTE | 2024-05-30 14:28 | P.PN_ITS ---
Vitals/I&O/Wt Last Vital Signs Temp 98.1 F 05/30/24 12:00 Pulse 74 05/30/24 13:49 Resp 16 05/30/24 13:42 BP 145/69 05/30/24 12:00 Pulse Ox 98 05/30/24 13:42 O2 Del Method Room Air 05/30/24 13:42 O2 Flow Rate 99 05/29/24 20:36 05/29/24 05/30/24 05/30/24 22:59 06:59 14:59 Intake Total 240 / 476 Output Total 750 / 750 Balance 240 / 476 -750 / -274 Weight last 48 hrs Weight 68.538 kg Weight 65.045 kg Physical Exam 2 Const: COMMON NORMALS: no acute distress and patient oriented x3 Resp: COMMON NORMALS: normal respiratory effort and clear to auscultation bilaterally AUSCULTATION: clear to auscultation bilaterally Cardio: COMMON NORMALS: regular rate, regular rhythm, S1 normal heart sound present, S2 normal heart sound present and No murmurs present (Cardio) RATE: regular rate RHYTHM: regular rhythm HEART SOUNDS: S1 normal heart sound present and S2 normal heart sound present Neuro: COMMON NORMALS: patient oriented x3 OTHER: Able to move all 4 extremities. No drift noted. Cranial nerves intact. Urinary Catheter Management: Parrish: Cath Placed During This Visit: yes, but has since been removed by the nurse Reason for Continuing Indwelling Catheter: Acute Urinary Retention or Obstruction Urinary Catheter Date of Insertion: 05/29/24 Urinary Catheter Time of Insertion: 16:45 Date Urinary Catheter Removed: 05/28/24 Time Urinary Catheter Discontinued: 18:27 Data 05/30/24 04:02 05/30/24 04:02 Micro: Microbiology 05/28/24 12:51 Urine Culture - Preliminary Urine Catheterized 05/28/24 12:25 Blood Culture - Preliminary Blood NEGATIVE TO DATE 05/28/24 12:20 Blood Culture - Preliminary Blood NEGATIVE TO DATE A&P Assessment and plan (1) Essential (primary) hypertension: (2) Dehydration: (3) Influenza A: (4) Right pontine stroke: (5) Altered mental state: (6) COPD (chronic obstructive pulmonary disease): (7) COPD exacerbation: Plan (1) Essential (primary) hypertension: (2) Influenza A: (3) Generalized muscle weakness: (4) Lumbar disc disease with radiculopathy: (5) DDD (degenerative disc disease), lumbar: Qualifiers: Disc-related pain type: discogenic back pain and lower extremity pain Q ualified Code(s): M51.362 - Other intervertebral disc degeneration, lumbar region with discogenic back pain and lower extremity pain (6) COPD (chronic obstructive pulmonary disease): (7) Altered mental state: Plan (1) Influenza A: influenza A + started Tamiflu 75mg BID (2) COPD exacerbation: Mild COPD exacerbation triggered by acute viral illness. Patient has some coarse crackles which clear after a bout of cough, likley post tussive clearing Start duoneb and budesonide scheduled inhalation Holding off on steroids for now No obvious consolidation on CXR Azithromycin 500mg po daily Potentially may have aspirated given his altered mentation, place on dysphagia diet until more alert (3) Altered mental state: appears lethargic, slow to respond , speech appears slurred, unknown baseline Lives alone reportedly with aide checking in on him ABG requested, reveiwed- no signs of hypoxia or hypercapnea on ABG check CT head to evaluate for stroke. CT head showed no acute intracranial abnormality. 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 (4) Dehydration: clinically dehydrated, disheveled D5NS @ 75 cc/hr , watch for signs of fluid overload Creatinine trending down from 1.7 (05/24) to 1.6 (05/25) to 1.5 this morning (05/26) Incidentally noted blood at urethral meatus : likely from traumatic straight cath, patient has voided clear urine afterwards, monitor for now DVT ppx: heparin 5000 q12h Full code 05/25/2024 CT head negative for stroke. Lives alone at home. Order occupational therapy assessment today. There is a report of patient getting diagnosed with dementia recently. We will have to assess if he is safe to go home alone at this time. Caregiver is not present 05/11. Check speech therapy evaluation. ? I will check MRI brain Continue normal saline 75 cc/h. Creatinine 1.6 which is at his baseline. 05/26/2024 CT head negative for stroke MRI head shows evidence of acute right pontine non-hemorrhagic infarct and chronic white matter disease. Continue aspirin. Started Plavix Check speech therapy evaluation. Continue normal saline 75 cc/h Creatinine 1.5 this morning down from 1.6 yesterday. Calcium 7.8 this morning trending down from 8.6 (05/24) and 7.9 yesterday (05/25) Potassium 3.4 this morning trending down from 4.4 (05/24) and 4.1 yesterday (05/25) 05/27/2024 - Check speech therapy evaluation.?Dysphagia level 4 extremely thick pur?ed diet. - Aspirin 81 mg p.o. every morning with food. - Continue Plavix 75 mg p.o. every morning with food. - Neurology following Recommended Carotid duplex study to assess for carotid or vertebral artery stenosis. Pending.?Negative Recommend obtaining 2D echocardiogram to assess for embolic source for stroke.?Negative Recommend cardiac telemetry monitoring to assess for cardiac arrhythmia.?Will need event monitor at discharge. Agree with plans for rehab for strengthening. Patient is referred to inpatient rehab at this time. 05/28/2024 Continue dysphagia level 5 diet. He was advanced yesterday. Continue aspirin Plavix He did have a fever overnight one 1.7. I do suspect urine infection possibly. Will remove Parrish catheter today. Check urine culture, blood culture, sputum culture Gram stain Has been reported inpatient rehab Continue azithromycin. Add ceftriaxone 05/29/2024 inpatient rehab maybe accepting patient however waiting insurance authorization continue aspirin, plavix, afebrile overnight UA positive and suggestive of UTI Urine culture pending blood cutlure, sputum culture pending continue ceftriaxone and azithromycin 05/30/2024 inpatient rehab maybe accepting patient however waiting insurance authorization Continue ceftriaxone for UTI. Urine culture pending this time. Blood cultures pending but negative to date. Sputum culture not collected secondary to no expectoration. Stop azithromycin. Continue ceftriaxone for UTI at this time. Will add amlodipine 10 daily and titrate hydralazine up to 50 3 times daily for high blood pressure and continue metoprolol to tartrate 25 twice daily. Stop Tamiflu. Continue Parrish catheter for urinary retention. We did attempt a voiding trial during hospitalization however patient requires Parrish to go back in. It was replaced yesterday. PDMP PDMP Reviewed: Not Reviewed Attestations 2 Medical Necessity Statement*: Awaiting placement to rehab. Diagnoses Essential (primary) hypertension I10 Dehydration E86.0 Influenza A J10.1 Right pontine stroke I63.50 Altered mental state R41.82 COPD (chronic obstructive pulmonary disease) J44.9 COPD exacerbation J44.1
[2024-05-30] MEDS: hyDRALAzine 25 mg Tablet 50 MG PO ×2 (14:44→21:05)
[2024-05-31] VITALS (16 sets, daily range): BP systolic 115–163; BP diastolic 55–76; PULSE 76–88; RESP 16–22; TEMP 36.5–37.2; O2SAT 94–97
[2024-05-31] MEDS: ipratropium-albuterol 3 mL Neb INHALATION ×4 (03:05→21:44)
[2024-05-31 05:34] LABS: Basophils % 0.1 %; Eosinophils # 0.1 10^3/uL (0.0-0.8); Eosinophils % 0.7 %; Hematocrit 33.2 % (37-53); Lymphocytes # 0.9 10^3/uL (0.8-4.8); Lymphocytes % 11.6 %; Mean Corpuscular HGB Conc 33.1 g/dL (30-55); Mean Corpuscular Hemoglobin 32.4 pg (27-33); Mean Corpuscular Volume 97.6 fl (82-101); Mean Platelet Volume 11.1 fL (7.4-10.4); Monocytes # 0.6 10^3/uL (0.2-0.9); Monocytes % 8.2 %; Neutrophils # 6.05 10^3/uL (1.8-7.7); Neutrophils % 78.7 %; Nucleated Red Blood Cells % 0 %; Platelet Count 232 10^3/cmm (157-399); Red Cell Distribution Width 12.8 % (12.1-15.1); White Blood Count 7.68 10^3/uL (3.29-11.43)
[2024-05-31 05:50] LABS: Anion Gap 17.5 (5-19); Blood Urea Nitrogen 24 mg/dL (8-23); Calcium 8.2 mg/dL (8.5-10.5); Carbon Dioxide 20 mmol/L (22-29); Chloride 100 mmol/L (98-107); Creatinine Clr Calc Pharmacy 39.1753; Glucose 91 mg/dL (65-115); Osmolality Calculated 282 mOsm/kg (285-295); Potassium 3.5 mmol/L (3.5-5.1); Sodium 134 mmol/L (136-145)
[2024-05-31] MEDS: budesonide 0.5 mg/2 mL Neb INHALATION ×2 (07:31→21:44)
[2024-05-31] MEDS: atorvastatin 40 mg Tablet 80 MG PO (08:17)
[2024-05-31] MEDS: pantoprazole DR 40 mg Tablet PO (08:18)
[2024-05-31] MEDS: hyDRALAzine 25 mg Tablet 50 MG PO ×3 (08:18→21:35)
[2024-05-31] MEDS: duloxetine 60 mg Capsule PO ×2 (08:19→17:18)
[2024-05-31] MEDS: metoprolol tartrate 25 mg Tablet PO ×2 (08:19→21:35)
[2024-05-31] MEDS: clopidogrel 75 mg Tablet PO (08:19)
[2024-05-31] MEDS: aspirin 81 mg EC Tablet PO (08:20)
[2024-05-31] MEDS: heparin 5,000 unit/mL INJ 1 mL 5000 UNIT SUBCUT ×2 (08:20→21:35)
[2024-05-31] MEDS: amlodipine 10 mg Tablet PO (08:20)
[2024-05-31] MEDS: cefTRIAXone 1,000 mg SDV 1000 MG IVP (12:31)
--- NOTE | 2024-05-31 15:09 | P.PN_ITS ---
Subjective 2 Subjective: Seen this morning. Awaiting placement. Vitals/I&O/Wt Last Vital Signs Temp 98.3 F 05/31/24 12:00 Pulse 79 05/31/24 13:46 Resp 16 05/31/24 13:39 BP 134/65 05/31/24 12:00 Pulse Ox 96 05/31/24 13:39 O2 Del Method Room Air 05/31/24 13:39 O2 Flow Rate 99 05/29/24 20:36 05/31/24 05/31/24 05/31/24 06:59 14:59 22:59 Intake Total 240 / 240 Output Total 300 / 575 Balance -300 / -575 240 / 240 Weight last 48 hrs Weight 68.175 kg Weight 68.538 kg Physical Exam 2 Const: COMMON NORMALS: no acute distress and patient oriented x3 Resp: COMMON NORMALS: normal respiratory effort and clear to auscultation bilaterally AUSCULTATION: clear to auscultation bilaterally Cardio: COMMON NORMALS: regular rate, regular rhythm, S1 normal heart sound present, S2 normal heart sound present and No murmurs present (Cardio) RATE: regular rate RHYTHM: regular rhythm HEART SOUNDS: S1 normal heart sound present and S2 normal heart sound present Neuro: COMMON NORMALS: patient oriented x3 OTHER: Able to move all 4 extremities. No drift noted. Cranial nerves intact. Urinary Catheter Management: Parrish: Cath Placed During This Visit: yes, but has since been removed by the nurse Reason for Continuing Indwelling Catheter: Acute Urinary Retention or Obstruction Urinary Catheter Date of Insertion: 05/29/24 Urinary Catheter Time of Insertion: 16:45 Date Urinary Catheter Removed: 05/28/24 Time Urinary Catheter Discontinued: 18:27 Data 05/31/24 04:22 05/31/24 04:22 Micro: Microbiology 05/28/24 12:51 Urine Culture - Final Urine Catheterized A&P Assessment and plan (1) Essential (primary) hypertension: (2) Dehydration: (3) Influenza A: (4) Right pontine stroke: (5) Altered mental state: (6) COPD (chronic obstructive pulmonary disease): (7) COPD exacerbation: Plan (1) Essential (primary) hypertension: (2) Influenza A: (3) Generalized muscle weakness: (4) Lumbar disc disease with radiculopathy: (5) DDD (degenerative disc disease), lumbar: Qualifiers: Disc-related pain type: discogenic back pain and lower extremity pain Q ualified Code(s): M51.362 - Other intervertebral disc degeneration, lumbar region with discogenic back pain and lower extremity pain (6) COPD (chronic obstructive pulmonary disease): (7) Altered mental state: Plan (1) Influenza A: influenza A + started Tamiflu 75mg BID (2) COPD exacerbation: Mild COPD exacerbation triggered by acute viral illness. Patient has some coarse crackles which clear after a bout of cough, likley post tussive clearing Start duoneb and budesonide scheduled inhalation Holding off on steroids for now No obvious consolidation on CXR Azithromycin 500mg po daily Potentially may have aspirated given his altered mentation, place on dysphagia diet until more alert (3) Altered mental state: appears lethargic, slow to respond , speech appears slurred, unknown baseline Lives alone reportedly with aide checking in on him ABG requested, reveiwed- no signs of hypoxia or hypercapnea on ABG check CT head to evaluate for stroke. CT head showed no acute intracranial abnormality. 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 (4) Dehydration: clinically dehydrated, disheveled D5NS @ 75 cc/hr , watch for signs of fluid overload Creatinine trending down from 1.7 (05/24) to 1.6 (05/25) to 1.5 this morning (05/26) Incidentally noted blood at urethral meatus : likely from traumatic straight cath, patient has voided clear urine afterwards, monitor for now DVT ppx: heparin 5000 q12h Full code 05/25/2024 CT head negative for stroke. Lives alone at home. Order occupational therapy assessment today. There is a report of patient getting diagnosed with dementia recently. We will have to assess if he is safe to go home alone at this time. Caregiver is not present 05/11. Check speech therapy evaluation. ? I will check MRI brain Continue normal saline 75 cc/h. Creatinine 1.6 which is at his baseline. 05/26/2024 CT head negative for stroke MRI head shows evidence of acute right pontine non-hemorrhagic infarct and chronic white matter disease. Continue aspirin. Started Plavix Check speech therapy evaluation. Continue normal saline 75 cc/h Creatinine 1.5 this morning down from 1.6 yesterday. Calcium 7.8 this morning trending down from 8.6 (05/24) and 7.9 yesterday (05/25) Potassium 3.4 this morning trending down from 4.4 (05/24) and 4.1 yesterday (05/25) 05/27/2024 - Check speech therapy evaluation.?Dysphagia level 4 extremely thick pur?ed diet. - Aspirin 81 mg p.o. every morning with food. - Continue Plavix 75 mg p.o. every morning with food. - Neurology following Recommended Carotid duplex study to assess for carotid or vertebral artery stenosis. Pending.?Negative Recommend obtaining 2D echocardiogram to assess for embolic source for stroke.?Negative Recommend cardiac telemetry monitoring to assess for cardiac arrhythmia.?Will need event monitor at discharge. Agree with plans for rehab for strengthening. Patient is referred to inpatient rehab at this time. 05/28/2024 Continue dysphagia level 5 diet. He was advanced yesterday. Continue aspirin Plavix He did have a fever overnight one 1.7. I do suspect urine infection possibly. Will remove Parrish catheter today. Check urine culture, blood culture, sputum culture Gram stain Has been reported inpatient rehab Continue azithromycin. Add ceftriaxone 05/29/2024 inpatient rehab maybe accepting patient however waiting insurance authorization continue aspirin, plavix, afebrile overnight UA positive and suggestive of UTI Urine culture pending blood cutlure, sputum culture pending continue ceftriaxone and azithromycin 05/30/2024 inpatient rehab maybe accepting patient however waiting insurance authorization Continue ceftriaxone for UTI. Urine culture pending this time. Blood cultures pending but negative to date. Sputum culture not collected secondary to no expectoration. Stop azithromycin. Continue ceftriaxone for UTI at this time. Will add amlodipine 10 daily and titrate hydralazine up to 50 3 times daily for high blood pressure and continue metoprolol to tartrate 25 twice daily. Stop Tamiflu. Continue Parrish catheter for urinary retention. We did attempt a voiding trial during hospitalization however patient requires Parrish to go back in. It was replaced yesterday. 05/31/2024 Awaiting placement to rehab. Urine culture is negative possibly due to being sterile since antibiotics were already ordered once culture was obtained. I would complete 7 days total. Continue amlodipine and hydralazine. Blood pressure better controlled at this time. Will need to continue Parrish catheter at discharge. I will add tamsulosin today. PDMP PDMP Reviewed: Not Reviewed Attestations 2 Medical Necessity Statement*: Awaiting placement to rehab. Diagnoses Essential (primary) hypertension I10 Dehydration E86.0 Influenza A J10.1 Right pontine stroke I63.50 Altered mental state R41.82 COPD (chronic obstructive pulmonary disease) J44.9 COPD exacerbation J44.1
[2024-05-31] MEDS: tamsulosin 0.4 mg Capsule PO (15:44)
[2024-06-01] VITALS (10 sets, daily range): BP systolic 114–133; BP diastolic 63–77; PULSE 78–91; RESP 16–22; TEMP 36.4–36.6; O2SAT 93–98
[2024-06-01] MEDS: ipratropium-albuterol 3 mL Neb INHALATION ×4 (02:52→21:12)
[2024-06-01 04:48] LABS: Anion Gap 17.7 (5-19); Blood Urea Nitrogen 28 mg/dL (8-23); Calcium 8.1 mg/dL (8.5-10.5); Carbon Dioxide 19 mmol/L (22-29); Chloride 102 mmol/L (98-107); Creatinine Clr Calc Pharmacy 39.1753; Glucose 108 mg/dL (65-115); Osmolality Calculated 286 mOsm/kg (285-295); Potassium 3.7 mmol/L (3.5-5.1); Sodium 135 mmol/L (136-145)
[2024-06-01] MEDS: atorvastatin 40 mg Tablet 80 MG PO (07:46)
[2024-06-01] MEDS: amlodipine 10 mg Tablet PO (07:47)
[2024-06-01] MEDS: tamsulosin 0.4 mg Capsule PO (07:47)
[2024-06-01] MEDS: benzonatate 100 mg Capsule PO (07:47)
[2024-06-01] MEDS: duloxetine 60 mg Capsule PO ×2 (07:47→16:57)
[2024-06-01] MEDS: pantoprazole DR 40 mg Tablet PO (07:47)
[2024-06-01] MEDS: hyDRALAzine 25 mg Tablet 50 MG PO ×3 (07:47→20:48)
[2024-06-01] MEDS: metoprolol tartrate 25 mg Tablet PO ×2 (07:47→20:48)
[2024-06-01] MEDS: heparin 5,000 unit/mL INJ 1 mL 5000 UNIT SUBCUT ×2 (07:48→20:48)
[2024-06-01] MEDS: aspirin 81 mg EC Tablet PO (07:48)
[2024-06-01] MEDS: clopidogrel 75 mg Tablet PO (07:48)
[2024-06-01] MEDS: budesonide 0.5 mg/2 mL Neb INHALATION ×2 (08:20→21:12)
[2024-06-01] MEDS: cefTRIAXone 1,000 mg SDV 1000 MG IVP (11:47)
[2024-06-01] MEDS: acetaminophen 325 mg Tablet 650 MG PO (17:38)
--- NOTE | 2024-06-01 17:59 | P.PN_ITS ---
Subjective 2 Subjective: No acute interim events. No new complaints. Medications: Reviewed: Yes Vitals/I&O/Wt Last Vital Signs Temp 97.5 F L 06/01/24 16:00 Pulse 82 06/01/24 16:00 Resp 18 06/01/24 16:00 BP 118/69 06/01/24 16:00 Pulse Ox 94 06/01/24 16:00 O2 Del Method Room Air 06/01/24 16:00 O2 Flow Rate 99 05/29/24 20:36 06/01/24 06/01/24 06/01/24 06:59 14:59 22:59 Intake Total 1720 / 1720 240 / 1960 Output Total 475 / 475 Balance -475 / 725 1720 / 1720 240 / 1960 Weight last 48 hrs Weight 65.227 kg Weight 68.175 kg Physical Exam 2 Narrative: General: No acute distress, AO x3, slurred speech however overall more alert and awake than on day of admission. HEENT: PERRLA, pupils bilaterally equal and reactive, pallors not present Chest: Normal vesicular breath sounds, no added sounds, equal good air entry bilaterally CVS: S1-S2 regular, no murmurs, no tachycardia, no gallops, no rubs Abdomen: Soft, nontender, no organomegaly, bowel sounds present Urinary Catheter Management: Parrish: Cath Placed During This Visit: yes, but has since been removed by the nurse Reason for Continuing Indwelling Catheter: Acute Urinary Retention or Obstruction Urinary Catheter Date of Insertion: 05/29/24 Urinary Catheter Time of Insertion: 16:45 Date Urinary Catheter Removed: 05/28/24 Time Urinary Catheter Discontinued: 18:27 Data 05/31/24 04:22 06/01/24 02:58 A&P Assessment and plan (1) Influenza A: influenza A + start Tamiflu 75mg BID (2) COPD exacerbation: Mild COPD exacerbation triggered by acute viral illness. Patient has some coarse crackles which clear after a bout of cough, likley post tussive clearing Start duoneb and budesonide scheduled inhalation Holding off on steroids for now No obvious consolidation on CXR Azithromycin 500mg po daily Potentially may have aspirated given his altered mentation , place on dysphagia diet until more alert (3) Altered mental state: appears lethargic, slow to respond , speech appears slurred, unknown baseline Lives alone reportedly with aide checking in on him ABG requested, reveiwed- no signs of hypoxia or hypercapnea on ABG check CT head to evaluate for stroke (4) Dehydration: clinically dehydrated, disheveled D5NS @ 75 cc/hr , watch for signs of fluid overload Plan Incidentally noted blood at urethral meatus : likely from traumatic straight cath, patient has voided clear urine afterwards, monitor for now DVT ppx: heparin 5000 q12h Full code 05/25/2024 CT head negative for stroke. Lives alone at home. Order occupational therapy assessment today. There is a report of patient getting diagnosed with dementia recently. We will have to assess if he is safe to go home alone at this time. Caregiver is not present 05/11. Check speech therapy evaluation. ? I will check MRI brain Continue normal saline 75 cc/h. Creatinine 1.6 which is at his baseline. 05/26/2024 CT head negative for stroke MRI head shows evidence of acute right pontine non-hemorrhagic infarct and chronic white matter disease. Continue aspirin. Started Plavix Check speech therapy evaluation. Continue normal saline 75 cc/h Creatinine 1.5 this morning down from 1.6 yesterday. Calcium 7.8 this morning trending down from 8.6 (05/24) and 7.9 yesterday (05/25) Potassium 3.4 this morning trending down from 4.4 (05/24) and 4.1 yesterday (05/25) 05/27/2024 - Check speech therapy evaluation.?Dysphagia level 4 extremely thick pur?ed diet. - Aspirin 81 mg p.o. every morning with food. - Continue Plavix 75 mg p.o. every morning with food. - Neurology following Recommended Carotid duplex study to assess for carotid or vertebral artery stenosis. Pending.?Negative Recommend obtaining 2D echocardiogram to assess for embolic source for stroke.?Negative Recommend cardiac telemetry monitoring to assess for cardiac arrhythmia.?Will need event monitor at discharge. Agree with plans for rehab for strengthening. Patient is referred to inpatient rehab at this time. 05/28/2024 Continue dysphagia level 5 diet. He was advanced yesterday. Continue aspirin Plavix He did have a fever overnight one 1.7. I do suspect urine infection possibly. Will remove Parrish catheter today. Check urine culture, blood culture, sputum culture Gram stain Has been reported inpatient rehab Continue azithromycin. Add ceftriaxone 05/29/2024 inpatient rehab maybe accepting patient however waiting insurance authorization continue aspirin, plavix, afebrile overnight UA positive and suggestive of UTI Urine culture pending blood cutlure, sputum culture pending continue ceftriaxone and azithromycin 05/30/2024 inpatient rehab maybe accepting patient however waiting insurance authorization Continue ceftriaxone for UTI. Urine culture pending this time. Blood cultures pending but negative to date. Sputum culture not collected secondary to no expectoration. Stop azithromycin. Continue ceftriaxone for UTI at this time. Will add amlodipine 10 daily and titrate hydralazine up to 50 3 times daily for high blood pressure and continue metoprolol to tartrate 25 twice daily. Stop Tamiflu. Continue Parrish catheter for urinary retention. We did attempt a voiding trial during hospitalization however patient requires Parrish to go back in. It was replaced yesterday. 05/31/2024 Awaiting placement to rehab. Urine culture is negative possibly due to being sterile since antibiotics were already ordered once culture was obtained. I would complete 7 days total. Continue amlodipine and hydralazine. Blood pressure better controlled at this time. Will need to continue Parrish catheter at discharge. I will add tamsulosin today. June 01, 2024 No acute interim events. Appropriate disposition is ongoing. Blood pressure continues to be well-controlled. Patient lives alone. Does not have any family members. He has in-home services within a checking in on him 5 times a week. He has been hotlined on multiple occasions in the past. Case management was able to discuss patient's case with his home health aide who the patient has assigned is his DPOA. Since he does not have safe and reliable help, has recently had an acute pontine stroke, is exhibiting decreased attention, decreased endurance, decreased strength, incoordination, poor balance and poor trunk and head control on physical therapy assessment, he would not be safe to discharge home to independent living just as yet. Would likely benefit from continued rehab which is attempting to be arranged at this present time. PDMP PDMP Reviewed: Not Reviewed Attestations 2 Medical Necessity Statement*: Awaiting appropriate disposition planning. Coding Level of Care Code Acute Code for [facility] Fwd Diagnoses Influenza A J10.1 COPD exacerbation J44.1 Altered mental state R41.82 Dehydration E86.0
[2024-06-02] VITALS (13 sets, daily range): BP systolic 103–118; BP diastolic 49–67; PULSE 76–95; RESP 15–22; TEMP 36.5–36.8; O2SAT 91–95
[2024-06-02] MEDS: ipratropium-albuterol 3 mL Neb INHALATION ×4 (01:26→21:19)
[2024-06-02] MEDS: budesonide 0.5 mg/2 mL Neb INHALATION ×2 (08:00→21:19)
[2024-06-02] MEDS: duloxetine 60 mg Capsule PO ×2 (08:55→18:23)
[2024-06-02] MEDS: atorvastatin 40 mg Tablet 80 MG PO (08:55)
[2024-06-02] MEDS: clopidogrel 75 mg Tablet PO (08:55)
[2024-06-02] MEDS: metoprolol tartrate 25 mg Tablet PO ×2 (08:55→21:33)
[2024-06-02] MEDS: pantoprazole DR 40 mg Tablet PO (08:55)
[2024-06-02] MEDS: heparin 5,000 unit/mL INJ 1 mL 5000 UNIT SUBCUT ×2 (08:55→21:33)
[2024-06-02] MEDS: hyDRALAzine 25 mg Tablet 50 MG PO ×3 (08:55→21:33)
[2024-06-02] MEDS: aspirin 81 mg EC Tablet PO (08:55)
[2024-06-02] MEDS: tamsulosin 0.4 mg Capsule PO (08:55)
[2024-06-02] MEDS: amlodipine 10 mg Tablet PO (08:56)
[2024-06-02] MEDS: cefTRIAXone 1,000 mg SDV 1000 MG IVP (12:40)
--- NOTE | 2024-06-02 17:51 | P.PN_ITS ---
Subjective 2 Subjective: no acute interim events Medications: Reviewed: Yes Vitals/I&O/Wt Last Vital Signs Temp 98.1 F 06/02/24 16:37 Pulse 82 06/02/24 16:37 Resp 18 06/02/24 16:37 BP 103/49 06/02/24 16:37 Pulse Ox 91 06/02/24 16:37 O2 Del Method Room Air 06/02/24 16:37 O2 Flow Rate 99 05/29/24 20:36 06/02/24 06/02/24 06/02/24 06:59 14:59 22:59 Intake Total 240 / 2260 480 / 480 Output Total 400 / 800 Balance -160 / 1460 480 / 480 Weight last 48 hrs Weight 67.948 kg Weight 65.227 kg Physical Exam 2 Narrative: General: No acute distress, AO x3, slurred speech however overall more alert and awake than on day of admission. HEENT: PERRLA, pupils bilaterally equal and reactive, pallors not present Chest: Normal vesicular breath sounds, no added sounds, equal good air entry bilaterally CVS: S1-S2 regular, no murmurs, no tachycardia, no gallops, no rubs Abdomen: Soft, nontender, no organomegaly, bowel sounds present Urinary Catheter Management: Parrish: Cath Placed During This Visit: yes, but has since been removed by the nurse Reason for Continuing Indwelling Catheter: Acute Urinary Retention or Obstruction Urinary Catheter Date of Insertion: 05/29/24 Urinary Catheter Time of Insertion: 16:45 Date Urinary Catheter Removed: 05/28/24 Time Urinary Catheter Discontinued: 18:27 Data 05/31/24 04:22 06/01/24 02:58 Micro: Microbiology 05/28/24 12:25 Blood Culture - Final Blood NO GROWTH AFTER 5 DAYS 05/28/24 12:20 Blood Culture - Final Blood NO GROWTH AFTER 5 DAYS A&P Assessment and plan (1) Influenza A: influenza A + start Tamiflu 75mg BID (2) COPD exacerbation: Mild COPD exacerbation triggered by acute viral illness. Patient has some coarse crackles which clear after a bout of cough, likley post tussive clearing Start duoneb and budesonide scheduled inhalation Holding off on steroids for now No obvious consolidation on CXR Azithromycin 500mg po daily Potentially may have aspirated given his altered mentation , place on dysphagia diet until more alert (3) Altered mental state: appears lethargic, slow to respond , speech appears slurred, unknown baseline Lives alone reportedly with aide checking in on him ABG requested, reveiwed- no signs of hypoxia or hypercapnea on ABG check CT head to evaluate for stroke (4) Dehydration: clinically dehydrated, disheveled D5NS @ 75 cc/hr , watch for signs of fluid overload Plan Incidentally noted blood at urethral meatus : likely from traumatic straight cath, patient has voided clear urine afterwards, monitor for now DVT ppx: heparin 5000 q12h Full code 05/25/2024 CT head negative for stroke. Lives alone at home. Order occupational therapy assessment today. There is a report of patient getting diagnosed with dementia recently. We will have to assess if he is safe to go home alone at this time. Caregiver is not present 05/11. Check speech therapy evaluation. ? I will check MRI brain Continue normal saline 75 cc/h. Creatinine 1.6 which is at his baseline. 05/26/2024 CT head negative for stroke MRI head shows evidence of acute right pontine non-hemorrhagic infarct and chronic white matter disease. Continue aspirin. Started Plavix Check speech therapy evaluation. Continue normal saline 75 cc/h Creatinine 1.5 this morning down from 1.6 yesterday. Calcium 7.8 this morning trending down from 8.6 (05/24) and 7.9 yesterday (05/25) Potassium 3.4 this morning trending down from 4.4 (05/24) and 4.1 yesterday (05/25) 05/27/2024 - Check speech therapy evaluation.?Dysphagia level 4 extremely thick pur?ed diet. - Aspirin 81 mg p.o. every morning with food. - Continue Plavix 75 mg p.o. every morning with food. - Neurology following Recommended Carotid duplex study to assess for carotid or vertebral artery stenosis. Pending.?Negative Recommend obtaining 2D echocardiogram to assess for embolic source for stroke.?Negative Recommend cardiac telemetry monitoring to assess for cardiac arrhythmia.?Will need event monitor at discharge. Agree with plans for rehab for strengthening. Patient is referred to inpatient rehab at this time. 05/28/2024 Continue dysphagia level 5 diet. He was advanced yesterday. Continue aspirin Plavix He did have a fever overnight one 1.7. I do suspect urine infection possibly. Will remove Parrish catheter today. Check urine culture, blood culture, sputum culture Gram stain Has been reported inpatient rehab Continue azithromycin. Add ceftriaxone 05/29/2024 inpatient rehab maybe accepting patient however waiting insurance authorization continue aspirin, plavix, afebrile overnight UA positive and suggestive of UTI Urine culture pending blood cutlure, sputum culture pending continue ceftriaxone and azithromycin 05/30/2024 inpatient rehab maybe accepting patient however waiting insurance authorization Continue ceftriaxone for UTI. Urine culture pending this time. Blood cultures pending but negative to date. Sputum culture not collected secondary to no expectoration. Stop azithromycin. Continue ceftriaxone for UTI at this time. Will add amlodipine 10 daily and titrate hydralazine up to 50 3 times daily for high blood pressure and continue metoprolol to tartrate 25 twice daily. Stop Tamiflu. Continue Parrish catheter for urinary retention. We did attempt a voiding trial during hospitalization however patient requires Parrish to go back in. It was replaced yesterday. 05/31/2024 Awaiting placement to rehab. Urine culture is negative possibly due to being sterile since antibiotics were already ordered once culture was obtained. I would complete 7 days total. Continue amlodipine and hydralazine. Blood pressure better controlled at this time. Will need to continue Parrish catheter at discharge. I will add tamsulosin today. June 01, 2024 No acute interim events. Appropriate disposition is ongoing. Blood pressure continues to be well-controlled. Patient lives alone. Does not have any family members. He has in-home services within a checking in on him 5 times a week. He has been hotlined on multiple occasions in the past. Case management was able to discuss patient's case with his home health aide who the patient has assigned is his DPOA. Since he does not have safe and reliable help, has recently had an acute pontine stroke, is exhibiting decreased attention, decreased endurance, decreased strength, incoordination, poor balance and poor trunk and head control on physical therapy assessment, he would not be safe to discharge home to independent living just as yet. Would likely benefit from continued rehab which is attempting to be arranged at this present time. June 02, 2024 no acute interim events, disposition planning is ongoing. Planned to discharge to acute rehab, he has been accepted at [facility], awaiting auth PDMP PDMP Reviewed: Not Reviewed Attestations 2 Medical Necessity Statement*: disposition planning Coding Level of Care Code Acute Code for [facility] Fwd Diagnoses Influenza A J10.1 COPD exacerbation J44.1 Altered mental state R41.82 Dehydration E86.0
[2024-06-03] VITALS (8 sets, daily range): BP systolic 108–121; BP diastolic 52–61; PULSE 72–92; RESP 16–18; TEMP 36.8–36.9; O2SAT 4–95; BMI 23.3
[2024-06-03] MEDS: ipratropium-albuterol 3 mL Neb INHALATION ×2 (02:32→08:50)
[2024-06-03] MEDS: atorvastatin 40 mg Tablet 80 MG PO (08:33)
[2024-06-03] MEDS: duloxetine 60 mg Capsule PO (08:33)
[2024-06-03] MEDS: pantoprazole DR 40 mg Tablet PO (08:33)
[2024-06-03] MEDS: tamsulosin 0.4 mg Capsule PO (08:33)
[2024-06-03] MEDS: amlodipine 10 mg Tablet PO (08:33)
[2024-06-03] MEDS: hyDRALAzine 25 mg Tablet 50 MG PO ×2 (08:34→14:56)
[2024-06-03] MEDS: aspirin 81 mg EC Tablet PO (08:34)
[2024-06-03] MEDS: clopidogrel 75 mg Tablet PO (08:34)
[2024-06-03] MEDS: metoprolol tartrate 25 mg Tablet PO (08:34)
[2024-06-03] MEDS: heparin 5,000 unit/mL INJ 1 mL 5000 UNIT SUBCUT (08:34)
[2024-06-03] MEDS: acetaminophen 325 mg Tablet 650 MG PO (08:41)
[2024-06-03] MEDS: budesonide 0.5 mg/2 mL Neb INHALATION (08:50)
[2024-06-03] MEDS: cefTRIAXone 1,000 mg SDV 1000 MG IVP (11:24)
--- NOTE | 2024-06-03 11:40 | PM.DCS ---
Discharge Providers Date of Admission: 05/25/24 12:40 Date of Discharge: June 03, 2024 Attending Provider at Admission: Raya Hartman MD Attending Provider at Discharge: Raya Hartman MD Primary Care Provider: EVELYN Bennett Diagnoses at Discharge Discharge Diagnosis (1) Influenza A: Status: Acute (2) COPD exacerbation: Status: Acute (3) Altered mental state: Status: Acute (4) Dehydration: Status: Acute Reason for Visit Reason for Visit: WEAKNESS Hospital Course Hospital Course Scott Silva is an 83-year-old with PMHx of COPD who presented to ER on 05/24 with complaints that his legs stopped the night before. He also has a history of a chronic cough and noticed it had worsened with occasional chest pain after coughing. Patient was tested positive for Influenza A and was started on Tamiflu 75mg BID. Signs of mild COPD exacerbation triggered by acute viral illness were noticed and he was started on duoneb and budenoside along with azithromycin 500mg po daily. CXR showed no obvious consolidation. Patient has AMS and there were concerns for potential aspiration and patient was placed on dysphagia diet until he became more alert. Patient was clinically dehydrated and placed on D5NS @ 75 cc/hr. ABG was reviewed and showed no signs of hypoxia or hypercapnia. CT head showed no acute intracranial abnormality. 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 Neurology was consulted. Patient continued aspirin and plavix was started on 05/26. heparin 5000 q12h for DVT prophylaxis. Carotid duplex was recommended and showed < 50% stenosis in right and left ICA with moderate atheromatous plaques. Normal anterograde doppler flow in both left and right vertebral arteries. Patient agreed with rehab for strengthening and is being transferred to [facility] rehab. Physical Exam Narrative: General: No acute distress, AO x3 HEENT: PERRLA, pupils bilaterally equal and reactive, pallors not present Chest: Normal vesicular breath sounds, no added sounds, equal good air entry bilaterally CVS: S1-S2 regular, no murmurs, no tachycardia, no gallops, no rubs Abdomen: Soft, nontender, no organomegaly, bowel sounds present Urinary Catheter Management: Parrish: Cath Placed During This Visit: yes, but has since been removed by the nurse Reason for Continuing Indwelling Catheter: Acute Urinary Retention or Obstruction Urinary Catheter Date of Insertion: 05/29/24 Urinary Catheter Time of Insertion: 16:45 Date Urinary Catheter Removed: 05/28/24 Time Urinary Catheter Discontinued: 18:27 Discharge Data Studies Completed and Pending Completed Studies During Hospitalization Category Date Time Status CT head wo con* [id number] Routine Cat Scan 05/24/24 18:18 Completed XR KUB portable [id number] Routine Exams 05/25/24 13:16 Completed XR chest 1V portable [id number] Stat Exams 05/24/24 08:07 Completed MR head wo con* [id number] Routine MRI 05/25/24 12:44 Completed CV carotid duplex BI* [id number] Routine Ultrasound 05/26/24 20:13 Completed CV. echo complete* [id number] Routine Ultrasound 05/25/24 21:17 Completed Pending at discharge Category Date Time Status Sputum Culture and Gram Stain Stat Lab 05/28/24 11:21 Uncollected Radiology Impressions Chest X-Ray 05/24/24 08:07 IMPRESSION: No acute abnormality Head CT 05/24/24 18:18 IMPRESSION: No acute intracranial abnormality. Head MRI 05/25/24 12:44 IMPRESSION: 1. Acute RIGHT pontine, nonhemorrhagic infarct. 2. No hemorrhage. 3. Extensive chronic white matter disease. 4. Ventriculomegaly with mild progression since 2020. May be related to atrophy or normal pressure hydrocephalus. KUB X-Ray 05/25/24 13:16 IMPRESSION: No metallic contraindication for MRI as above. Laboratory Results WBC 7.68 10^3/uL (3.29-11.43) 05/31/24 04:22 RBC 3.40 10^6/uL (3.85-5.65) L 05/31/24 04:22 Hgb 11.00 g/dL (11.27-16.99) L 05/31/24 04:22 Hct 33.2 % (37-53) L 05/31/24 04:22 MCV 97.6 fl (82-101) 05/31/24 04:22 MCH 32.4 pg (27-33) 05/31/24 04:22 MCHC 33.1 g/dL (30-55) 05/31/24 04:22 RDW 12.8 % (12.1-15.1) 05/31/24 04:22 Plt Count 232 10^3/cmm (157-399) D 05/31/24 04:22 MPV 11.1 fL (7.4-10.4) H 05/31/24 04:22 Neut % (Auto) 78.7 % 05/31/24 04:22 Lymph % (Auto) 11.6 % 05/31/24 04:22 [place] % (Auto) 8.2 % 05/31/24 04:22 Eos % (Auto) 0.7 % 05/31/24 04:22 Baso % (Auto) 0.1 % 05/31/24 04:22 Neut # (Auto) 6.05 10^3/uL (1.8-7.7) 05/31/24 04:22 Lymph # (Auto) 0.9 10^3/uL (0.8-4.8) 05/31/24 04:22 [place] # (Auto) 0.6 10^3/uL (0.2-0.9) 05/31/24 04:22 Eos # (Auto) 0.1 10^3/uL (0.0-0.8) 05/31/24 04:22 Baso # (Auto) 0.0 10^3/uL (0.0-0.1) 05/31/24 04:22 Nucleated RBC % (auto) 0 % 05/31/24 04:22 Nucleated RBCs # 0.0 /100WBC 05/31/24 04:22 D-Dimer 0.83 ug/mLFEU (0-0.59) H 05/24/24 08:19 Specimen Type Arterial 05/24/24 17:30 Sample Site Brachial, left 05/24/24 17:30 ABG pH 7.44 (7.35-7.45) 05/24/24 17:30 ABG pCO2 31.7 mmHg (35-45) L 05/24/24 17:30 ABG pO2 67.1 mmHg (80.0-100.0) L 05/24/24 17:30 ABG PO2/FiO2 Ratio 319 05/24/24 17:30 ABG HCO3 21.3 mmol/L (22-26) L 05/24/24 17:30 ABG O2 Saturation 95.8 05/24/24 17:30 ABG Base Excess -2.2 mmol/L (-2.0-2.0) L 05/24/24 17:30 Manuel Test N/a 05/24/24 17:30 A-a O2 Gradient 5.7 mmHg (5-10) 05/24/24 17:30 Hematocrit 34.5 % (42-52) L 05/24/24 17:30 Hgb O2 Saturation 93.8 % (95-100) L 05/24/24 17:30 Carboxyhemoglobin 1.0 %THgb (0.4-20.1) 05/24/24 17:30 Methemoglobin 1.1 % (0.4-1.5) 05/24/24 17:30 Total Hemoglobin 11.3 g/dL (14-18) L 05/24/24 17:30 Sodium 134.0 mmol/L (131-143) 05/24/24 17:30 Potassium 4.2 mmol/L (3.5-5.0) 05/24/24 17:30 Glucose 97.0 mg/dL (70-115) 05/24/24 17:30 Ionized Calcium 1.1 mmol/L (1.1-1.4) 05/24/24 17:30 O2 Delivery Device Room air 05/24/24 17:30 FiO2 21.0 % 05/24/24 17:30 Farm Demonstrator ID Amh 05/24/24 17:30 Sodium 135 mmol/L (136-145) L 06/01/24 02:58 Potassium 3.7 mmol/L (3.5-5.1) 06/01/24 02:58 Chloride 102 mmol/L (98-107) 06/01/24 02:58 Carbon Dioxide 19 mmol/L (22-29) L 06/01/24 02:58 Anion Gap 17.7 (5-19) 06/01/24 02:58 BUN 28 mg/dL (8-23) H 06/01/24 02:58 Creatinine 1.4 mg/dL (0.7-1.2) H 06/01/24 02:58 GFR Calculation Not Reportable 06/01/24 02:58 Glucose 108 mg/dL (65-115) 06/01/24 02:58 POC Glucose 104 mg/dL (70-110) 05/24/24 21:16 Estimat Average Glucose 88 05/26/24 05:50 Hemoglobin A1c 4.7 % (4.0-6.0) 05/26/24 05:50 Calculated Osmolality 286 mOsm/kg (285-295) 06/01/24 02:58 Lactic Acid 1.9 mmol/L (0.5-2.2) 05/24/24 08:19 Calcium 8.1 mg/dL (8.5-10.5) L 06/01/24 02:58 Magnesium 2.0 mg/dL (1.7-2.3) 05/31/24 04:22 Total Bilirubin 0.4 mg/dL (0.15-1.2) 05/25/24 06:01 AST 17 U/L (0-40) 05/25/24 06:01 ALT 8 U/L (0-41) 05/25/24 06:01 Alkaline Phosphatase 71 U/L (40-130) 05/25/24 06:01 Troponin T Baseline 12 ng/L (0-15) 05/24/24 08:19 Troponin T 120 Minute 10.52 ng/L (0-15) 05/24/24 10:15 Delta Troponin T -1.48 ABS# (0-10) L 05/24/24 10:15 Troponin T Hi Sens 6Hr 12.80 ng/L (0-15) 05/24/24 17:04 Troponin T Hi Sens 6Hr Delta 0.80 ng/L (0-12) 05/24/24 17:04 Total Protein 5.8 g/dL (6.6-8.7) L 05/25/24 06:01 Albumin 3.5 g/dL (3.5-5.2) 05/25/24 06:01 Globulin 2.3 g/dL (1.3-4.6) 05/25/24 06:01 Triglycerides 55 mg/dL (0-150) 05/26/24 05:50 Cholesterol 95 mg/dL (0-200) 05/26/24 05:50 LDL Cholesterol, Calc 35 mg/dL (50-129) L 05/26/24 05:50 Total VLDL Cholesterol 11 mg/dL (0-30) 05/26/24 05:50 HDL Cholesterol 49 mg/dL (60-100) L 05/26/24 05:50 Cholesterol/HDL Ratio 1.94 mg/dL (1.0-5.00) 05/26/24 05:50 TSH 1.73 uIU/mL (0.27-4.20) 05/26/24 05:50 Urine Color Dark yellow (Yellow) A 05/28/24 12:51 Urine Appearance Cloudy (CLEAR) A 05/28/24 12:51 Urine pH 5 (5-7) 05/28/24 12:51 Ur Specific [place] 1.020 (1.005-1.030) 05/28/24 12:51 Urine Protein 3+ (Negative) H 05/28/24 12:51 Urine Glucose (UA) Norm (Normal) 05/28/24 12:51 Urine Ketones Negative (Negative) 05/28/24 12:51 Urine Blood 3+ (Negative) H 05/28/24 12:51 Urine Nitrate Positive (Negative) A 05/28/24 12:51 Urine Bilirubin 2+ (Negative) H 05/28/24 12:51 Urine Urobilinogen 1 mg/dL (Negative) H 05/28/24 12:51 Ur Leukocyte Esterase 1+ (Negative) H 05/28/24 12:51 Urine RBC >100 /hpf (0-2) H 05/28/24 12:51 Urine WBC 11-20 /hpf (0-5) H 05/28/24 12:51 Ur Squamous Epith Cells Rare /hpf (0-5) 05/28/24 12:51 Amorphous Sediment Not Reportable 05/28/24 12:51 Urine Bacteria 2+ /hpf (NONE) H 05/28/24 12:51 Hyaline Casts 0.40 /lpf 05/24/24 13:14 Coronavirus (PCR) Negative (Negative) 05/24/24 09:20 Influenza A (PCR) Positive (Negative) 05/24/24 09:20 Influenza Type B (PCR) Negative (Negative) 05/24/24 09:20 RSV (PCR) Negative (Negative) 05/24/24 09:20 Vitals Last Vital Signs Temp 98.2 F 06/03/24 11:26 Pulse 85 06/03/24 11:26 Resp 18 06/03/24 11:26 BP 110/52 06/03/24 11:26 Pulse Ox 95 06/03/24 11:26 O2 Del Method Room Air 06/03/24 11:26 O2 Flow Rate 99 05/29/24 20:36 Discharge Plan Discharge Patient Disposition: Home Condition: Stable Prescriptions: New atorvastatin 40 mg Tablet 40 mg PO DAILY 30 Days Qty: 30 0RF hydralazine 25 mg Tablet 25 mg PO TID Qty: 90 0RF clopidogrel 75 mg Tablet 75 mg PO DAILY Qty: 30 0RF pantoprazole 40 mg Tablet,Delayed Release (Dr/Ec) 40 mg PO DAILY Qty: 30 0RF tamsulosin 0.4 mg Capsule 0.4 mg PO DAILY 30 Days Qty: 30 0RF amlodipine 10 mg Tablet 10 mg PO DAILY 30 Days Qty: 30 0RF Continued (DME) DME: Walker Unit See Rx Instructions .ROUTE .MEDSUPPLY Qty: 1 0RF Rx Instructions: Code E0143 and E0156 walker 4 wheels and seat aspirin [Adult Low Dose Aspirin] 81 mg tablet,delayed release (DR/EC) 81 mg PO DAILY ergocalciferol (vitamin D2) 1,250 mcg (50,000 unit) capsule 1,250 mcg PO .weekly Qty: 4 2RF duloxetine [Cymbalta] 60 mg capsule,delayed release(DR/EC) 60 mg PO BID Qty: 60 2RF gabapentin 100 mg capsule 100 mg PO BID Qty: 60 2RF magnesium oxide 400 mg magnesium capsule 400 mg PO BID Qty: 60 2RF metoprolol tartrate 25 mg tablet 25 mg PO BID@0900,2100 Qty: 60 2RF Anoro Ellipta 62.5-25 mcg/actuation blister with device 1 inh inhalation Q24H Qty: 60 2RF Discontinued atorvastatin 10 mg tablet 10 mg PO DAILY Qty: 30 2RF Discharge Orders: Discharge Order (Routine); Ordered 06/03/24 Ordered By: Raya Hartman Other Ambulatory Orders: MCT/Event Monitor 30 Days (Routine) Timeframe: 1 Day Facility: [facility] - Location: Radiology Ordered By: Corrie Desouza Referrals: Prem Lerma, [employer]IST[employer] [Primary Care Provider] - Discharge Diet: Cardiac Discharge Activity: Resume usual activity Patient Instructions: COPD, Hydralazine (By mouth) (Apresoline), Amlodipine (By mouth) (Hypertenipine-2.5, Norvasc, Norliqva), Atorvastatin (By mouth), Tamsulosin (By mouth) (Flomax), Clopidogrel (By mouth) (Plavix), Pantoprazole (By mouth) (Protonix), Dehydration (DC), Ischemic Stroke (DC), Opioid Safety, Stroke Stoplight Activity Restrictions/Additional Instructions: Appointment made for 30 day event monitor on SaturdayJune 01 at 3pm. Please arrive to [facility] 15 minutes prior to appointment.[facility] WILL CALL WITH APPOINTMENT FOR HEART MONITOR Discharge Attestations Time Spent in Discharge Care*: greater than 30 min Quality Metrics Clinical Quality Measures [ Cerebrovascular Accident { Contraindication to Antithrombotic: None; antithrombotic prescribed; Contraindication to Anticoagulation: Overlap treatment not indicated; Contraindication to Statin: None; Statin prescribed;}] Coding Level of Care Code Acute Code for [facility] Diagnoses Influenza A J10.1 COPD exacerbation J44.1 Altered mental state R41.82 Dehydration E86.0
--- NOTE | 2024-06-03 13:22 | PC.OT ---
OT treatment attempted with pt preparing for discharge; unable to complete treatment at this time.
== END 2024-06-03 15:30 | DRG 65 ==
LOC: ER 10:49 → ER IP 16:11 → MEDSURG 19:54
PROVIDERS: Internal Medicine; Admitting Provider Student in an Organized Health Care Education/Training Program; Emergency Provider Emergency Medicine; PCP Nurse Practitioner; Visit Provider Student in an Organized Health Care Education/Training Program
DX: I63.9 Cerebral infarction, unspecified (principal); G93.40 Encephalopathy, unspecified; J44.1 Chronic obstructive pulmonary disease with (acute) exacerbation; S37.39XA Other injury of urethra, initial encounter; N39.0 Urinary tract infection, site not specified; J10.1 Influenza due to other identified influenza virus with other respiratory manifestations; E86.0 Dehydration; I65.23 Occlusion and stenosis of bilateral carotid arteries; I10 Essential (primary) hypertension; R31.9 Hematuria, unspecified; T83.098A Other mechanical complication of other urinary catheter, initial encounter; Y84.9 Medical procedure, unspecified as the cause of abnormal reaction of the patient, or of later complication, without mention of misadventure at the time of the procedure; F17.210 Nicotine dependence, cigarettes, uncomplicated; M51.16 Intervertebral disc disorders with radiculopathy, lumbar region; R33.9 Retention of urine, unspecified; Z79.82 Long term (current) use of aspirin
CPT/HCPCS: 36415; 36416; 36600; 51702; 51798; 70450; 70551; 71045; 74018; 80048; 80051; 80053; 80061; 81001; 82330; 82805; 82962; 83036; 83605; 83735; 84443; 84484; 85025; 85378; 87040; 87086; 87637; 92507; 92523; 92526; 92610; 93005; 93306; 93880; 94640; 96372; 97110; 97161; 97167; 97530; 97535; G0378; J0696; J1644; J7030; J7042; J7626; Q0144

== ENCOUNTER 2024-09-17 08:47 | Outpatient (CLI) | payer MEDICAID, SELFPAY ==
--- NOTE | 2024-09-17 08:54 | FL_ITS ---
WS: [id number] FL barium swallow modifd [id number] REASON FOR EXAM: Other dysphagia FLUOROSCOPY TIME: 5min [id number] # OF SPOT FILMS: 0 TECHNIQUE: Examination was supervised by the speech therapy department. Patient was examined in the sitting upright lateral position. The swallowing of varying consistencies of barium was monitored fluoroscopically and video recorded. FINDINGS: With thin liquids there was Penetration of contrast into the laryngeal vestibule without aspiration. There was no impedance to the passage of a barium tablet through the thoracic esophagus and into the stomach. FL/FL barium swallow modifd [id number] IMPRESSION: Penetration into the laryngeal vestibule as above. A detailed report of the swallowing will be rendered by the speech therapy depa rtment.
== END 2024-09-17 08:48 | disposition home or self-care (01) ==
PROVIDERS: PCP Nurse Practitioner; Visit Provider Internal Medicine
DX: R13.10 Dysphagia, unspecified (principal); I63.50 Cerebral infarction due to unspecified occlusion or stenosis of unspecified cerebral artery
CPT/HCPCS: 74230; 92611